=== PATIENT | male | born 1960 | race Caucasian/White ===

== ENCOUNTER 2023-02-25 09:12 | Day surgery (SDC) | payer OTHER ==
[2023-02-23 12:18] VITALS: BMI 43.5
[~2023-02-25 09:12] MED LIST: LACTATED RINGERS 1,000 ML IV SCH
[2023-02-25 09:44] VITALS: TEMP 97
[2023-02-25 09:57] LABS: Glucose,Whole Blood 108 mg/dL (70-110)
[2023-02-25] MEDS ORDERED: PROPOFOL 10 MG/ML 20 ML VIAL IV ONE (10:11)
[2023-02-25] MEDS ORDERED: LIDOCAINE 2% (PF) 20 MG/ML 5 ML VIAL ONE (10:11)
--- NOTE | 2023-02-25 10:19 | P.PCN ---
Date of Procedure: 02/25/23 Procedure(s) Performed: BRIEF HISTORY: Patient is a 62-year-old, pleasant, White female scheduled for an upper endoscopy as a part of evaluation long-standing history of GERD and Barton's esophagus. Last EGD was 3 years ago. He is maintained on omeprazole 20 mg daily and remains asymptomatic. PROCEDURE PERFORMED: Esophagogastroduodenoscopy with biopsy. PREOPERATIVE DIAGNOSIS: GERD/Barton's esophagus. IV sedation per anesthesia. PROCEDURE: After informed consent was obtained, the patient was brought into the endoscopy unit. IV sedation was administered by Anesthesia under continuous monitoring. Initially the Olympus GIF-140 video endoscope was inserted into the mouth. Esophagus intubated without any difficulty. It was gradually advanced into the stomach and duodenum and carefully examined. The bulb and the second part of the duodenum appeared normal. The scope at this time was withdrawn to the stomach, adequately insufflated with air, and upon careful examination, mucosa of the antrum, body, cardia and the fundus appeared normal. There was large amount of retained solid food in the stomach suggestive of diabetic gastroparesis. The scope was then withdrawn into the esophagus. The GE junction was located at 40 cm from the incisors. There was long segment of Barton's esophagus and a 35-40 cm from the incisors status post multiple biopsies to rule out dysplasia. The rest of the esophagus appeared normal. There were no erosions or ulcerations seen and the patient tolerated the procedure well. IMPRESSION: 1. Long segment Barton's esophagus extending from 35 cm to 40 cm from the incisors status post multiple biopsies to rule out dysplasia. 2. Retained food in the stomach suggestive of diabetic gastroparesis.. RECOMMENDATIONS: The findings of this examination were discussed with the patient as well as his family. Was advised to follow with the biopsy results. If the biopsy does not show any evidence of dysplasia, he can have a repeat upper endoscopy in 3 years.. In the meantime he will continue with omeprazole 20 mg daily and follow antireflux measures.
[2023-02-25 10:37] VITALS: RESP 18
[2023-02-25 11:02] VITALS: BP 106/68; PULSE 76
== END 2023-02-25 10:59 | disposition home or self-care (01) ==
LOC: ORWHC2ENDO 09:12
PROVIDERS: ATTEND Internal Medicine Gastroenterology
DX: K22.70 Barrett's esophagus without dysplasia (principal); K21.9 Gastro-esophageal reflux disease without esophagitis; I48.91 Unspecified atrial fibrillation; J45.909 Unspecified asthma, uncomplicated; E11.9 Type 2 diabetes mellitus without complications; N28.9 Disorder of kidney and ureter, unspecified; I63.9 Cerebral infarction, unspecified; E89.6 Postprocedural adrenocortical (-medullary) hypofunction; Z79.84 Long term (current) use of oral hypoglycemic drugs; Z79.85 Long-term (current) use of injectable non-insulin antidiabetic drugs; Z79.01 Long term (current) use of anticoagulants; Z79.899 Other long term (current) drug therapy; Z98.890 Other specified postprocedural states
CPT/HCPCS: 88305; 43239; J2704; J2001

== ENCOUNTER → 2023-06-01 | Outpatient (CLI) | payer OTHER ==
[2023-06-01 09:05] LABS: INR 1.1 (<1.2); Prothrombin Time 12.1 sec (10.0-12.5)
== END | disposition home or self-care (01) ==
LOC: LABWHC1 08:32
PROVIDERS: ATTEND Dentist Oral and Maxillofacial Surgery
DX: D68.32 Hemorrhagic disorder due to extrinsic circulating anticoagulants (principal)
CPT/HCPCS: 36415; 85610

== ENCOUNTER 2023-06-04 19:42 | Inpatient (IN) | payer OTHER ==
[2023-06-04] MEDS: DILTIAZEM 125 MG in SODIUM CHLORIDE 0.9% 100 ML IV SCH (23:12)
[2023-06-04 23:19] LABS: Basophils # (A) 0.1 k/uL (0-0.2); Basophils % (A) 1 %; Eosinophils % (A) 0 %; HCT 54.2 % (39.0-53.0); Lymphocytes # (A) 1.4 k/uL (1.0-4.8); Lymphocytes % (A) 7 %; MCHC 33.3 g/dL (31.0-37.0); MCV 96.2 fL (80.0-100.0); Mean Platelet Volume 9.4; Monocytes # (A) 1.3 k/uL (0-1.0); Monocytes % (A) 7 %; Neutrophils % (A) 84 %; Platelet Count 479 k/uL (150-450); RBC 5.63 m/uL (4.30-5.90); RDW 15.3 % (11.5-15.5)
[2023-06-04 23:29] LABS: ALT 81 U/L (4-49); AST 129 U/L (17-59); African American GFR (CKD) >90 (>60 ml/min/1.73 sqM); Albumin 3.1 g/dL (3.5-5.0); Alkaline Phosphatase 160 U/L (38-126); Anion Gap 16 mmol/L; Blood Urea Nitrogen 27 mg/dL (9-20); Carbon Dioxide 19 mmol/L (22-30); Chloride 98 mmol/L (98-107); Glucose 111 mg/dL (74-99); Non-African American GFR(CKD) 80 (>60 ml/min/1.73 sqM); Potassium 5.2 mmol/L (3.5-5.1); Sodium 133 mmol/L (137-145); Total Bilirubin 0.8 mg/dL (0.2-1.3)
[2023-06-04 23:41] LABS: INR 1.2 (<1.2); Partial Thromboplastin Time 25.7 sec (22.0-30.0); Prothrombin Time 12.9 sec (10.0-12.5)
--- NOTE | 2023-06-04 23:53 | ED ---
Arrhythmia/Palpitations HPI - General Chief Complaint: Arrhythmia/Palpitations Stated Complaint: AFIB RVR, Pneumonia Time Seen by Provider: 06/04/23 19:50 Source: RN/MD, EMS Mode of arrival: EMS - History of Present Illness Initial Comments: Patient presents as a transfer from [facility]. He went in for shortness of breath and chest pain. Has worsened over the past 2 days patient has had a mild cough. Cough is not productive. Increasing fatigue with minimal exercise. Denies any fevers or chills. He has a history of A-fib and is usually in A-fib. He takes Coumadin. He is not on oxygen. Patient's states that the patient had 6 teeth removed on Thursday. Workup was completed at the outside facility. Patient was found to be in A-fib with RVR and was started on a Cardizem drip. Laboratory studies demonstrated a white blood cell count of 19.3. INR was 1.3. Influenza and COVID was negative. He did have a CT of his chest performed which demonstrated pleural effusions, stable small pericardial effusion and atelectasis with a developing left lower lobe infiltrate. Patient was given IV antibiotics to include Rocephin and azithromycin and transferred to our facility for higher level of care. He follows with Dr. Dahl and Dr. Ledesma. - Related Data Home Medications Medication Instructions Recorded Confirmed Cyanocobalamin [Vitamin B-12] 500 mcg PO HS 02/23/23 06/04/23 Cyclobenzaprine [Flexeril] 10 mg PO HS 02/23/23 06/04/23 DULoxetine HCL [Cymbalta] 60 mg PO DAILY 02/23/23 06/04/23 Ergocalciferol [Vitamin D2 (1250 1,250 mcg PO Q14D 02/23/23 06/04/23 Mcg = 86150 Iu)] Montelukast [Singulair] 10 mg PO DAILY 02/23/23 06/04/23 Niacin 1,000 mg PO DAILY 02/23/23 06/04/23 Omalizumab [Xolair] 300 mg SQ Q30D 02/23/23 06/04/23 Omeprazole [PriLOSEC] 20 mg PO DAILY 02/23/23 06/04/23 Pravastatin Sodium [Pravachol] 40 mg PO HS 02/23/23 06/04/23 Pyridoxine HCl (Vitamin B6) 100 mg PO DAILY 02/23/23 06/04/23 [Vitamin B-6] Spironolactone [Aldactone] 25 mg PO DAILY 02/23/23 06/04/23 Warfarin [Coumadin] 5 mg PO SUMOTUWETHSA@2100 02/23/23 06/04/23 allopurinoL 100 mg PO HS 02/23/23 06/04/23 calcitrioL 0.25 mcg PO HS 02/23/23 06/04/23 traMADol HCL 50 mg PO TID PRN 02/23/23 06/04/23 traZODone HCL 100 mg PO HS 02/23/23 06/04/23 Acetaminophen-Codeine 300-30mg 1 tab PO Q4H PRN 06/04/23 06/04/23 [Tylenol w/codeine #3] Albuterol Inhaler [Ventolin Hfa 1 - 2 puff INHALATION RT-Q6H PRN 06/04/23 06/04/23 Inhaler] Amoxicillin 875 mg PO BID 06/04/23 06/04/23 Beclomethasone Dipropionate [Qvar 1 puff INHALATION RT-BID PRN 06/04/23 06/05/23 80mcg Redihaler] Chlorhexidine Gluconate [Peridex] 15 ml PO DIRECTED 06/04/23 06/04/23 Dapagliflozin Propanediol [Farxiga] 10 mg PO DAILY 06/04/23 06/04/23 EPINEPHrine (Auto Inject) [Epipen] 0.3 mg IM ONCE PRN 06/04/23 06/04/23 Ipratropium-Albuterol Nebulize 3 ml INHALATION RT-Q4H PRN 06/04/23 06/04/23 [Duoneb 0.5 mg-3 mg/3 ml Soln] Magnesium Oxide [Magox 400] 800 mg PO DAILY 06/04/23 06/04/23 Metoprolol Tartrate [Lopressor] 50 mg PO BID 06/04/23 06/04/23 Pregabalin [Lyrica] 50 mg PO HS 06/04/23 06/04/23 Tirzepatide [Mounjaro] 10 mg SQ RODRIGUEZ 06/04/23 06/04/23 Warfarin [Coumadin] 7.5 mg PO FR@2100 06/04/23 06/04/23 Allergies Allergy/AdvReac Type Severity Reaction Status Date / Time No Known Allergies Allergy Verified 06/04/23 21:28 Review of Systems ROS Statement: Those systems with pertinent positive or pertinent negative responses have been documented in the HPI. ROS Other: All systems not noted in ROS Statement are negative. Past Medical History Past Medical History: Atrial Fibrillation, Asthma, CVA/TIA, Diabetes Mellitus, Deep Vein Thrombosis (DVT), GERD/Reflux, Renal Disease, Sleep Apnea/CPAP/BIPAP Additional Past Medical History / Comment(s): MARTINEZ'S ESOPHAGUS, GOUT, MULT. TIA'S, STAGE 2 KIDNEY DISEASE, CONN DISEASE History of Any Multi-Drug Resistant Organisms: None Reported Past Surgical History: Cholecystectomy, Hernia Repair Additional Past Surgical History / Comment(s): ADRENAL GLAND REMOVAL (CONN DISEASE), STAN FUNDOPLICATION, MULT. HERNIA REPAIRS, carpal tunnel Past Anesthesia/Blood Transfusion Reactions: No Reported Reaction Past Psychological History: Anxiety, Depression Smoking Status: Never smoker Past Alcohol Use History: None Reported Past Drug Use History: None Reported General Exam General appearance: alert, in no apparent distress Head exam: Present: atraumatic, normocephalic, normal inspection Eye exam: Present: normal appearance, PERRL, EOMI. Absent: scleral icterus, conjunctival injection, periorbital swelling ENT exam: Present: normal exam, mucous membranes moist Neck exam: Present: normal inspection. Absent: tenderness, meningismus, lymphadenopathy Respiratory exam: Present: normal lung sounds bilaterally, decreased breath sounds. Absent: respiratory distress, wheezes, rales, rhonchi, stridor Cardiovascular Exam: Present: tachycardia, irregular rhythm. Absent: systolic murmur, diastolic murmur, rubs, gallop, clicks GI/Abdominal exam: Present: soft, normal bowel sounds. Absent: distended, tenderness, guarding, rebound, rigid Extremities exam: Present: normal inspection, full ROM, normal capillary refill. Absent: tenderness, pedal edema, joint swelling, calf tenderness Back exam: Present: normal inspection Neurological exam: Present: alert, oriented X3, CN II-XII intact Psychiatric exam: Present: normal affect, normal mood Skin exam: Present: warm, dry, intact, normal color. Absent: rash Course Vital Signs 06/04/23 06/04/23 06/04/23 19:44 21:00 22:00 Temperature 98.2 F 99.8 F H Pulse Rate 126 H 128 H 136 H Respiratory 18 20 18 Rate Blood Pressure 137/99 131/89 141/94 O2 Sat by Pulse 98 95 95 Oximetry 06/04/23 06/05/23 23:00 00:00 Temperature Pulse Rate 118 H 116 H Respiratory 18 18 Rate Blood Pressure 113/76 110/83 O2 Sat by Pulse 95 95 Oximetry Medical Decision Making - Medical Decision Making Was pt. sent in by a medical professional or institution (, PA, [employer] PROGRAMMER, urgent care, hospital, or group home...) When possible be specific @ -Patient sent from [facility] Did you speak to anyone other than the patient for history (EMS, parent, family, police, friend...)? What history was obtained from this source @ -Spoke with EMS Did you review nursing and triage notes (agree or disagree)? Why? @ -I reviewed and agree with nursing and triage notes Were old charts reviewed (outside hosp., previous admission, EMS record, old EKG, old radiological studies, urgent care reports/EKG's, group home records)? Report findings @ -I reviewed the patient's chart from [facility] Differential Diagnosis (chest pain, altered mental status, abdominal pain women, abdominal pain men, vaginal bleeding, weakness, fever, dyspnea, syncope, headache, dizziness, GI bleed, back pain, seizure, CVA, palpatations, mental health, musculoskeletal)? @ -Differential Dyspnea: Coronary syndrome, arrhythmia, tamponade, asthma, COPD, pulmonary embolism, pneumonia, pneumothorax, pulmonary effusion, anaphylaxis, diabetic ketoacidosis, flailed chest, pulmonary contusion, diaphragmatic rupture, anemia, neuromuscular, this is not meant to be an all-inclusive list. EKG interpreted by me (3pts min.). @ -Yes and demonstrates atrial flutter with a rate of 132. QRS 74. QTc of 433. No acute ST segment elevations or depressions X-rays interpreted by me (1pt min.). @ -None done CT interpreted by me (1pt min.). @ -None done U/S interpreted by me (1pt. min.). @ -None done What testing was considered but not performed or refused? (CT, X-rays, U/S, labs)? Why? @ -None What meds were considered but not given or refused? Why? @ -None Did you discuss the management of the patient with other professionals (professionals i.e. , PA, [employer] PROGRAMMER, lab, RT, psych nurse, hospital social worker, bonding machine setter, teacher, detention officer, case planner)? Give summary @ -Spoke with Dr. Rowan for admission Was smoking cessation discussed for >3mins.? @ -No Was critical care preformed (if so, how long)? @ -Yes, 40 minutes Were there social determinants of health that impacted care today? How? (Homelessness, low income, unemployed, alcoholism, drug addiction, transportation, low edu. Level, literacy, decrease access to med. care, penitentiary, rehab)? @ -No Was there de-escalation of care discussed even if they declined (Discuss DNR or withdrawal of care, Hospice)? DNR status @ -No What co-morbidities impacted this encounter? (DM, HTN, Smoking, COPD, CAD, Cancer, CVA, ARF, Chemo, Hep., AIDS, mental health diagnosis, sleep apnea, morbid obesity)? @ -Congestive heart failure Was patient admitted / discharged? Hospital course, mention meds given and r oute, prescriptions, significant lab abnormalities, going to OR and other pertinent info. @ -Admitted. Upon arrival I did review the patient's transfer packet. I repeated a set of labs. Cardizem was continued. Patient admitted to Dr. Rowan who accepted admission Undiagnosed new problem with uncertain prognosis? @ -Yes Drug Therapy requiring intensive monitoring for toxicity (Heparin, Nitro, Insulin, Cardizem)? @ -Yes, Cardizem Were any procedures done? @ -No Diagnosis/symptom? @ -Acute respiratory insufficiency, A-fib with RVR, community-acquired pneumonia, acute exacerbation of CHF, pericardial effusion Acute, or Chronic, or Acute on Chronic? @ -Acute Uncomplicated (without systemic symptoms) or Complicated (systemic symptoms)? @ -Complicated Side effects of treatment? @ -No Exacerbation, Progression, or Severe Exacerbation? @ -No Poses a threat to life or bodily function? How? (Chest pain, [place], HI, pneumonia, PE, COPD, DKA, ARF, appy, cholecystitis, CVA, Diverticulitis, Homicidal, Suicidal, threat to staff... and all critical care pts) @Yes as patient does have respiratory insufficiency - Lab Data Result diagrams: 06/07/23 04:20 06/07/23 04:20 Lab Results 06/04/23 06/04/23 06/04/23 Range/Units 23:09 23:09 23:09 WBC 19.0 H (3.8-10.6) k/uL RBC 5.63 (4.30-5.90) m/uL Hgb 18.0 H (13.0-17.5) gm/dL Hct 54.2 H (39.0-53.0) % MCV 96.2 (80.0-100.0) fL MCH 32.0 (25.0-35.0) pg MCHC 33.3 (31.0-37.0) g/dL RDW 15.3 (11.5-15.5) % Plt Count 479 H (150-450) k/uL MPV 9.4 Neutrophils % 84 % Lymphocytes % 7 % Monocytes % 7 % Eosinophils % 0 % Basophils % 1 % Neutrophils # 16.0 H (1.3-7.7) k/uL Lymphocytes # 1.4 (1.0-4.8) k/uL Monocytes # 1.3 H (0-1.0) k/uL Eosinophils # 0.0 (0-0.7) k/uL Basophils # 0.1 (0-0.2) k/uL PT 12.9 H (10.0-12.5) sec INR 1.2 H (<1.2) APTT 25.7 (22.0-30.0) sec Sodium 133 L (137-145) mmol/L Potassium 5.2 H (3.5-5.1) mmol/L Chloride 98 (98-107) mmol/L Carbon Dioxide 19 L (22-30) mmol/L Anion Gap 16 mmol/L BUN 27 H (9-20) mg/dL Creatinine 1.00 (0.66-1.25) mg/dL Est GFR (CKD-EPI)AfAm >90 (>60 ml/min/1.73 sqM) Est GFR (CKD-EPI)NonAf 80 (>60 ml/min/1.73 sqM) Glucose 111 H (74-99) mg/dL Calcium 9.0 (8.4-10.2) mg/dL Total Bilirubin 0.8 (0.2-1.3) mg/dL AST 129 H (17-59) U/L ALT 81 H (4-49) U/L Alkaline Phosphatase 160 H (38-126) U/L Troponin I (0.000-0.034) ng/mL Total Protein 6.0 L (6.3-8.2) g/dL Albumin 3.1 L (3.5-5.0) g/dL 06/04/23 Range/Units 23:09 WBC (3.8-10.6) k/uL RBC (4.30-5.90) m/uL Hgb (13.0-17.5) gm/dL Hct (39.0-53.0) % MCV (80.0-100.0) fL MCH (25.0-35.0) pg MCHC (31.0-37.0) g/dL RDW (11.5-15.5) % Plt Count (150-450) k/uL MPV Neutrophils % % Lymphocytes % % Monocytes % % Eosinophils % % Basophils % % Neutrophils # (1.3-7.7) k/uL Lymphocytes # (1.0-4.8) k/uL Monocytes # (0-1.0) k/uL Eosinophils # (0-0.7) k/uL Basophils # (0-0.2) k/uL PT (10.0-12.5) sec INR (<1.2) APTT (22.0-30.0) sec Sodium (137-145) mmol/L Potassium (3.5-5.1) mmol/L Chloride (98-107) mmol/L Carbon Dioxide (22-30) mmol/L Anion Gap mmol/L BUN (9-20) mg/dL Creatinine (0.66-1.25) mg/dL Est GFR (CKD-EPI)AfAm (>60 ml/min/1.73 sqM) Est GFR (CKD-EPI)NonAf (>60 ml/min/1.73 sqM) Glucose (74-99) mg/dL Calcium (8.4-10.2) mg/dL Total Bilirubin (0.2-1.3) mg/dL AST (17-59) U/L ALT (4-49) U/L Alkaline Phosphatase (38-126) U/L Troponin I <0.012 (0.000-0.034) ng/mL Total Protein (6.3-8.2) g/dL Albumin (3.5-5.0) g/dL Disposition Clinical Impression: Atrial fibrillation with RVR, Chest pain, CAP (community acquired pneumonia), Pericardial effusion, Pleural effusion Disposition: ADMITTED IP TO THIS [facility] Condition: Stable Is patient prescribed a controlled substance at d/c from ED?: No Time of Disposition: 00:35 Decision to Admit Reason: Admit from EC Decision Date: 06/05/23 Decision Time: 00:35
[2023-06-05] MEDS ORDERED: NON FORMULARY DRUG (Albuterol Inhaler 90 MCG Puff) INHALATION PRN (00:20)
[2023-06-05] MEDS ORDERED: IPRATROPIUM-ALBUTEROL 3 ML NEB INHALATION PRN (00:20)
[2023-06-05] MEDS ORDERED: NALOXONE 0.4 MG/ML 1 ML VIAL IV PRN (00:35)
[2023-06-05] MEDS: CYCLOBENZAPRINE 10 MG TAB PO SCH (00:40)
[2023-06-05] MEDS: allopurinoL 100 MG TAB PO SCH (00:40)
[2023-06-05] MEDS: traMADol 50 MG TAB PO PRN (00:40)
[2023-06-05] MEDS: CYANOCOBALAMIN 500 MCG TAB PO SCH (00:40)
[2023-06-05] MEDS: PRAVASTATIN SODIUM 40 MG TAB PO SCH (00:40)
[2023-06-05] MEDS: PREGABALIN 50 MG CAP PO SCH (00:40)
[2023-06-05 01:32] LABS: Glucose,Whole Blood 116 mg/dL (70-110)
[2023-06-05] MEDS: traZODone HCL 100 MG TAB PO SCH (01:40)
[2023-06-05] MEDS ORDERED: DEXTROSE 50% SYRINGE 50 ML IVP PRN ×2 (05:39)
--- NOTE | 2023-06-05 05:50 | P.HPIM ---
History of Present Illness H&P Date: 06/05/23 Chief Complaint: Shortness of breath chest pain 62-year-old male A-fib on Coumadin, obstructive sleep apnea, diabetes mellitus hypertension Patient is a transfer from [facility] for further cardiology evaluation and treatment. He presented there complaining of 4-day history of shortness of breath progressive in nature with minimal exertion denies any orthopnea denies any fevers or chills however reports nonproductive cough pressure-like chest pain and severe shortness of breath today for which she decided to go to hospital for evaluation all started after he had some dental work 4 days ago denies any recent travel or hospital stay denies any history of blood clots denies any GI bleeding denies any nausea vomiting abdominal pain denies any known sick contact patient denies any leg swelling Upon presenting to [facility] he was found to be in A-fib with RVR Cardizem bolus then started on Cardizem drip CT of the chest was done showed left lower lobe infiltrate patient was started on antibiotics and was transferred to our facility Patient denies tobacco smoking illicit drugs or alcohol Patient denies being on home oxygen Patient reports peripheral arterial disease with cold extremities and usually bluish discoloration of his toes review of systems Pertinent positives as noted in HPI. All other systems were reviewed and are negative on exam Constitutional: No acute distress, conversant, pleasant Eyes: Anicteric sclerae, moist conjunctiva, Pupils equal round reactive to light ENMT: NC/AT Oropharynx clear, no erythema, or exudates Neck: Supple, no masses, or JVD No carotid bruits No thyromegaly Lungs: Diminished breath sounds at lung bases bilaterally Clear to percussion Normal respiratory effort, no accessory muscle use Cardiovascular: Heart regular in rate and rhythm, No murmurs, gallops, or rubs No peripheral edema Abdominal: Soft Nontender, no guarding, rebound or rigidity Abdomen moving with respiration Normoactive bowel sounds No hepatomegaly, No splenomegaly Extremities: No digital cyanosis No clubbing Pedal pulses weak and symmetrical, capillary refill delayed and right big toe with cold extremities patient claims this is chronic and his baseline Radial pulses intact and symmetrical No calf tenderness Psychiatric: Alert and oriented to person, place and time Appropriate affect fair judgement Neuro Muscles Strength 5/5 in all 4 extremities Sensation to light touch grossly present throughout Cranial nerves II-XII grossly intact Past Medical History Past Medical History: Atrial Fibrillation, Asthma, CVA/TIA, Diabetes Mellitus, Deep Vein Thrombosis (DVT), GERD/Reflux, Renal Disease, Sleep Apnea/CPAP/BIPAP Additional Past Medical History / Comment(s): MARTINEZ'S ESOPHAGUS, GOUT, MULT. TIA'S, STAGE 2 KIDNEY DISEASE, CONN DISEASE History of Any Multi-Drug Resistant Organisms: None Reported Past Surgical History: Cholecystectomy, Hernia Repair Additional Past Surgical History / Comment(s): ADRENAL GLAND REMOVAL (CONN DISEASE), STAN FUNDOPLICATION, MULT. HERNIA REPAIRS, carpal tunnel Past Anesthesia/Blood Transfusion Reactions: No Reported Reaction Past Psychological History: Anxiety, Depression Smoking Status: Never smoker Past Alcohol Use History: None Reported Past Drug Use History: None Reported Medications and Allergies Home Medications Medication Instructions Recorded Confirmed Type Cyanocobalamin [Vitamin B-12] 500 mcg PO HS 02/23/23 06/04/23 History Cyclobenzaprine [Flexeril] 10 mg PO HS 02/23/23 06/04/23 History DULoxetine HCL [Cymbalta] 60 mg PO DAILY 02/23/23 06/04/23 History Ergocalciferol [Vitamin D2 (1250 1,250 mcg PO Q14D 02/23/23 06/04/23 History Mcg = 50631 Iu)] Montelukast [Singulair] 10 mg PO DAILY 02/23/23 06/04/23 History Niacin 1,000 mg PO DAILY 02/23/23 06/04/23 History Omalizumab [Xolair] 300 mg SQ Q30D 02/23/23 06/04/23 History Omeprazole [PriLOSEC] 20 mg PO DAILY 02/23/23 06/04/23 History Pravastatin Sodium [Pravachol] 40 mg PO HS 02/23/23 06/04/23 History Pyridoxine HCl (Vitamin B6) 100 mg PO DAILY 02/23/23 06/04/23 History [Vitamin B-6] Spironolactone [Aldactone] 25 mg PO DAILY 02/23/23 06/04/23 History Warfarin [Coumadin] 5 mg PO SUMOTUWETHSA@2100 02/23/23 06/04/23 History allopurinoL 100 mg PO HS 02/23/23 06/04/23 History calcitrioL 0.25 mcg PO HS 02/23/23 06/04/23 History traMADol HCL 50 mg PO TID PRN 02/23/23 06/04/23 History traZODone HCL 100 mg PO HS 02/23/23 06/04/23 History Acetaminophen-Codeine 300-30mg 1 tab PO Q4H PRN 06/04/23 06/04/23 History [Tylenol w/codeine #3] Albuterol Inhaler [Ventolin Hfa 1 - 2 puff INHALATION RT-Q6H PRN 06/04/23 06/04/23 History Inhaler] Amoxicillin 875 mg PO BID 06/04/23 06/04/23 History Beclomethasone Dipropionate [Qvar 1 puff INHALATION DIRECTED PRN 06/04/23 06/04/23 History 80mcg Redihaler] Chlorhexidine Gluconate [Peridex] 15 ml PO DIRECTED 06/04/23 06/04/23 History Dapagliflozin Propanediol [Farxiga] 10 mg PO DAILY 06/04/23 06/04/23 History EPINEPHrine (Auto Inject) [Epipen] 0.3 mg IM ONCE PRN 06/04/23 06/04/23 History Ipratropium-Albuterol Nebulize 3 ml INHALATION RT-Q4H PRN 06/04/23 06/04/23 History [Duoneb 0.5 mg-3 mg/3 ml Soln] Magnesium Oxide [Magox 400] 800 mg PO DAILY 06/04/23 06/04/23 History Metoprolol Tartrate [Lopressor] 50 mg PO BID 06/04/23 06/04/23 History Pregabalin [Lyrica] 50 mg PO HS 06/04/23 06/04/23 History Tirzepatide [Mounjaro] 10 mg SQ RODRIGUEZ 06/04/23 06/04/23 History Warfarin [Coumadin] 7.5 mg PO FR@2100 06/04/23 06/04/23 History Allergies Allergy/AdvReac Type Severity Reaction Status Date / Time No Known Allergies Allergy Verified 06/04/23 21:28 Physical Exam Vitals: Vital Signs Temp Pulse Resp BP Pulse Ox 06/05/23 00:00 116 H 18 110/83 95 06/04/23 23:00 118 H 18 113/76 95 06/04/23 22:00 136 H 18 141/94 95 06/04/23 21:00 99.8 F H 128 H 20 131/89 95 06/04/23 19:44 98.2 F 126 H 18 137/99 98 Intake and Output 06/04/23 06/04/23 06/05/23 14:59 22:59 06:59 Other: Weight 122.47 kg Results CBC & Chem 7: 06/04/23 23:09 06/04/23 23:09 Labs: Abnormal Lab Results - Last 24 Hours (Table) 06/04/23 06/04/23 06/04/23 Range/Units 23:09 23:09 23:09 WBC 19.0 H (3.8-10.6) k/uL Hgb 18.0 H (13.0-17.5) gm/dL Hct 54.2 H (39.0-53.0) % Plt Count 479 H (150-450) k/uL Neutrophils # 16.0 H (1.3-7.7) k/uL Monocytes # 1.3 H (0-1.0) k/uL PT 12.9 H (10.0-12.5) sec INR 1.2 H (<1.2) Sodium 133 L (137-145) mmol/L Potassium 5.2 H (3.5-5.1) mmol/L Carbon Dioxide 19 L (22-30) mmol/L BUN 27 H (9-20) mg/dL Glucose 111 H (74-99) mg/dL AST 129 H (17-59) U/L ALT 81 H (4-49) U/L Alkaline Phosphatase 160 H (38-126) U/L Total Protein 6.0 L (6.3-8.2) g/dL Albumin 3.1 L (3.5-5.0) g/dL Assessment and Plan Assessment: 62-year-old male with A-fib on Coumadin coming in for progressive shortness of breath over the past 4 days associated with nonproductive cough and chest pain he went to [facility] was diagnosed with pneumonia found to be in A- fib with RVR discussed case with ED doctor and accepted the admission for sepsis secondary to community-acquired pneumonia and A-fib with RVR with anticipated length of stay more than 2 midnights Sepsis secondary to community-acquired pneumonia Plan Follow-up cultures Check urine Legionella antigen Acute respiratory viral panel negative for COVID RSV and influenza Initiate patient on azithromycin 500 mg p.o. daily Rocephin 2 g IV piggyback daily Symptomatic control of cough with Tessalon Perles 20 mg 3 times daily as needed Tylenol 650 mg p.o. every 4 hours as needed for fever CT scan done at different facility showed left lower lobe infiltrate and bilateral small pleural effusion Continue with DuoNebs as needed Continue with Singulair But white count 19 tachycardia upon presentation initially Troponins negative A-fib with RVR Continue with Coumadin dosing by pharmacy Patient converted with Cardizem bolus continue with Cardizem drip Cardiac monitoring Monitor vital signs Troponin negative Diabetes mellitus Insulin sliding scale Continue with Farxiga Obstructive sleep apnea Encouraged to use CPAP at bedtime Transaminitis AST 129 ALT 81 alk phos 160 Hold statin Monitor liver enzymes Renal function unremarkable Sodium 133 potassium 5.2 BUN 27 creatinine 1 Full code DVT prophylaxis on Coumadin for A-fib
[2023-06-05 06:09] LABS: Glucose,Whole Blood 123 mg/dL (70-110)
[2023-06-05] MEDS: INSULIN ASPART (NovoLOG) 100 UNIT/ML VIAL SQ SCH (06:13)
[2023-06-05] MEDS: PANTOPRAZOLE 40 MG TABLET PO SCH (06:31)
[2023-06-05] MEDS: MAGNESIUM OXIDE 400 MG TAB PO SCH (08:17)
[2023-06-05] MEDS: DULoxetine HCL 60 MG CAPSULE.DR PO SCH (08:17)
[2023-06-05] MEDS: MONTELUKAST 10 MG TAB PO SCH (08:17)
[2023-06-05] MEDS: DAPAGLIFLOZIN PROPANEDIOL 10 MG TABLET PO SCH (08:17)
[2023-06-05] MEDS: SPIRONOLACTONE 25 MG TAB PO SCH (08:17)
[2023-06-05] MEDS: AZITHROMYCIN 500 MG TAB PO SCH (08:17)
[2023-06-05] MEDS: HEPARIN SOD,PORK IN 0.45% NACL 25,000 UNIT in 0.45% NACL 1 250ML.BAG IV SCH (08:29)
[2023-06-05] MEDS: METOPROLOL TARTRATE 50 MG TAB PO SCH (08:29)
[2023-06-05] MEDS: NIACIN TR 500 MG CAPLET PO SCH (08:29)
[2023-06-05] MEDS: HEPARIN SODIUM 1,000 UN/ML (10ML VL) IV ONE (08:30)
[2023-06-05] MEDS: DILTIAZEM 125 MG in SODIUM CHLORIDE 0.9% 100 ML IV SCH (09:00)
[2023-06-05] MEDS ORDERED: BECLOMETHASONE DIPROPIONATE 10.6 GM INHALATION PRN (09:00)
[2023-06-05] MEDS: PYRIDOXINE 50 MG TAB PO SCH (09:00)
--- NOTE | 2023-06-05 10:41 | P.CRDCN ---
History of Present Illness History of present illness: HISTORY OF PRESENT ILLNESS: This is a 62-year-old male with a past medical history significant for GERD, atrial fibrillation, and hyperlipidemia. Patient follows in the office with Dr. Bahena. We have been asked to see the patient in consultation for chest pain and A-fib with RVR. Patient examined at the bedside. Patient states that he had 6 teeth removed last week under general anesthesia. He states that his Coumadin was held prior to this procedure. He has since been resumed on his Coumadin. INR 1.2 on admission. Patient presented to the hospital with shortness of breath. He states he has been feeling short of breath for the past 5 days. Patient was also found to be in A-fib with RVR. Patient currently remains in atrial fibrillation with a heart rate around 110. He is on a Cardizem drip at 10 mg an hour. DIAGNOSTICS: - EKG reveals A-fib with RVR. - Laboratory data: WBC 19.0. Hemoglobin 18.0. Platelet count 479. Sodium 133. Potassium 5.2. BUN 27. Creatinine 1.0. Troponin negative x 1. - Current home cardiac medications include Coumadin 7.5 mg on Thursday and 5 mg Thursday, Pravachol 40 mg at night, spironolactone 25 mg daily, niacin 1000 mg daily, metoprolol titrate 50 mg twice a day. REVIEW OF SYSTEMS: At the time of my exam: CONSTITUTIONAL: Denies fever or chills. HEENT: Denies blurred vision, vision changes, or eye pain. Denies hemoptysis CARDIOVASCULAR: Denies chest pain. Denies orthopnea. Denies PND. Denies palpitations RESPIRATORY: Reports shortness of breath. GASTROINTESTINAL: Denies abdominal pain. Denies nausea or vomiting. HEMATOLOGIC: Denies bleeding disorders. GENITOURINARY: Denies any blood in urine. SKIN: Denies pruitis. Denies rash. PHYSICAL EXAM: VITAL SIGNS: Reviewed. GENERAL: Well-developed in no acute distress. HEENT: Head is normocephalic. Pupils are equal, round. Sclerae anicteric. Mucous membranes of the mouth are moist. Neck supple. No JVD or thyromegaly LUNGS: Respirations even and unlabored. Lungs with rhonchi noted HEART: Tachycardic. Irregular rate and rhythm. S1 and S2 heard. ABDOMEN: Soft. Nondistended. Nontender. EXTREMITIES: Normal range of motion. No clubbing or cyanosis. Peripheral pulses intact. No lower extremity edema NEUROLOGIC: Awake and alert. Oriented x 3. ASSESSMENT: Shortness of breath Pneumonia Leukocytosis Persistent atrial fibrillation with RVR Subtherapeutic INR, secondary to recent dental procedure and with holding of Coumadin Recent dental extraction x 6 teeth Hyperlipidemia GERD PLAN: 2D echo ordered. Await results Continue Coumadin. Begin IV heparin until INR is therapeutic Wean off Cardizem drip as tolerated Increase metoprolol to 100 mg twice a day Continue telemetry monitoring Further recommendations pending patient course Nurse practitioner note has been reviewed by physician. Signing provider agrees with the documented findings, assessment, and plan of care documented by MIG WELDER as a scribe. Past Medical History Past Medical History: Atrial Fibrillation, Asthma, CVA/TIA, Diabetes Mellitus, Deep Vein Thrombosis (DVT), GERD/Reflux, Renal Disease, Sleep Apnea/CPAP/BIPAP Additional Past Medical History / Comment(s): MARTINEZ'S ESOPHAGUS, GOUT, MULT. TIA'S, STAGE 2 KIDNEY DISEASE, CONN DISEASE History of Any Multi-Drug Resistant Organisms: None Reported Past Surgical History: Cholecystectomy, Hernia Repair Additional Past Surgical History / Comment(s): ADRENAL GLAND REMOVAL (CONN DISEASE), STAN FUNDOPLICATION, MULT. HERNIA REPAIRS, carpal tunnel Past Anesthesia/Blood Transfusion Reactions: No Reported Reaction Past Psychological History: Anxiety, Depression Smoking Status: Never smoker Past Alcohol Use History: None Reported Past Drug Use History: None Reported Medications and Allergies Home Medications Medication Instructions Recorded Confirmed Type Cyanocobalamin [Vitamin B-12] 500 mcg PO HS 02/23/23 06/04/23 History Cyclobenzaprine [Flexeril] 10 mg PO HS 02/23/23 06/04/23 History DULoxetine HCL [Cymbalta] 60 mg PO DAILY 02/23/23 06/04/23 History Ergocalciferol [Vitamin D2 (1250 1,250 mcg PO Q14D 02/23/23 06/04/23 History Mcg = 20358 Iu)] Montelukast [Singulair] 10 mg PO DAILY 02/23/23 06/04/23 History Niacin 1,000 mg PO DAILY 02/23/23 06/04/23 History Omalizumab [Xolair] 300 mg SQ Q30D 02/23/23 06/04/23 History Omeprazole [PriLOSEC] 20 mg PO DAILY 02/23/23 06/04/23 History Pravastatin Sodium [Pravachol] 40 mg PO HS 02/23/23 06/04/23 History Pyridoxine HCl (Vitamin B6) 100 mg PO DAILY 02/23/23 06/04/23 History [Vitamin B-6] Spironolactone [Aldactone] 25 mg PO DAILY 02/23/23 06/04/23 History Warfarin [Coumadin] 5 mg PO SUMOTUWETHSA@2100 02/23/23 06/04/23 History allopurinoL 100 mg PO HS 02/23/23 06/04/23 History calcitrioL 0.25 mcg PO HS 02/23/23 06/04/23 History traMADol HCL 50 mg PO TID PRN 02/23/23 06/04/23 History traZODone HCL 100 mg PO HS 02/23/23 06/04/23 History Acetaminophen-Codeine 300-30mg 1 tab PO Q4H PRN 06/04/23 06/04/23 History [Tylenol w/codeine #3] Albuterol Inhaler [Ventolin Hfa 1 - 2 puff INHALATION RT-Q6H PRN 06/04/23 06/04/23 History Inhaler] Amoxicillin 875 mg PO BID 06/04/23 06/04/23 History Beclomethasone Dipropionate [Qvar 1 puff INHALATION DIRECTED PRN 06/04/23 History 80mcg Redihaler] Chlorhexidine Gluconate [Peridex] 15 ml PO DIRECTED 06/04/23 06/04/23 History Dapagliflozin Propanediol [Farxiga] 10 mg PO DAILY 06/04/23 06/04/23 History EPINEPHrine (Auto Inject) [Epipen] 0.3 mg IM ONCE PRN 06/04/23 06/04/23 History Ipratropium-Albuterol Nebulize 3 ml INHALATION RT-Q4H PRN 06/04/23 06/04/23 History [Duoneb 0.5 mg-3 mg/3 ml Soln] Magnesium Oxide [Magox 400] 800 mg PO DAILY 06/04/23 06/04/23 History Metoprolol Tartrate [Lopressor] 50 mg PO BID 06/04/23 06/04/23 History Pregabalin [Lyrica] 50 mg PO HS 06/04/23 06/04/23 History Tirzepatide [Mounjaro] 10 mg SQ RODRIGUEZ 06/04/23 06/04/23 History Warfarin [Coumadin] 7.5 mg PO FR@2100 06/04/23 06/04/23 History Allergies Allergy/AdvReac Type Severity Reaction Status Date / Time No Known Allergies Allergy Verified 06/04/23 21:28 Physical Exam Vitals: Vital Signs Temp Pulse Pulse Resp BP BP Pulse Ox 06/05/23 04:00 98.1 F 104 H 19 103/74 93 L 06/05/23 01:24 97.9 F 120 H 19 129/75 100 06/05/23 00:00 116 H 18 110/83 95 06/04/23 23:00 118 H 18 113/76 95 06/04/23 22:00 136 H 18 141/94 95 06/04/23 21:00 99.8 F H 128 H 20 131/89 95 06/04/23 19:44 98.2 F 126 H 18 137/99 98 Intake and Output 06/04/23 06/05/23 06/05/23 22:59 06:59 14:59 Other: Voiding Method Urinal # Voids 1 Weight 122.47 kg 122.47 kg Results 06/04/23 23:09 06/04/23 23:09 Cardiac Enzymes 06/04/23 06/04/23 Range/Units 23:09 23:09 AST 129 H (17-59) U/L Troponin I <0.012 (0.000-0.034) ng/mL Coagulation 06/04/23 Range/Units 23:09 PT 12.9 H (10.0-12.5) sec APTT 25.7 (22.0-30.0) sec CBC 06/04/23 Range/Units 23:09 WBC 19.0 H (3.8-10.6) k/uL RBC 5.63 (4.30-5.90) m/uL Hgb 18.0 H (13.0-17.5) gm/dL Hct 54.2 H (39.0-53.0) % Plt Count 479 H (150-450) k/uL Comprehensive Metabolic Panel 06/04/23 Range/Units 23:09 Sodium 133 L (137-145) mmol/L Potassium 5.2 H (3.5-5.1) mmol/L Chloride 98 (98-107) mmol/L Carbon Dioxide 19 L (22-30) mmol/L BUN 27 H (9-20) mg/dL Creatinine 1.00 (0.66-1.25) mg/dL Glucose 111 H (74-99) mg/dL Calcium 9.0 (8.4-10.2) mg/dL AST 129 H (17-59) U/L ALT 81 H (4-49) U/L Alkaline Phosphatase 160 H (38-126) U/L Total Protein 6.0 L (6.3-8.2) g/dL Albumin 3.1 L (3.5-5.0) g/dL Current Medications Generic Name Dose Route Start Last Admin Trade Name Freq PRN Reason Stop Dose Admin Acetaminophen/Codeine Phosphate 1 each 06/05/23 00:20 Acetaminophen-Codeine 300-30mg Tab PO Q4H PRN Pain Albuterol/Ipratropium 3 ml 06/05/23 00:20 Ipratropium-Albuterol 3 Ml Neb INHALATION RT-Q4H PRN Shortness Of Breath Allopurinol 100 mg 06/05/23 00:30 06/05/23 00:40 Allopurinol 100 Mg Tab PO 100 mg HS ADRIANA Administration Azithromycin 500 mg 06/05/23 09:00 Azithromycin 500 Mg Tab PO 06/07/23 09:01 DAILY [facility] Protocol Calcitriol 0.25 mcg 06/05/23 00:30 06/05/23 00:39 Calcitriol 0.25 Mcg Cap PO 0.25 mcg HS ADRIANA Administration Cyanocobalamin 500 mcg 06/05/23 00:30 06/05/23 00:40 Cyanocobalamin 500 Mcg Tab PO 500 mcg HS ADRIANA Administration Cyclobenzaprine HCl 10 mg 06/05/23 00:30 06/05/23 00:40 Cyclobenzaprine 10 Mg Tab PO 10 mg HS ADRIANA Administration Dapagliflozin 10 mg 06/05/23 09:00 Dapagliflozin Propanediol 10 Mg Tablet PO DAILY [facility] Dextrose/Water 25 ml 06/05/23 05:39 Dextrose 50% Syringe 50 Ml IVP PER PROTOCOL PRN Hypoglycemia Protocol Dextrose/Water 50 ml 06/05/23 05:39 Dextrose 50% Syringe 50 Ml IVP PER PROTOCOL PRN Hypoglycemia Protocol Duloxetine HCl 60 mg 06/05/23 09:00 Duloxetine Hcl 60 Mg Capsule.Dr PO DAILY [facility] Diltiazem HCl 125 mg/ Sodium 125 mls @ 10 mls/hr 06/04/23 22:45 06/04/23 23:12 Chloride IV 10 mg/hr .[id number] ADRIANA 10 mls/hr Administration 10 MG/HR Ceftriaxone Sodium 2 gm/ 50 mls @ 100 mls/hr 06/05/23 06:00 06/05/23 06:30 Sodium Chloride IVPB 100 mls/hr Q24H ADRIANA Administration Protocol Insulin Aspart 0 unit 06/05/23 07:30 06/05/23 06:13 Insulin Aspart (Novolog) 100 Unit/Ml Vial SQ Not Given ACHS [facility] Protocol Magnesium Oxide 800 mg 06/05/23 09:00 Magnesium Oxide 400 Mg Tab PO DAILY [facility] Miscellaneous Information 1 each 06/05/23 00:24 Warfarin Per Pharmacy MISCELLANE DIRECTED PRN Per Protocol Protocol Montelukast Sodium 10 mg 06/05/23 09:00 Montelukast 10 Mg Tab PO DAILY [facility] Naloxone HCl 0.2 mg 06/05/23 00:35 Naloxone 0.4 Mg/Ml 1 Ml Vial IV Q2M PRN Opioid Reversal Non-Formulary Medication 1,000 mg 06/05/23 09:00 Niacin [Niacin] PO DAILY [facility] Pantoprazole Sodium 20 mg 06/05/23 07:30 06/05/23 06:31 Pantoprazole 40 Mg Tablet PO 20 mg [id number] ADRIANA Administration Pregabalin 50 mg 06/05/23 00:30 06/05/23 00:40 Pregabalin 50 Mg Cap PO 50 mg HS ADRIANA Administration Pyridoxine HCl 100 mg 06/05/23 09:00 Pyridoxine 50 Mg Tab PO DAILY [facility] Spironolactone 25 mg 06/05/23 09:00 Spironolactone 25 Mg Tab PO DAILY [facility] Tramadol HCl 50 mg 06/05/23 00:20 06/05/23 00:40 Tramadol 50 Mg Tab PO 50 mg TID PRN Administration Pain Trazodone HCl 100 mg 06/05/23 00:30 06/05/23 01:40 Trazodone Hcl 100 Mg Tab PO 100 mg HS ADRIANA Administration Intake and Output 06/04/23 06/05/23 06/05/23 22:59 06:59 14:59 Other: Voiding Method Urinal # Voids 1 Weight 122.47 kg 122.47 kg 06/04/23 23:09 06/04/23 23:09
[2023-06-05 11:20] LABS: Glucose,Whole Blood 113 mg/dL (70-110)
[2023-06-05] MEDS: Acetaminophen-Codeine 300-30mg TAB PO PRN (11:22)
[2023-06-05 12:24] LABS: Basophils # (A) 0.1 k/uL (0-0.2); Basophils % (A) 1 %; Eosinophils # (A) 0.2 k/uL (0-0.7); Eosinophils % (A) 1 %; HCT 50.2 % (39.0-53.0); HGB 18.1 gm/dL (13.0-17.5); Lymphocytes # (A) 1.3 k/uL (1.0-4.8); Lymphocytes % (A) 10 %; MCH 34.6 pg (25.0-35.0); MCV 96.1 fL (80.0-100.0); Mean Platelet Volume 9.1; Monocytes # (A) 1.2 k/uL (0-1.0); Monocytes % (A) 10 %; Neutrophils # (A) 9.5 k/uL (1.3-7.7); Neutrophils % (A) 76 %; Platelet Count 391 k/uL (150-450); RBC 5.22 m/uL (4.30-5.90); RDW 15.8 % (11.5-15.5); WBC 12.5 k/uL (3.8-10.6)
[2023-06-05 12:28] LABS: INR 1.3 (<1.2); Partial Thromboplastin Time 25.8 sec (22.0-30.0); Prothrombin Time 13.7 sec (10.0-12.5)
[2023-06-05 16:26] LABS: Glucose,Whole Blood 104 mg/dL (70-110)
[2023-06-05] MEDS: WARFARIN 7.5 MG TAB PO ONE (16:55)
--- NOTE | 2023-06-05 17:28 | P.PN ---
Subjective Progress Note Date: 06/05/23 Hospital course: Patient is a pleasant 62-year-old male with a past medical history of atrial fibrillation on anticoagulation with Coumadin, hypertension, hyperlipidemia, GERD with Barton's esophagus, asthma, [id number]-[id number] diabetes mellitus, and type II chronic kidney disease. He was transferred to our facility from [facility] after presenting there with a 4-day history of progressively worsening shortness of breath and nonproductive cough. He was reportedly found to be in atrial fibrillation with RVR and was given a Cardizem drip followed by bolus. CT chest was completed and per documentation in chart revealed left lower lobe infiltrate. Patient was then started on antibiotics and transferred to our facility for higher level of care and evaluation. Upon arrival to our facility, vital signs completed and reviewed. Blood pressure 137/99, heart rate 126, respiratory rate 18, temp 98.2 F, and SpO2 of 98% on room air. EKG was completed showing atrial flutter with RVR at 132 bpm. Labs completed and reviewed. CBC showing polycythemia with an elevated hemoglobin of 18.0, WBC count of 19.0, and platelet count of 479. Coagulation profile showing subtherapeutic INR of 1.2. BMP showing hyponatremia with sodium of 133, hype rkalemia with potassium of 5.2, hypocarbia with bicarb of 19, and prerenal azotemia with BUN of 27 and creatinine of 1.00. Blood glucose was 111. Liver profile showing transaminitis with elevated AST of 129, ALT of 81, and alkaline phosphatase of 160. Troponin was negative at less than 0.012. Patient admitted under our services with consultation to cardiology. Physical exam: Vital signs reviewed and stable. General: Nontoxic, no distress and appears stated age. Derm: Skin warm and dry, normal coloration for ethnicity. Head: Atraumatic, normocephalic and symmetric. Eyes: EOMs intact, no lid lag, and anicteric sclera Mouth: no lip lesions, mucus membranes moist Cardiovascular: regular rate and rhythm with normal S1S2, no murmur, positive posterior tibial pulses bilaterally, and cap refill < 2 seconds. Lungs: Respirations even, regular, and unlabored on room air. Lungs CTA bilaterally, no rhonchi, no rales, no wheezing, and no accessory muscle usage. Abdominal: soft, nontender to palpation, no guarding, no appreciable organomegaly Ext: ROM intact. No gross muscle atrophy, no edema, no contractures Neuro: Speech clear, face symmetrical and CN II-XII grossly intact with no noted focal neuro deficits Psych: Alert and oriented to person, place, time, and situation. Appropriate and pleasant affect. Assessment and Plan of Care: Atrial fibrillation with RVR Subtherapeutic INR Hyperkalemia Transaminitis, possibly secondary to right-sided heart failure Hypertension Hyperlipidemia -Continue Cardizem infusion for goal ventricular rate 80-100 -Subtherapeutic INR likely secondary to holding of Coumadin for dental procedure, extraction of 6 teeth last week. -Patient placed on low intensity heparin infusion to bridge Coumadin until INR is therapeutic. -Patient to remain on continuous telemetry monitoring. -Echocardiogram completed and pending results. -Cardiology consulted, reviewed documentation in chart. -Hold lisinopril and Aldactone secondary to hyperkalemia. -Repeat BMP and obtain a baseline BNP. -Repeat morning CMP to trend and closely monitor liver function as no baseline labs available for comparison GERD with history of Barton's esophagus -Continue Protonix 40 mg IVP daily. [id number] diabetes mellitus -Glycemic protocol with NovoLog sliding scale. Obstructive sleep apnea CPAP dependent Continue use of home CPAP nightly and while napping. CODE STATUS: Full code DVT prophylaxis: Heparin infusion, bridging Coumadin until therapeutic Anticipated discharge date: Clinical course to determine Anticipated discharge place: Clinical course to determine Patient was seen independently by Nurse Pracitioner. This document was prepared using [employer] dictation software. Please allow for errors in project control analyst, while rare they do occur. I reviewed the documentation as provided by the LINCOLN above, who is the original author of this note. I agree with the documented assessment and plan, with the following changes: none Objective - Vital Signs Vital signs: Vital Signs Temp 97.4 F L 06/05/23 08:04 Pulse 98 06/05/23 08:04 Resp 20 06/05/23 08:04 BP 128/81 06/05/23 08:04 Pulse Ox 94 L 06/05/23 08:04 FiO2 Intake & Output 06/04/23 06/05/23 06/05/23 18:59 06:59 18:59 Intake Total 93.333 Balance 93.333 Weight 122.47 kg Intake: Intake, IV Titration 93.333 Amount Diltiazem 125 mg In 93.333 Sodium Chloride 0.9% 100 ml @ 10 MG/HR 10 mls/hr IV .[id number] [facility] Rx#: [id number] Other: Voiding Method Urinal Urinal # Voids 1 - Labs CBC & Chem 7: 06/05/23 10:31 06/05/23 10:31 Labs: Abnormal Lab Results - Last 24 Hours (Table) 06/04/23 06/04/23 06/04/23 Range/Units 23:09 23:09 23:09 WBC 19.0 H (3.8-10.6) k/uL Hgb 18.0 H (13.0-17.5) gm/dL Hct 54.2 H (39.0-53.0) % Plt Count 479 H (150-450) k/uL Neutrophils # 16.0 H (1.3-7.7) k/uL Monocytes # 1.3 H (0-1.0) k/uL PT 12.9 H (10.0-12.5) sec INR 1.2 H (<1.2) Sodium 133 L (137-145) mmol/L Potassium 5.2 H (3.5-5.1) mmol/L Carbon Dioxide 19 L (22-30) mmol/L BUN 27 H (9-20) mg/dL Glucose 111 H (74-99) mg/dL POC Glucose (mg/dL) (70-110) mg/dL AST 129 H (17-59) U/L ALT 81 H (4-49) U/L Alkaline Phosphatase 160 H (38-126) U/L Total Protein 6.0 L (6.3-8.2) g/dL Albumin 3.1 L (3.5-5.0) g/dL 06/05/23 06/05/23 Range/Units 01:30 06:07 WBC (3.8-10.6) k/uL Hgb (13.0-17.5) gm/dL Hct (39.0-53.0) % Plt Count (150-450) k/uL Neutrophils # (1.3-7.7) k/uL Monocytes # (0-1.0) k/uL PT (10.0-12.5) sec INR (<1.2) Sodium (137-145) mmol/L Potassium (3.5-5.1) mmol/L Carbon Dioxide (22-30) mmol/L BUN (9-20) mg/dL Glucose (74-99) mg/dL POC Glucose (mg/dL) 116 H 123 H (70-110) mg/dL AST (17-59) U/L ALT (4-49) U/L Alkaline Phosphatase (38-126) U/L Total Protein (6.3-8.2) g/dL Albumin (3.5-5.0) g/dL
[2023-06-05] MEDS: PANTOPRAZOLE 40 MG/10 ML VIAL IVP SCH (17:42)
[2023-06-05 17:59] LABS: African American GFR (CKD) >90 (>60 ml/min/1.73 sqM); Anion Gap 14 mmol/L; Blood Urea Nitrogen 29 mg/dL (9-20); Calcium 8.9 mg/dL (8.4-10.2); Carbon Dioxide 20 mmol/L (22-30); Chloride 101 mmol/L (98-107); Glucose 103 mg/dL (74-99); Non-African American GFR(CKD) >90 (>60 ml/min/1.73 sqM); Sodium 135 mmol/L (137-145)
[2023-06-05 18:05] LABS: Potassium 5.5 mmol/L (3.5-5.1)
[2023-06-05 18:08] LABS: NT-Pro-B-Type Natriuretic Pept 1250 pg/mL
[2023-06-05] MEDS: SODIUM ZIRCONIUM CYCLOSILICATE 10 GM PACKET PO ONE (18:50)
[2023-06-05 20:08] LABS: Glucose,Whole Blood 138 mg/dL (70-110)
[2023-06-06 06:03] LABS: Glucose,Whole Blood 113 mg/dL (70-110)
[2023-06-06 08:19] LABS: Basophils # (A) 0.1 k/uL (0-0.2); Basophils % (A) 1 %; Eosinophils # (A) 0.1 k/uL (0-0.7); Eosinophils % (A) 1 %; HCT 52.3 % (39.0-53.0); HGB 16.7 gm/dL (13.0-17.5); Lymphocytes # (A) 1.3 k/uL (1.0-4.8); Lymphocytes % (A) 12 %; MCH 30.8 pg (25.0-35.0); MCV 96.4 fL (80.0-100.0); Mean Platelet Volume 8.9; Monocytes # (A) 0.5 k/uL (0-1.0); Monocytes % (A) 5 %; Neutrophils # (A) 8.7 k/uL (1.3-7.7); Neutrophils % (A) 80 %; Platelet Count 451 k/uL (150-450); RBC 5.43 m/uL (4.30-5.90); RDW 15.7 % (11.5-15.5); WBC 10.9 k/uL (3.8-10.6)
[2023-06-06 08:26] LABS: INR 1.3 (<1.2); Prothrombin Time 13.5 sec (10.0-12.5)
[2023-06-06 08:41] LABS: African American GFR (CKD) >90 (>60 ml/min/1.73 sqM); Anion Gap 13 mmol/L; Blood Urea Nitrogen 29 mg/dL (9-20); Calcium 8.9 mg/dL (8.4-10.2); Carbon Dioxide 20 mmol/L (22-30); Chloride 102 mmol/L (98-107); Glucose 116 mg/dL (74-99); Non-African American GFR(CKD) >90 (>60 ml/min/1.73 sqM); Potassium 4.8 mmol/L (3.5-5.1); Sodium 135 mmol/L (137-145)
[2023-06-06 11:33] LABS: Glucose,Whole Blood 120 mg/dL (70-110)
--- NOTE | 2023-06-06 12:13 | P.PN ---
Subjective Progress Note Date: 06/06/23 Hospital course: Patient is a pleasant 62-year-old male with a past medical history of atrial fibrillation on anticoagulation with Coumadin, hypertension, hyperlipidemia, GERD with Barton's esophagus, asthma, [id number] diabetes mellitus, and type II chronic kidney disease. He was transferred to our facility from [facility] after presenting there with a 4-day history of progress ively worsening shortness of breath and nonproductive cough. He was reportedly found to be in atrial fibrillation with RVR and was given a Cardizem drip followed by bolus. CT chest was completed and per documentation in chart revealed left lower lobe infiltrate. Patient was then started on antibiotics and transferred to our facility for higher level of care and evaluation. Upon arrival to our facility, vital signs completed and reviewed. Blood pressure 137/99, heart rate 126, respiratory rate 18, temp 98.2 F, and SpO2 of 98% on room air. EKG was completed showing atrial flutter with RVR at 132 bpm. Labs completed and reviewed. CBC showing polycythemia with an elevated hemoglobin of 18.0, WBC count of 19.0, and platelet count of 479. Coagulation profile showing subtherapeutic INR of 1.2. BMP showing hyponatremia with sodium of 133, hyperkalemia with potassium of 5.2, hypocarbia with bicarb of 19, and prerenal azotemia with BUN of 27 and creatinine of 1.00. Blood glucose was 111. Liver profile showing transaminitis with elevated AST of 129, ALT of 81, and alkaline phosphatase of 160. Troponin was negative at less than 0.012. Patient admitted under our services with consultation to cardiology. Currently on Cardizem drip and heparin drip. Now rate controlled. Patient also had community-acquired pneumonia, on IV antibiotics. Subjective: Patient seen and examined at bedside. No acute events overnight. Complaining of shortness of breath, slightly improved. Denies any significant cough. Denies any palpitations or chest pain. Physical exam: Vital signs reviewed and stable. General: Nontoxic, no distress and appears stated age. Derm: Skin warm and dry, normal coloration for ethnicity. Head: Atraumatic, normocephalic and symmetric. Eyes: EOMs intact, no lid lag, and anicteric sclera Mouth: no lip lesions, mucus membranes moist Cardiovascular: regular rate and rhythm with normal S1S2, no murmur, positive posterior tibial pulses bilaterally, and cap refill < 2 seconds. Lungs: Respirations even, regular, and unlabored on room air. Lungs CTA nelida aterally, no rhonchi, no rales, no wheezing, and no accessory muscle usage. Abdominal: soft, nontender to palpation, no guarding, no appreciable organomegaly Ext: ROM intact. No gross muscle atrophy, no edema, no contractures Neuro: Speech clear, face symmetrical and CN II-XII grossly intact with no noted focal neuro deficits Psych: Alert and oriented to person, place, time, and situation. Appropriate and pleasant affect. Assessment and Plan of Care: Patient is severely ill, needs close monitoring. Prognosis guarded. Sepsis secondary to community-acquired pneumonia Continue oral azithromycin 500 daily, IV Rocephin [address] scan showed left lower lobe infiltrate and bilateral small pleural effusion Not requiring any oxygen Atrial fibrillation with RVR, now rate controlled Subtherapeutic INR Hyperkalemia, resolved Transaminitis, possibly secondary to right-sided heart failure Hypertension Hyperlipidemia -Patient continues to remain on Cardizem drip, consider discontinuing, also on metoprolol 100 twice daily -Subtherapeutic INR likely secondary to holding of Coumadin for dental procedure, extraction of 6 teeth last week. -Patient placed on low intensity heparin infusion to bridge Coumadin until INR is therapeutic. -Patient to remain on continuous telemetry monitoring. -Echocardiogram results pending -Cardiology following -Hold lisinopril and Aldactone secondary to hyperkalemia and low normal blood pressure GERD with history of Barton's esophagus -Continue Protonix 40 mg IVP daily. [id number] diabetes mellitus -Glycemic protocol with NovoLog sliding scale. Monitor for hypoglycemia On Farxiga 10 daily Obstructive sleep apnea CPAP dependent Continue use of home CPAP nightly and while napping. CODE STATUS: Full code DVT prophylaxis: Heparin infusion, bridging Coumadin until therapeutic Anticipated discharge date: Clinical course to determine Anticipated discharge place: Clinical course to determine Objective - Vital Signs Vital signs: Vital Signs Temp 97.6 F 06/06/23 11:19 Pulse 66 06/06/23 11:19 Resp 18 06/06/23 11:19 BP 101/63 06/06/23 11:19 Pulse Ox 98 06/06/23 11:19 FiO2 Intake & Output 0206/06/23 06/06/23 18:59 06:59 18:59 Intake Total 1303.333 168.833 381.310 Output Total 600 300 Balance 703.333 168.833 81.310 Intake: IV 10 20 10 Invasive Line 1 10 20 10 Intake, IV Titration 93.333 148.833 191.310 Amount Diltiazem 125 mg In 93.333 Sodium Chloride 0.9% 100 ml @ 10 MG/HR 10 mls/hr IV .[id number] ADRIANA Rx#: [id number] Diltiazem 125 mg In 119.333 Sodium Chloride 0.9% 100 ml @ 5 MG/HR 5 mls/hr IV .Q24H ADRIANA Rx#:[id number] Heparin Sod,Pork in 0.45% 148.833 71.977 NaCl 25,000 unit In 0.45 % NaCl 1 250ml.bag @ 8. 165 UNITS/KG/HR 10 mls/hr IV .Q24H ADRIANA Rx#: [id number] Oral 1200 180 Output: Urine 600 300 Other: Voiding Method Urinal Urinal Urinal # Voids 1 1 - Labs CBC & Chem 7: 06/06/23 07:13 06/06/23 07:13 Labs: Abnormal Lab Results - Last 24 Hours (Table) 06/05/23 06/05/23 06/05/23 Range/Units 10:31 10:31 10:31 WBC 12.5 H (3.8-10.6) k/uL Hgb 18.1 H (13.0-17.5) gm/dL RDW 15.8 H (11.5-15.5) % Plt Count (150-450) k/uL Neutrophils # 9.5 H (1.3-7.7) k/uL Monocytes # 1.2 H (0-1.0) k/uL PT 13.7 H (10.0-12.5) sec INR 1.3 H (<1.2) APTT (22.0-30.0) sec Sodium 135 L (137-145) mmol/L Potassium 5.5 H (3.5-5.1) mmol/L Carbon Dioxide 20 L (22-30) mmol/L BUN 29 H (9-20) mg/dL Glucose 103 H (74-99) mg/dL POC Glucose (mg/dL) (70-110) mg/dL 06/05/23 06/05/23 06/06/23 Range/Units 20:06 22:50 06:02 WBC (3.8-10.6) k/uL Hgb (13.0-17.5) gm/dL RDW (11.5-15.5) % Plt Count (150-450) k/uL Neutrophils # (1.3-7.7) k/uL Monocytes # (0-1.0) k/uL PT (10.0-12.5) sec INR (<1.2) APTT 85.2 H (22.0-30.0) sec Sodium (137-145) mmol/L Potassium (3.5-5.1) mmol/L Carbon Dioxide (22-30) mmol/L BUN (9-20) mg/dL Glucose (74-99) mg/dL POC Glucose (mg/dL) 138 H 113 H (70-110) mg/dL 06/06/23 06/06/23 06/06/23 Range/Units 07:13 07:13 07:13 WBC 10.9 H (3.8-10.6) k/uL Hgb (13.0-17.5) gm/dL RDW 15.7 H (11.5-15.5) % Plt Count 451 H (150-450) k/uL Neutrophils # 8.7 H (1.3-7.7) k/uL Monocytes # (0-1.0) k/uL PT 13.5 H (10.0-12.5) sec INR 1.3 H (<1.2) APTT (22.0-30.0) sec Sodium 135 L (137-145) mmol/L Potassium (3.5-5.1) mmol/L Carbon Dioxide 20 L (22-30) mmol/L BUN 29 H (9-20) mg/dL Glucose 116 H (74-99) mg/dL POC Glucose (mg/dL) (70-110) mg/dL 06/06/23 Range/Units 11:30 WBC (3.8-10.6) k/uL Hgb (13.0-17.5) gm/dL RDW (11.5-15.5) % Plt Count (150-450) k/uL Neutrophils # (1.3-7.7) k/uL Monocytes # (0-1.0) k/uL PT (10.0-12.5) sec INR (<1.2) APTT (22.0-30.0) sec Sodium (137-145) mmol/L Potassium (3.5-5.1) mmol/L Carbon Dioxide (22-30) mmol/L BUN (9-20) mg/dL Glucose (74-99) mg/dL POC Glucose (mg/dL) 120 H (70-110) mg/dL
--- NOTE | 2023-06-06 13:05 | P.PN ---
Subjective Progress Note Date: 06/06/23 This is Kevin Kaiser NP, I'm dictating on behalf of Dr. Epstein's H&P and A&P. Patient was interviewed and examined. Patient is a pleasant 62-year-old male who presented to the hospital with chest pain and atrial fibrillation with RVR. Patient reports he still experiencing some occasional chest pain at times. He otherwise denies palpitations. Overall he states that he is feeling okay today. GENERAL: Well-appearing, well-nourished and in no acute distress. NECK: Supple without JVD or thyromegaly. LUNGS: Breath sounds clear to auscultation bilaterally. Respiration equal and unlabored. No wheezes, rales or rhonchi. HEART: Regular rate and rhythm without murmurs, rubs or gallops. S1 and S2 h eard. EXTREMITIES: Normal range of motion, no edema. No clubbing or cyanosis. Peripheral pulses intact and strong. VITALS: Temp 97.4, pulse 103, respirations 22, blood pressure 108/70, O2 saturation 97% on room air TELEMETRY: Atrial fibrillation with controlled ventricular response LABS: White count 10.9, hemoglobin 16.7, platelets 451, sodium 135, potassium 4.8, BUN 29, creatinine 0.79, calcium 8.9 IMPRESSION: 1. Persistent atrial fibrillation with RVR 2. Shortness of breath 3. Pneumonia 4. Leukocytosis 5. Subtherapeutic INR, secondary to recent dental procedure and with holding of Coumadin 6. Recent dental extraction x 6 teeth 7. Hyperlipidemia 8. GERD PLAN: Awaiting results of 2D echo. Continue IV diltiazem. Continue to give metoprolol. Will monitor patient another day to determine if any adjustments need to be made to medications. Patient's accelerated heart rate is likely secondary to his infectious process. Further recommendations based on patient's clinical course. Objective - Vital Signs Vital signs: Vital Signs Temp 97.6 F 06/06/23 11:19 Pulse 66 06/06/23 11:19 Resp 18 06/06/23 11:19 BP 101/63 06/06/23 11:19 Pulse Ox 98 06/06/23 11:19 FiO2 Intake & Output 06/05/23 06/06/23 06/06/23 18:59 06:59 18:59 Intake Total 1303.333 168.833 561.310 Output Total 600 300 Balance 703.333 168.833 261.310 Intake: IV 10 20 10 Invasive Line 1 10 20 10 Intake, IV Titration 93.333 148.833 191.310 Amount Diltiazem 125 mg In 93.333 Sodium Chloride 0.9% 100 ml @ 10 MG/HR 10 mls/hr IV .[id number] [facility] Rx#: [id number] Diltiazem 125 mg In 119.333 Sodium Chloride 0.9% 100 ml @ 5 MG/HR 5 mls/hr IV .Q24H [facility] Rx#:[id number] Heparin Sod,Pork in 0.45% 148.833 71.977 NaCl 25,000 unit In 0.45 % NaCl 1 250ml.bag @ 8. 165 UNITS/KG/HR 10 mls/hr IV .Q24H [facility] Rx#: [id number] Oral 1200 360 Output: Urine 600 300 Other: Voiding Method Urinal Urinal Urinal # Voids 1 1 - Labs CBC & Chem 7: 06/06/23 07:13 06/06/23 07:13 Labs: Abnormal Lab Results - Last 24 Hours (Table) 06/05/23 06/05/23 06/05/23 Range/Units 10:31 20:06 22:50 WBC (3.8-10.6) k/uL RDW (11.5-15.5) % Plt Count (150-450) k/uL Neutrophils # (1.3-7.7) k/uL PT (10.0-12.5) sec INR (<1.2) APTT 85.2 H (22.0-30.0) sec Sodium 135 L (137-145) mmol/L Potassium 5.5 H (3.5-5.1) mmol/L Carbon Dioxide 20 L (22-30) mmol/L BUN 29 H (9-20) mg/dL Glucose 103 H (74-99) mg/dL POC Glucose (mg/dL) 138 H (70-110) mg/dL 06/06/23 06/06/23 06/06/23 Range/Units 06:02 07:13 07:13 WBC 10.9 H (3.8-10.6) k/uL RDW 15.7 H (11.5-15.5) % Plt Count 451 H (150-450) k/uL Neutrophils # 8.7 H (1.3-7.7) k/uL PT (10.0-12.5) sec INR (<1.2) APTT (22.0-30.0) sec Sodium 135 L (137-145) mmol/L Potassium (3.5-5.1) mmol/L Carbon Dioxide 20 L (22-30) mmol/L BUN 29 H (9-20) mg/dL Glucose 116 H (74-99) mg/dL POC Glucose (mg/dL) 113 H (70-110) mg/dL 06/06/23 06/06/23 Range/Units 07:13 11:30 WBC (3.8-10.6) k/uL RDW (11.5-15.5) % Plt Count (150-450) k/uL Neutrophils # (1.3-7.7) k/uL PT 13.5 H (10.0-12.5) sec INR 1.3 H (<1.2) APTT (22.0-30.0) sec Sodium (137-145) mmol/L Potassium (3.5-5.1) mmol/L Carbon Dioxide (22-30) mmol/L BUN (9-20) mg/dL Glucose (74-99) mg/dL POC Glucose (mg/dL) 120 H (70-110) mg/dL
--- NOTE | 2023-06-06 13:37 | CA ---
Transthoracic Echo Report Name: John Arrieta Age: 62 Gender: M : 1960 Exam Date: 06/05/2023 08:32 Exam Location: [place] [facility] Ht (in): 66 Wt (lb): 270 Ordering Physician: Alison Francois DO Attending/Referring Phys: Bunghole Borer Orion Williamson RDCS Procedure CPT: Indications: pericardial effusion Cardiac Hx: Technical Quality: Very technically difficult study Contrast 1: Definity Total Dose (mL): 2 Contrast 2: Total Dose (mL): MEASUREMENTS (Male / Female) Normal Values 2D ECHO LV Diastolic Diameter PLAX 3.6 cm 4.2 - 5.9 / 3.9 - 5.3 cm LV Systolic Diameter PLAX 2.9 cm IVS Diastolic Thickness 1.1 cm 0.6 - 1.0 / 0.6 - 0.9 cm LVPW Diastolic Thickness 0.9 cm 0.6 - 1.0 / 0.6 - 0.9 cm LV Relative Wall Thickness 0.6 LVOT Diameter 2.0 cm Aortic Root Diameter 3.2 cm LA Systolic Diameter LX 4.3 cm 3.0 - 4.0 / 2.7 - 3.8 cm LA Volume 44.6 cm??? 18 - 58 / 22 - 52 cm??? LA Volume Index 18.2 cm???/m??? 16 - 28 cm???/m??? DOPPLER AV Peak Velocity 104.2 cm/s AV Peak Gradient 4.3 mmHg AV Mean Velocity 76.3 cm/s AV Mean Gradient 2.5 mmHg AV Velocity Time Integral 14.4 cm LVOT Peak Velocity 83.3 cm/s LVOT Peak Gradient 2.8 mmHg LVOT Velocity Time Integral 12.5 cm LVOT Stroke Volume 39.9 cm??? LVOT Stroke Volume Index 17.6 ml/m??? LVOT Cardiac Index 1756.8 cm???/min???m??? AV Area Cont Eq vti 2.8 cm??? AV Area Cont Eq pk 2.5 cm??? MV Area PHT 7.5 cm??? Mitral E Point Velocity 52.8 cm/s Mitral A Point Velocity 68.8 cm/s Mitral E to A Ratio 0.8 MV Deceleration Time 101.7 ms PV Peak Velocity 68.1 cm/s PV Peak Gradient 1.9 mmHg FINDINGS Left Ventricle Mildly increased septal wall thickness. Left ventricular ejection fraction is estimated at 50-55 %. Normal left ventricular wall motion. Right Ventricle Normal right ventricular size and function. Unable to estimate the right ventricular systolic pressure. Right Atrium Normal right atrial size. Left Atrium Mildly increased left atrial diameter. Mitral Valve Trace mitral regurgitation. Aortic Valve Aortic valve not well visualized. Tricuspid Valve Trace tricuspid regurgitation. Pulmonic Valve Pulmonic valve not well visualized. Pericardium Small pericardial effusion. Aorta Normal size aortic root. CONCLUSIONS LVH with preserved systolic function Patient tachycardic Previewed by: Dr. Celso Epstein MD (Electronically Signed) Final Date: 06 June 2023 13:36
[2023-06-06 16:29] LABS: Glucose,Whole Blood 75 mg/dL (70-110)
[2023-06-06] MEDS: WARFARIN 7.5 MG TAB PO ONE (17:13)
[2023-06-06 20:08] LABS: Glucose,Whole Blood 119 mg/dL (70-110)
[2023-06-06] MEDS: HEPARIN SODIUM 1,000 UN/ML (10ML VL) IV PRN (22:33)
[2023-06-07 04:40] LABS: Basophils # (A) 0.1 k/uL (0-0.2); Basophils % (A) 1 %; Eosinophils # (A) 0.1 k/uL (0-0.7); Eosinophils % (A) 1 %; HCT 50.2 % (39.0-53.0); HGB 16.1 gm/dL (13.0-17.5); Lymphocytes # (A) 1.9 k/uL (1.0-4.8); Lymphocytes % (A) 18 %; MCH 31.3 pg (25.0-35.0); MCV 97.8 fL (80.0-100.0); Mean Platelet Volume 8.1; Monocytes # (A) 0.8 k/uL (0-1.0); Monocytes % (A) 8 %; Neutrophils # (A) 7.5 k/uL (1.3-7.7); Neutrophils % (A) 71 %; Platelet Count 413 k/uL (150-450); RBC 5.13 m/uL (4.30-5.90); RDW 15.5 % (11.5-15.5); WBC 10.6 k/uL (3.8-10.6)
[2023-06-07 04:50] LABS: INR 1.5 (<1.2); Prothrombin Time 15.7 sec (10.0-12.5)
[2023-06-07 04:59] LABS: ALT 156 U/L (4-49); AST 126 U/L (17-59); African American GFR (CKD) >90 (>60 ml/min/1.73 sqM); Albumin 2.7 g/dL (3.5-5.0); Alkaline Phosphatase 124 U/L (38-126); Anion Gap 4 mmol/L; Blood Urea Nitrogen 25 mg/dL (9-20); Calcium 8.8 mg/dL (8.4-10.2); Carbon Dioxide 30 mmol/L (22-30); Chloride 102 mmol/L (98-107); Glucose 122 mg/dL (74-99); Magnesium 1.8 mg/dL (1.6-2.3); Non-African American GFR(CKD) 87 (>60 ml/min/1.73 sqM); Potassium 4.8 mmol/L (3.5-5.1); Sodium 136 mmol/L (137-145); Total Bilirubin 0.5 mg/dL (0.2-1.3); Total Protein 5.6 g/dL (6.3-8.2)
[2023-06-07 06:13] LABS: Glucose,Whole Blood 103 mg/dL (70-110)
--- NOTE | 2023-06-07 10:38 | P.PN ---
Subjective Progress Note Date: 06/07/23 This is Kevin Kaiser NP, I'm dictating on behalf of Dr. Epstein's H&P and A&P. Patient was interviewed and examined. Patient is a pleasant 62-year-old male who presented to hospital with A-fib with RVR. Patient reports he is feeling much better today. Patient's heart rate has significantly improved with the addition of metoprolol 100 mg twice daily as well as IV diltiazem. He has no complaints of chest pain or heart palpitations today. GENERAL: Well-appearing, well-nourished and in no acute distress. NECK: Supple without JVD or thyromegaly. LUNGS: Breath sounds clear to auscultation bilaterally. Respiration equal and unlabored. No wheezes, rales or rhonchi. HEART: Regular rate and rhythm without murmurs, rubs or gallops. S1 and S2 heard. EXTREMITIES: Normal range of motion, no edema. No clubbing or cyanosis. Peripheral pulses intact and strong. VITALS: Temp 97.6, pulse 86, respirations 20, blood pressure 118/75, O2 saturation 94% on room air TELEMETRY: Atrial fibrillation with controlled ventricular response LABS: White count 10.6, hemoglobin 16.1, platelets 413, sodium 136, potassium 4.8, BUN 25, creatinine 0.94, magnesium 1.8 IMPRESSION: 1. Persistent atrial fibrillation with RVR 2. Shortness of breath 3. Pneumonia 4. Leukocytosis 5. Subtherapeutic INR, secondary to recent dental procedure and with holding of Coumadin 6. Recent dental extraction x 6 teeth 7. Hyperlipidemia 8. GERD PLAN: Discontinue IV diltiazem. Monitor heart rate throughout the day. If heart rate increases again, will adjust metoprolol. Further recommendations based on patient's clinical course. Objective - Vital Signs Vital signs: Vital Signs Temp 97.6 F 06/07/23 08:27 Pulse 86 06/07/23 08:27 Resp 20 06/07/23 08:27 BP 118/75 06/07/23 08:27 Pulse Ox 94 L 06/07/23 08:27 FiO2 Intake & Output 06/06/23 06/07/23 06/07/23 18:59 06:59 18:59 Intake Total 823.058 160.525 357 Output Total 1050 900 925 Balance -226.942 -739.475 -568 Intake: IV 10 10 Invasive Line 1 10 10 Intake, IV Titration 273.058 160.525 167 Amount Diltiazem 125 mg In 119.333 117 Sodium Chloride 0.9% 100 ml @ 5 MG/HR 5 mls/hr IV .Q24H [facility] Rx#:[id number] Heparin Sod,Pork in 0.45% 153.725 160.525 NaCl 25,000 unit In 0.45 % NaCl 1 250ml.bag @ 8. 165 UNITS/KG/HR 10 mls/hr IV .Q24H [facility] Rx#: [id number] cefTRIAXone 2 gm In 50 Sodium Chloride 0.9% 50 ml @ 100 mls/hr IVPB Q24H [facility] Rx#:[id number] Oral 540 180 Output: Urine 1050 900 925 Other: Voiding Method Urinal Urinal Urinal # Voids 2 1 1 - Labs CBC & Chem 7: 06/07/23 04:20 06/07/23 04:20 Labs: Abnormal Lab Results - Last 24 Hours (Table) 06/06/23 06/06/23 06/06/23 Range/Units 07:13 11:30 15:34 PT (10.0-12.5) sec INR (<1.2) APTT 30.7 H (22.0-30.0) sec Sodium (137-145) mmol/L BUN (9-20) mg/dL Glucose (74-99) mg/dL POC Glucose (mg/dL) 120 H (70-110) mg/dL Hemoglobin A1c 8.2 H (<=6.0) % AST (17-59) U/L ALT (4-49) U/L Total Protein (6.3-8.2) g/dL Albumin (3.5-5.0) g/dL 06/06/23 06/06/23 06/07/23 Range/Units 20:06 21:46 04:20 PT (10.0-12.5) sec INR (<1.2) APTT 37.6 H (22.0-30.0) sec Sodium 136 L (137-145) mmol/L BUN 25 H (9-20) mg/dL Glucose 122 H (74-99) mg/dL POC Glucose (mg/dL) 119 H (70-110) mg/dL Hemoglobin A1c (<=6.0) % AST 126 H (17-59) U/L ALT 156 H (4-49) U/L Total Protein 5.6 L (6.3-8.2) g/dL Albumin 2.7 L (3.5-5.0) g/dL 06/07/23 06/07/23 Range/Units 04:20 04:20 PT 15.7 H (10.0-12.5) sec INR 1.5 H (<1.2) APTT 60.7 H (22.0-30.0) sec Sodium (137-145) mmol/L BUN (9-20) mg/dL Glucose (74-99) mg/dL POC Glucose (mg/dL) (70-110) mg/dL Hemoglobin A1c (<=6.0) % AST (17-59) U/L ALT (4-49) U/L Total Protein (6.3-8.2) g/dL Albumin (3.5-5.0) g/dL
[2023-06-07 11:32] LABS: Glucose,Whole Blood 122 mg/dL (70-110)
--- NOTE | 2023-06-07 13:07 | P.PN ---
Subjective Progress Note Date: 06/07/23 Hospital course: Patient is a pleasant 62-year-old male with a past medical history of atrial fibrillation on anticoagulation with Coumadin, hypertension, hyperlipidemia, GERD with Barton's esophagus, asthma, iyr-hdhqgru-tiosdadxh diabetes mellitus, and type II chronic kidney disease. He was transferred to our facility from [facility] after presenting there with a 4-day history of progress ively worsening shortness of breath and nonproductive cough. He was reportedly found to be in atrial fibrillation with RVR and was given a Cardizem drip followed by bolus. CT chest was completed and per documentation in chart revealed left lower lobe infiltrate. Patient was then started on antibiotics and transferred to our facility for higher level of care and evaluation. Upon arrival to our facility, vital signs completed and reviewed. Blood pressure 137/99, heart rate 126, respiratory rate 18, temp 98.2 F, and SpO2 of 98% on room air. EKG was completed showing atrial flutter with RVR at 132 bpm. Labs completed and reviewed. CBC showing polycythemia with an elevated hemoglobin of 18.0, WBC count of 19.0, and platelet count of 479. Coagulation profile showing subtherapeutic INR of 1.2. BMP showing hyponatremia with sodium of 133, hyperkalemia with potassium of 5.2, hypocarbia with bicarb of 19, and prerenal azotemia with BUN of 27 and creatinine of 1.00. Blood glucose was 111. Liver profile showing transaminitis with elevated AST of 129, ALT of 81, and alkaline phosphatase of 160. Troponin was negative at less than 0.012. Patient admitted under our services with consultation to cardiology. Cardizem drip discontinued, remains on heparin drip. Now rate controlled. Patient also has community- acquired pneumonia, on IV antibiotics. Subjective: Patient seen and examined at bedside. No acute events overnight. Complaining of shortness of breath, slightly improved. Denies any significant cough. Denies any palpitations or chest pain. Physical exam: Vital signs reviewed and stable. General: Nontoxic, no distress and appears stated age. Derm: Skin warm and dry, normal coloration for ethnicity. Head: Atraumatic, normocephalic and symmetric. Eyes: EOMs intact, no lid lag, and anicteric sclera Mouth: no lip lesions, mucus membranes moist Cardiovascular: regular rate and rhythm with normal S1S2, no murmur, positive posterior tibial pulses bilaterally, and cap refill < 2 seconds. Lungs: Respirations even, regular, and unlabored on room air. Lungs CTA bilaterally, no rhonchi, no rales, no wheezing, and no accessory muscle usage. Abdominal: soft, nontender to palpation, no guarding, no appreciable organomegaly Ext: ROM intact. No gross muscle atrophy, no edema, no contractures Neuro: Speech clear, face symmetrical and CN II-XII grossly intact with no noted focal neuro deficits Psych: Alert and oriented to person, place, time, and situation. Appropriate and pleasant affect. Data reviewed: Hemoglobin 16.1, INR 1.5, creatinine 0.94, blood sugars range between 10 4-1 22, AST 126, ALT 156 Echocardiogram shows LVH with preserved systolic function. Assessment and Plan of Care: Patient is severely ill, needs close monitoring. Prognosis guarded. Sepsis secondary to community-acquired pneumonia Continue IV Rocephin 2 g daily -Status post azithromycin Outside CT scan showed left lower lobe infiltrate and bilateral small pleural effusion Not requiring any oxygen Atrial fibrillation with RVR, now rate controlled Subtherapeutic INR Hyperkalemia, resolved Transaminitis, possibly secondary to right-sided heart failure, persistent, stable Hypertension Hyperlipidemia -Cardiology note reviewed, IV Cardizem discontinued, also on metoprolol 100 twice daily -Subtherapeutic INR likely secondary to holding of Coumadin for dental p rocedure, extraction of 6 teeth last week. -Patient placed on low intensity heparin infusion to bridge Coumadin until INR is therapeutic., Monitor for any signs of bleeding -Patient to remain on continuous telemetry monitoring. -Hold lisinopril and Aldactone secondary to hyperkalemia and low normal blood pressure GERD with history of Barton's esophagus -Continue Protonix 40 mg IVP daily. Zha-kroqwui-cuobarbfo diabetes mellitus -Glycemic protocol with NovoLog sliding scale. Monitor for hypoglycemia On Farxiga 10 daily Obstructive sleep apnea CPAP dependent Continue use of home CPAP nightly and while napping. CODE STATUS: Full code DVT prophylaxis: Heparin infusion, bridging Coumadin until therapeutic Anticipated discharge date: Likely tomorrow Anticipated discharge place: Home Objective - Vital Signs Vital signs: Vital Signs Temp 98.1 F 06/07/23 11:16 Pulse 75 06/07/23 11:16 Resp 16 06/07/23 11:16 BP 115/79 06/07/23 11:16 Pulse Ox 96 06/07/23 11:16 FiO2 Intake & Output 06/06/23 06/07/23 06/07/23 18:59 06:59 18:59 Intake Total 823.058 160.525 549.25 Output Total 1050 900 925 Balance -226.942 -739.475 -375.75 Intake: IV 10 10 Invasive Line 1 10 10 Intake, IV Titration 273.058 160.525 179.25 Amount Diltiazem 125 mg In 119.333 129.25 Sodium Chloride 0.9% 100 ml @ 5 MG/HR 5 mls/hr IV .Q24H [facility] Rx#:[id number] Heparin Sod,Pork in 0.45% 153.725 160.525 NaCl 25,000 unit In 0.45 % NaCl 1 250ml.bag @ 8. 165 UNITS/KG/HR 10 mls/hr IV .Q24H [facility] Rx#: [id number] cefTRIAXone 2 gm In 50 Sodium Chloride 0.9% 50 ml @ 100 mls/hr IVPB Q24H [facility] Rx#:[id number] Oral 540 360 Output: Urine 1050 900 925 Other: Voiding Method Urinal Urinal Urinal # Voids 2 1 1 - Labs CBC & Chem 7: 06/07/23 04:20 06/07/23 04:20 Labs: Abnormal Lab Results - Last 24 Hours (Table) 06/06/23 06/06/23 06/06/23 Range/Units 07:13 15:34 20:06 PT (10.0-12.5) sec INR (<1.2) APTT 30.7 H (22.0-30.0) sec Sodium (137-145) mmol/L BUN (9-20) mg/dL Glucose (74-99) mg/dL POC Glucose (mg/dL) 119 H (70-110) mg/dL Hemoglobin A1c 8.2 H (<=6.0) % AST (17-59) U/L ALT (4-49) U/L Total Protein (6.3-8.2) g/dL Albumin (3.5-5.0) g/dL 06/06/23 06/07/23 06/07/23 Range/Units 21:46 04:20 04:20 PT 15.7 H (10.0-12.5) sec INR 1.5 H (<1.2) APTT 37.6 H (22.0-30.0) sec Sodium 136 L (137-145) mmol/L BUN 25 H (9-20) mg/dL Glucose 122 H (74-99) mg/dL POC Glucose (mg/dL) (70-110) mg/dL Hemoglobin A1c (<=6.0) % AST 126 H (17-59) U/L ALT 156 H (4-49) U/L Total Protein 5.6 L (6.3-8.2) g/dL Albumin 2.7 L (3.5-5.0) g/dL 06/07/23 06/07/23 Range/Units 04:20 11:31 PT (10.0-12.5) sec INR (<1.2) APTT 60.7 H (22.0-30.0) sec Sodium (137-145) mmol/L BUN (9-20) mg/dL Glucose (74-99) mg/dL POC Glucose (mg/dL) 122 H (70-110) mg/dL Hemoglobin A1c (<=6.0) % AST (17-59) U/L ALT (4-49) U/L Total Protein (6.3-8.2) g/dL Albumin (3.5-5.0) g/dL
[2023-06-07 16:18] LABS: Glucose,Whole Blood 99 mg/dL (70-110)
[2023-06-07] MEDS: WARFARIN 7.5 MG TAB PO ONE (17:00)
[2023-06-07 20:27] LABS: Glucose,Whole Blood 111 mg/dL (70-110)
[2023-06-08 06:16] LABS: Glucose,Whole Blood 104 mg/dL (70-110)
[2023-06-08 09:28] LABS: INR 1.8 (<1.2); Prothrombin Time 18.6 sec (10.0-12.5)
--- NOTE | 2023-06-08 11:32 | P.PN ---
Subjective Progress Note Date: 06/08/23 Hospital course: Patient is a pleasant 62-year-old male with a past medical history of atrial fibrillation on anticoagulation with Coumadin, hypertension, hyperlipidemia, GERD with Barton's esophagus, asthma, vyq-qbbruti-ksxhkamge diabetes mellitus, and type II chronic kidney disease. He was transferred to our facility from [facility] after presenting there with a 4-day history of progressively worsening shortness of breath and nonproductive cough. He was reportedly found to be in atrial fibrillation with RVR and was given a Cardizem drip followed by bolus. CT chest was completed and per documentation in chart revealed left lower lobe infiltrate. Patient was then started on antibiotics and transferred to our facility for higher level of care and evaluation. Upon arrival to our facility, vital signs completed and reviewed. Blood pressure 137/99, heart rate 126, respiratory rate 18, temp 98.2 F, and SpO2 of 98% on room air. EKG was completed showing atrial flutter with RVR at 132 bpm. Labs completed and reviewed. CBC showing polycythemia with an elevated hemoglobin of 18.0, WBC count of 19.0, and platelet count of 479. Coagulation profile showing subtherapeutic INR of 1.2. BMP showing hyponatremia with sodium of 133, hyperkalemia with potassium of 5.2, hypocarbia with bicarb of 19, and prerenal azotemia with BUN of 27 and creatinine of 1.00. Blood glucose was 111. Liver profile showing transaminitis with elevated AST of 129, ALT of 81, and alkaline phosphatase of 160. Troponin was negative at less than 0.012. Patient admitted under our services with consultation to cardiology. Cardizem drip discontinued, remains on heparin drip. Now rate controlled. Patient also has community- acquired pneumonia, on IV antibiotics. Echocardiogram shows LVH with preserved systolic function. Subjective: Patient seen and examined at bedside. No acute events overnight. Patient reports that shortness of breath is improving but states that he feels generally weak as he has not been out of bed much this hospitalization. Discussed with patient we will consult PT/OT for evaluation and goal is to get out of bed with all meals today. Patient denies any other complaints including headache, lightheadedness, dizziness, chest pain, palpitations, cough or congestion, or experiencing any focal numbness/tingling/weakness in his extremities. Physical exam: Vital signs reviewed and stable. General: Nontoxic, no distress and appears stated age. Derm: Skin warm and dry, normal coloration for ethnicity. Head: Atraumatic, normocephalic and symmetric. Eyes: EOMs intact, no lid lag, and anicteric sclera Mouth: no lip lesions, mucus membranes moist Cardiovascular: regular rate and rhythm with normal S1S2, no murmur, positive posterior tibial pulses bilaterally, and cap refill < 2 seconds. Lungs: Respirations even, regular, and unlabored on room air. Lungs CTA bilaterally, no rhonchi, no rales, no wheezing, and no accessory muscle usage. Abdominal: soft, nontender to palpation, no guarding, no appreciable organomegaly Ext: ROM intact. No gross muscle atrophy, no edema, no contractures Neuro: Speech clear, face symmetrical and CN II-XII grossly intact with no noted focal neuro deficits Psych: Alert and oriented to person, place, time, and situation. Appropriate and pleasant affect. Assessment and Plan of Care: Patient is severely ill, needs close monitoring. Prognosis guarded. Sepsis secondary to community-acquired pneumonia -Completed 3-day course of azithromycin and patient to continue IV antibiotics with Rocephin 2 g daily -Outside CT scan showed left lower lobe infiltrate and bilateral small pleural effusion -Not requiring any oxygen -Order placed for consult to physical and Occupational Therapy to evaluate for weakness and assess for safe discharge plan as patient does live in a two-story home. Atrial fibrillation with RVR, now rate controlled Subtherapeutic INR Hyperkalemia, resolved Transaminitis, possibly secondary to right-sided heart failure, persistent, stable Hypertension Hyperlipidemia -Cardiology note reviewed, IV Cardizem discontinued, increased metoprolol to 100 twice daily -Subtherapeutic INR likely secondary to holding of Coumadin for dental procedure, extraction of 6 teeth last week. -Patient placed on low intensity heparin infusion to bridge Coumadin until INR is therapeutic., Monitor for any signs of bleeding. INR currently 1.8. -Patient to remain on continuous telemetry monitoring. -Continue to lisinopril and Aldactone secondary to hyperkalemia and low normal blood pressure GERD with history of Barton's esophagus -Continue Protonix 40 mg IVP daily. Hhj-wvptkay-ptjcapqdu diabetes mellitus -Glycemic protocol with NovoLog sliding scale. Monitor for hypoglycemia -On Farxiga 10 daily Obstructive sleep apnea CPAP dependent -Continue use of home CPAP nightly and while napping. Data reviewed: -INR 1.8. Blood glucose levels have ranged from 99-122 over the past 24 hours. CODE STATUS: Full code DVT prophylaxis: Heparin infusion, bridging Coumadin until therapeutic Anticipated discharge date: Likely tomorrow Anticipated discharge place: Home Patient was seen independently by Nurse Pracitioner. This document was prepared using [employer] dictation software. Please allow for errors in padded products inspector trimmer, while rare they do occur. I reviewed the documentation as provided by the LINCOLN above, who is the original author of this note. I agree with the documented assessment and plan, with the following changes: none Objective - Vital Signs Vital signs: Vital Signs Temp 97.9 F 06/07/23 20:00 Pulse 81 06/08/23 04:00 Resp 16 06/08/23 04:00 BP 100/70 06/08/23 04:00 Pulse Ox 96 06/08/23 04:00 FiO2 Intake & Output 06/07/23 06/08/23 06/08/23 18:59 06:59 18:59 Intake Total 729.25 250 Output Total 1525 Balance -795.75 250 Intake: IV 10 Invasive Line 1 10 Intake, IV Titration 179.25 250 Amount Diltiazem 125 mg In 129.25 Sodium Chloride 0.9% 100 ml @ 5 MG/HR 5 mls/hr IV .Q24H [facility] Rx#:[id number] Heparin Sod,Pork in 0.45% 250 NaCl 25,000 unit In 0.45 % NaCl 1 250ml.bag @ 8. 165 UNITS/KG/HR 10 mls/hr IV .Q24H [facility] Rx#: [id number] cefTRIAXone 2 gm In 50 Sodium Chloride 0.9% 50 ml @ 100 mls/hr IVPB Q24H [facility] Rx#:[id number] Oral 540 Output: Urine 1525 Other: Voiding Method Urinal Urinal # Voids 1 - Labs CBC & Chem 7: 06/07/23 04:20 06/07/23 04:20 Labs: Abnormal Lab Results - Last 24 Hours (Table) 06/07/23 06/07/23 Range/Units 11:31 20:25 POC Glucose (mg/dL) 122 H 111 H (70-110) mg/dL
[2023-06-08 11:38] LABS: Glucose,Whole Blood 121 mg/dL (70-110)
--- NOTE | 2023-06-08 12:47 | P.PN ---
Subjective Progress Note Date: 06/08/23 Patient is a pleasant 62-year-old male who presented to hospital with A-fib with RVR. Patient reports he is feeling much better today. Patient's heart rate has significantly improved with the addition of metoprolol 100 mg twice daily as well as IV diltiazem. He has no complaints of chest pain or heart palpitations today. Telemetry is atrial fibrillation with controlled rate. INR is pending. Patient is on heparin until INR is therapeutic. GENERAL: Well-appearing, well-nourished and in no acute distress. NECK: Supple without JVD or thyromegaly. LUNGS: Breath sounds clear to auscultation bilaterally. Respiration equal and unlabored. No wheezes, rales or rhonchi. HEART: Regular rate and rhythm without murmurs, rubs or gallops. S1 and S2 heard. EXTREMITIES: Normal range of motion, no edema. No clubbing or cyanosis. Peripheral pulses intact and strong. IMPRESSION: 1. Persistent atrial fibrillation with RVR, currently rate controlled 2. Shortness of breath 3. Pneumonia 4. Leukocytosis 5. Subtherapeutic INR, secondary to recent dental procedure and with holding of Coumadin 6. Recent dental extraction x 6 teeth 7. Hyperlipidemia 8. GERD PLAN: Discontinue IV diltiazem. If INR is therapeutic, patient is cleared for discharge or patient may be bridge d at home with Lovenox. Further recommendations based on patient's clinical course. Nurse practitioner note has been reviewed, I agree with documented findings and plan of care. Patient was seen and examined. Objective - Vital Signs Vital signs: Vital Signs Temp 97.9 F 06/07/23 20:00 Pulse 81 06/08/23 04:00 Resp 16 06/08/23 04:00 BP 100/70 06/08/23 04:00 Pulse Ox 96 06/08/23 04:00 FiO2 Intake & Output 06/07/23 06/08/23 06/08/23 18:59 06:59 18:59 Intake Total 729.25 250 Output Total 1525 Balance -795.75 250 Intake: IV 10 Invasive Line 1 10 Intake, IV Titration 179.25 250 Amount Diltiazem 125 mg In 129.25 Sodium Chloride 0.9% 100 ml @ 5 MG/HR 5 mls/hr IV .Q24H [facility] Rx#:[id number] Heparin Sod,Pork in 0.45% 250 NaCl 25,000 unit In 0.45 % NaCl 1 250ml.bag @ 8. 165 UNITS/KG/HR 10 mls/hr IV .Q24H [facility] Rx#: [id number] cefTRIAXone 2 gm In 50 Sodium Chloride 0.9% 50 ml @ 100 mls/hr IVPB Q24H [facility] Rx#:[id number] Oral 540 Output: Urine 1525 Other: Voiding Method Urinal Urinal # Voids 1 - Labs CBC & Chem 7: 06/07/23 04:20 06/07/23 04:20 Labs: Abnormal Lab Results - Last 24 Hours (Table) 06/07/23 06/07/23 Range/Units 11:31 20:25 POC Glucose (mg/dL) 122 H 111 H (70-110) mg/dL
[2023-06-08 16:41] LABS: Glucose,Whole Blood 104 mg/dL (70-110)
[2023-06-08] MEDS: WARFARIN 7.5 MG TAB PO ONE (17:03)
[2023-06-08 20:24] LABS: Glucose,Whole Blood 97 mg/dL (70-110)
[2023-06-09 06:15] LABS: Glucose,Whole Blood 110 mg/dL (70-110)
[2023-06-09 09:14] LABS: HCT 49.5 % (39.0-53.0); HGB 15.9 gm/dL (13.0-17.5); MCH 31.3 pg (25.0-35.0); MCHC 32.2 g/dL (31.0-37.0); MCV 97.3 fL (80.0-100.0); Mean Platelet Volume 8.9; Platelet Count 430 k/uL (150-450); RBC 5.09 m/uL (4.30-5.90); RDW 15.7 % (11.5-15.5); WBC 8.5 k/uL (3.8-10.6)
[2023-06-09 09:21] LABS: INR 2.2 (<1.2); Partial Thromboplastin Time 61.4 sec (22.0-30.0); Prothrombin Time 21.8 sec (10.0-12.5)
[2023-06-09 09:25] LABS: ALT 122 U/L (4-49); AST 66 U/L (17-59); African American GFR (CKD) >90 (>60 ml/min/1.73 sqM); Albumin 2.7 g/dL (3.5-5.0); Alkaline Phosphatase 105 U/L (38-126); Anion Gap 10 mmol/L; Blood Urea Nitrogen 16 mg/dL (9-20); Calcium 8.8 mg/dL (8.4-10.2); Carbon Dioxide 19 mmol/L (22-30); Chloride 109 mmol/L (98-107); Glucose 184 mg/dL (74-99); Magnesium 1.7 mg/dL (1.6-2.3); Non-African American GFR(CKD) 87 (>60 ml/min/1.73 sqM); Potassium 4.4 mmol/L (3.5-5.1); Sodium 138 mmol/L (137-145); Total Bilirubin 0.4 mg/dL (0.2-1.3); Total Protein 5.6 g/dL (6.3-8.2)
[2023-06-09 10:17] VITALS: TEMP 97.9
[2023-06-09 11:38] LABS: Glucose,Whole Blood 103 mg/dL (70-110)
--- NOTE | 2023-06-09 11:42 | P.DS ---
Providers Date of admission: 06/05/23 00:35 Expected date of discharge: 06/09/23 Attending physician: Darryl Wiseman MD Consults: 06/05/23 00:35 Consult Physician Urgent Consulting Provider: [facility] Consult Reason/Comments: acute chest pain, afib with rvr, pericardial effusion Do you want consulting provider notified?: Yes Primary care physician: Ronan Frazier MD Hospital Course: Discharge Diagnosis: Sepsis secondary to community-acquired pneumonia. Patient completed full course of IV antibiotics with 3-day course of azithromycin 500 mg daily and 5-day course of Rocephin 2 g daily. Atrial fibrillation with RVR. Rapid ventricular rate has been controlled. Patient with chronic atrial fibrillation. Metoprolol was increased to 100 mg twice daily. Patient to continue with Coumadin for anticoagulation. INR therapeutic on discharge at 2.2. Subtherapeutic INR. Subtherapeutic INR believed to be secondary to patient holding Coumadin for dental procedure. Coumadin was bridged with heparin infusion. INR therapeutic at 2.2 on day of discharge. Patient to have repeat INR completed in 3 days with results to be sent to PCP and pv design and installation technician for monitoring and further management. Hyperkalemia, resolved. Aldactone discontinued. Transaminitis, likely chronic, unknown baseline. Stable. Hypertension. Patient initially taking Aldactone 25 mg daily and metoprolol 50 mg twice daily. Metoprolol was increased to 100 mg twice daily by cardiology and Aldactone was discontinued secondary to hyperkalemia upon arrival. Hyperlipidemia. Continue pravastatin 40 mg nightly. GERD with history of Barton's esophagus. Continue omeprazole 20 mg daily. [id number] diabetes mellitus. Resume Mounjaro and Farxiga. Hemoglobin A1c 8.2%. Obstructive sleep apnea CPAP dependent. Continue use of home CPAP nightly and while napping. Hospital Course: Patient is a pleasant 62-year-old male with a past medical history of atrial fibrillation on anticoagulation with Coumadin, hypertension, hyperlipidemia, GERD with Barton's esophagus, asthma, [id number] diabetes mellitus, and type II chronic kidney disease. He was transferred to our facility from [facility] after presenting there with a 4-day history of progressively worsening shortness of breath and nonproductive cough. He was reportedly found to be in atrial fibrillation with RVR and was given a Cardizem drip followed by bolus. CT chest was completed and per documentation in chart revealed left lower lobe infiltrate. Patient was then started on antibiotics and transferred to our facility for higher level of care and evaluation. Upon arrival to our facility, vital signs completed and reviewed. Blood pressure 137/99, heart rate 126, respiratory rate 18, temp 98.2 F, and SpO2 of 98% on room air. EKG was completed showing atrial flutter with RVR at 132 bpm. Labs completed and reviewed. CBC showing polycythemia with an elevated hemoglobin of 18.0, WBC count of 19.0, and platelet count of 479. Coagulation profile showing subtherapeutic INR of 1.2. BMP showing hyponatremia with sodium of 133, hyperkalemia with potassium of 5.2, hypocarbia with bicarb of 19, and prerenal azotemia with BUN of 27 and creatinine of 1.00. Blood glucose was 111. Liver profile showing transaminitis with elevated AST of 129, ALT of 81, and alkaline phosphatase of 160. Troponin was negative at less than 0.012. Patient admitted under our services with consultation to cardiology. Cardizem drip discontinued, remains on heparin drip. Now rate controlled. Patient also has community- acquired pneumonia, on IV antibiotics. Echocardiogram shows LVH with preserved systolic function. Patient was initially on Aldactone 25 mg daily and metoprolol 50 mg twice daily. Metoprolol was increased to 100 mg twice daily by cardiology and Aldactone was discontinued secondary to hyperkalemia upon arrival. Patient remains in persistent atrial fibrillation but with controlled ventricular rate. He completed full course of IV antibiotics for his community- acquired pneumonia with 3-day course of azithromycin 500 mg daily and 5-day course of Rocephin 2 g daily. Medically, patient is stable for discharge at this time. He was evaluated by physical therapy stating patient at baseline functioning and recommended discharge home. Patient provided with discharge instructions and all questions answered at this time. Patient is medically stable and being discharged home and to follow-up outpatient with PCP in 1 to 2 days and with pv design and installation technician in 1 week. INR was therapeutic on day of discharge at 2.2. Physical exam: Vital signs reviewed and stable. General: Nontoxic, no distress and appears stated age. Derm: Skin warm and dry, normal coloration for ethnicity. Head: Atraumatic, normocephalic and symmetric. Eyes: EOMs intact, no lid lag, and anicteric sclera Mouth: no lip lesions, mucus membranes moist Cardiovascular: Irregularly irregular with normal S1S2, no murmur, positive posterior tibial pulses bilaterally, and cap refill < 2 seconds. Lungs: Respirations even, regular, and unlabored on room air. Lungs CTA bilate rally, no rhonchi, no rales, no wheezing, and no accessory muscle usage. Abdominal: soft, nontender to palpation, no guarding, no appreciable organomegaly Ext: ROM intact. No gross muscle atrophy, no edema, no contractures Neuro: Speech clear, face symmetrical and CN II-XII grossly intact with no noted focal neuro deficits Psych: Alert and oriented to person, place, time, and situation. Appropriate and pleasant affect. A total of 35 minutes of time were spent preparing this complex discharge summary. Pt was discharged on 06/09/2023 at 11:25 AM. Patient was seen independently by Nurse Practitioner. This document was prepared using [employer] dictation software. Please allow for errors in physical integration practitioner while rare they do occur. Drew Weston NP rendered care for this patient independently, reviewed the findings and plan as documented in the note above. I did not physically speak with or examine the patient on this date. Patient Condition at Discharge: Stable Plan - Discharge Summary Discharge Rx Participant: Yes New Discharge Prescriptions: New Metoprolol Tartrate [Lopressor] 100 mg PO BID 30 Days #120 tab Continue traMADol HCL 50 mg PO TID PRN PRN Reason: Pain Omalizumab [Xolair] 300 mg SQ Q30D Cyclobenzaprine [Flexeril] 10 mg PO HS Niacin 1,000 mg PO DAILY DULoxetine HCL [Cymbalta] 60 mg PO DAILY Cyanocobalamin [Vitamin B-12] 500 mcg PO HS Ipratropium-Albuterol Nebulize [Duoneb 0.5 mg-3 mg/3 ml Soln] 3 ml INHALATION RT-Q4H PRN PRN Reason: Shortness Of Breath Chlorhexidine Gluconate [Peridex] 15 ml PO DIRECTED Acetaminophen-Codeine 300-30mg [Tylenol w/codeine #3] 1 tab PO Q4H PRN PRN Reason: Pain Magnesium Oxide [Magox 400] 800 mg PO DAILY Warfarin [Coumadin] 7.5 mg PO FR@2100 Dapagliflozin Propanediol [Farxiga] 10 mg PO DAILY Albuterol Inhaler [Ventolin Hfa Inhaler] 1 - 2 puff INHALATION RT-Q6H PRN PRN Reason: Shortness Of Breath Beclomethasone Dipropionate [Qvar 80mcg Redihaler] 1 puff INHALATION RT-BID PRN PRN Reason: Shortness Of Breath Omeprazole [PriLOSEC] 20 mg PO DAILY Montelukast [Singulair] 10 mg PO DAILY Ergocalciferol [Vitamin D2 (1250 Mcg = 04789 Iu)] 1,250 mcg PO Q14D calcitrioL 0.25 mcg PO HS Pravastatin Sodium [Pravachol] 40 mg PO HS Warfarin [Coumadin] 5 mg PO SUMOTUWETHSA@2100 allopurinoL 100 mg PO HS traZODone HCL 100 mg PO HS Pyridoxine HCl (Vitamin B6) [Vitamin B-6] 100 mg PO DAILY EPINEPHrine (Auto Inject) [Epipen] 0.3 mg IM ONCE PRN PRN Reason: Anaphylaxis Tirzepatide [Mounjaro] 10 mg SQ RODRIGUEZ Pregabalin [Lyrica] 50 mg PO HS Discontinued Amoxicillin 875 mg PO BID Spironolactone [Aldactone] 25 mg PO DAILY Metoprolol Tartrate [Lopressor] 50 mg PO BID Discharge Medication List Cyanocobalamin [Vitamin B-12] 500 mcg PO HS 02/23/23 [History] Cyclobenzaprine [Flexeril] 10 mg PO HS 02/23/23 [History] DULoxetine HCL [Cymbalta] 60 mg PO DAILY 02/23/23 [History] Ergocalciferol [Vitamin D2 (1250 Mcg = 00416 Iu)] 1,250 mcg PO Q14D 02/23/23 [History] Montelukast [Singulair] 10 mg PO DAILY 02/23/23 [History] Niacin 1,000 mg PO DAILY 02/23/23 [History] Omalizumab [Xolair] 300 mg SQ Q30D 02/23/23 [History] Omeprazole [PriLOSEC] 20 mg PO DAILY 02/23/23 [History] Pravastatin Sodium [Pravachol] 40 mg PO HS 02/23/23 [History] Pyridoxine HCl (Vitamin B6) [Vitamin B-6] 100 mg PO DAILY 02/23/23 [History] Warfarin [Coumadin] 5 mg PO SUMOTUWETHSA@209902/23/23 [History] allopurinoL 100 mg PO HS 02/23/23 [History] calcitrioL 0.25 mcg PO HS 02/23/23 [History] traMADol HCL 50 mg PO TID PRN 02/23/23 [History] traZODone HCL 100 mg PO HS 02/23/23 [History] Acetaminophen-Codeine 300-30mg [Tylenol w/codeine #3] 1 tab PO Q4H PRN 06/04/23 [History] Albuterol Inhaler [Ventolin Hfa Inhaler] 1 - 2 puff INHALATION RT-Q6H PRN 06/04/23 [History] Beclomethasone Dipropionate [Qvar 80mcg Redihaler] 1 puff INHALATION RT-BID PRN 06/04/23 [History] Chlorhexidine Gluconate [Peridex] 15 ml PO DIRECTED 06/04/23 [History] Dapagliflozin Propanediol [Farxiga] 10 mg PO DAILY 06/04/23 [History] EPINEPHrine (Auto Inject) [Epipen] 0.3 mg IM ONCE PRN 06/04/23 [History] Ipratropium-Albuterol Nebulize [Duoneb 0.5 mg-3 mg/3 ml Soln] 3 ml INHALATION RT-Q4H PRN 06/04/23 [History] Magnesium Oxide [Magox 400] 800 mg PO DAILY 06/04/23 [History] Pregabalin [Lyrica] 50 mg PO HS 06/04/23 [History] Tirzepatide [Mounjaro] 10 mg SQ RODRIGUEZ 06/04/23 [History] Warfarin [Coumadin] 7.5 mg PO FR@209906/04/23 [History] Metoprolol Tartrate [Lopressor] 100 mg PO BID 30 Days #120 tab 06/09/23 [Rx] Follow up Appointment(s)/Referral(s): Celso Epstein MD [STAFF PHYSICIAN] - 1 Week (Call office /thursday to make a follow up appointment ) Ronan Frazier MD [Primary Care Provider] - 1-2 days (No answer at office, call to make follow up ) Ambulatory/Diagnostic Orders: Prothrombin Time INR [LAB.AMB] Time Frame: 3 Days, Location: None Selected Patient Instructions/Handouts: A-fib (Atrial Fibrillation) (DC), Community Acquired Pneumonia (DC) Activity/Diet/Wound Care/Special Instructions: Activity: As tolerated. Take breaks as needed. Diet: Heart healthy and carb consistent diet. Avoid salts, or foods with hidden salts such as canned or boxed foods and frozen dinners. Extra salt makes your heart work harder and traps the fluid in your body for longer. Special Instructions: Take all of your medications as directed and remember to keep all of your doctor's appointments and follow-up as needed. Thank you for allowing us to participate in your care, it was truly a pleasure having you for our patient!!! . Discharge Disposition: HOME SELF-CARE
--- NOTE | 2023-06-09 12:21 | P.PN ---
Subjective Progress Note Date: 06/09/23 Patient is a pleasant 62-year-old male who presented to hospital with A-fib with RVR. Patient reports he is feeling much better today. Patient's heart rate has significantly improved with the addition of metoprolol 100 mg twice daily as well as IV diltiazem. He has no complaints of chest pain or heart palpitations today. Telemetry is atrial fibrillation with controlled rate. INR is pending. Patient is on heparin until INR is therapeutic. 06/09 Patient is seen today in follow-up. Heart rate is controlled. INR today 2.2. Patient has been on heparin drip bridging to Coumadin. GENERAL: Well-appearing, well-nourished and in no acute distress. NECK: Supple without JVD or thyromegaly. LUNGS: Breath sounds clear to auscultation bilaterally. Respiration equal and unlabored. No wheezes, rales or rhonchi. HEART: Regular rate and rhythm without murmurs, rubs or gallops. S1 and S2 heard. EXTREMITIES: Normal range of motion, no edema. No clubbing or cyanosis. Peripheral pulses intact and strong. IMPRESSION: 1. Persistent atrial fibrillation with RVR, currently rate controlled 2. Shortness of breath 3. Pneumonia 4. Leukocytosis 5. Subtherapeutic INR, secondary to recent dental procedure and with holding of Coumadin 6. Recent dental extraction x 6 teeth 7. Hyperlipidemia 8. GERD PLAN: Discontinue heparin drip Patient is cleared for discharge from cardiology and may follow-up in the office in 1 to 2 weeks. Nurse practitioner note has been reviewed, I agree with documented findings and plan of care. Patient was seen and examined. Objective - Vital Signs Vital signs: Vital Signs Temp 97.5 F L 06/08/23 20:00 Pulse 81 06/09/23 04:00 Resp 16 06/09/23 04:00 BP 104/71 06/09/23 04:00 Pulse Ox 92 L 06/09/23 04:00 FiO2 21 06/09/23 00:44 Intake & Output 06/08/23 06/09/23 06/09/23 18:59 06:59 18:59 Intake Total 1020.000 120 180 Balance 1020.000 120 180 Intake: Intake, IV Titration 300.000 Amount Heparin Sod,Pork in 0.45% 250.000 NaCl 25,000 unit In 0.45 % NaCl 1 250ml.bag @ 8. 165 UNITS/KG/HR 10 mls/hr IV .Q24H [facility] Rx#: [id number] cefTRIAXone 2 gm In 50 Sodium Chloride 0.9% 50 ml @ 100 mls/hr IVPB Q24H [facility] Rx#:[id number] Oral 720 120 180 Other: Voiding Method Urinal # Voids 1 - Labs CBC & Chem 7: 06/09/23 08:35 06/09/23 08:42 Labs: Abnormal Lab Results - Last 24 Hours (Table) 06/08/23 06/08/23 06/08/23 Range/Units 07:39 07:39 11:36 PT 18.6 H (10.0-12.5) sec INR 1.8 H (<1.2) APTT 33.9 H (22.0-30.0) sec POC Glucose (mg/dL) 121 H (70-110) mg/dL 06/08/23 Range/Units 16:05 PT (10.0-12.5) sec INR (<1.2) APTT 70.5 H (22.0-30.0) sec POC Glucose (mg/dL) (70-110) mg/dL
[2023-06-09 12:59] VITALS: BP 99/65; PULSE 85; RESP 17
[2023-06-09] MEDS ORDERED: WARFARIN 5 MG TAB PO ONE (18:00)
== END 2023-06-09 17:04 | disposition home or self-care (01) | DRG 871 ==
LOC: EC 19:42 → 3SCARD 06-05 00:35 → 3NCARDOBS 06-07 22:11 → 3SCARD 06-07 22:14
PROVIDERS: ADMIT Internal Medicine; ATTEND Internal Medicine
DX: A41.9 Sepsis, unspecified organism (principal); J18.9 Pneumonia, unspecified organism; I31.39 Other pericardial effusion (noninflammatory); I13.0 Hypertensive heart and chronic kidney disease with heart failure and stage 1 through stage 4 chronic kidney disease, or unspecified chronic kidney disease; I48.19 Other persistent atrial fibrillation; E87.1 Hypo-osmolality and hyponatremia; I48.92 Unspecified atrial flutter; J98.11 Atelectasis; I50.810 Right heart failure, unspecified; E11.22 Type 2 diabetes mellitus with diabetic chronic kidney disease; E11.51 Type 2 diabetes mellitus with diabetic peripheral angiopathy without gangrene; F32.A Depression, unspecified; N18.2 Chronic kidney disease, stage 2 (mild); D75.1 Secondary polycythemia; E78.5 Hyperlipidemia, unspecified; E87.5 Hyperkalemia; F41.9 Anxiety disorder, unspecified; G47.33 Obstructive sleep apnea (adult) (pediatric); K21.9 Gastro-esophageal reflux disease without esophagitis; K22.70 Barrett's esophagus without dysplasia; R79.1 Abnormal coagulation profile; Z79.84 Long term (current) use of oral hypoglycemic drugs; Z79.01 Long term (current) use of anticoagulants; Z79.899 Other long term (current) drug therapy; Z79.51 Long term (current) use of inhaled steroids; Z79.85 Long-term (current) use of injectable non-insulin antidiabetic drugs; Z86.73 Personal history of transient ischemic attack (TIA), and cerebral infarction without residual deficits; M10.9 Gout, unspecified; R74.01 Elevation of levels of liver transaminase levels
CPT/HCPCS: 36415; 80048; 80053; 83036; 83735; 83880; 84484; 85025; 85027; 85610; 85730; 93005; 93306; 96365; 96366; 99291

== ENCOUNTER 2023-07-09 17:14 | Inpatient (IN) | payer OTHER ==
--- NOTE | 2023-07-09 17:39 | ED ---
Weakness HPI - General Stated complaint: Pneumonia, AFIB Time Seen by Provider: 07/09/23 17:16 - History of Present Illness Initial comments: This patient is a 62-year-old man who is transferred here from [facility]. The patient had gone there earlier today because he was having worsening of generalized weakness and fatigue. The patient states this has been going on over the past couple of days, worse this morning. He also had noted some nonproductive cough. When the patient was seen there he was diagnosed with a left lower lobe pneumonia, found to have lactic acid level 3.6, leukocytosis with white count 15.2 thousand, elevated glucose at 183.,. He received Rocephin 2 g, azithromycin 500 mg, and was transferred here to have admission. MD Complaint: generalized weakness Onset/Timin -: days(s) Location: generalized Consistency: constant Improves with: none Worsens with: exertion Associated Symptoms: other (Cough) - Related Data Home Medications Medication Instructions Recorded Confirmed Cyanocobalamin [Vitamin B-12] 500 mcg PO HS 02/23/23 07/09/23 Cyclobenzaprine [Flexeril] 10 mg PO HS 02/23/23 07/09/23 DULoxetine HCL [Cymbalta] 60 mg PO DAILY 02/23/23 07/09/23 Ergocalciferol [Vitamin D2 (1250 1,250 mcg PO Q14D 02/23/23 07/09/23 Mcg = 54462 Iu)] Montelukast [Singulair] 10 mg PO DAILY 02/23/23 07/09/23 Niacin 1,000 mg PO DAILY 02/23/23 07/09/23 Omalizumab [Xolair] 300 mg SQ Q30D 02/23/23 07/09/23 Omeprazole [PriLOSEC] 20 mg PO DAILY 02/23/23 07/09/23 Pravastatin Sodium [Pravachol] 40 mg PO HS 02/23/23 07/09/23 Pyridoxine HCl (Vitamin B6) 100 mg PO DAILY 02/23/23 07/09/23 [Vitamin B-6] Warfarin [Coumadin] 5 mg PO SUMOWETHFR@2100 02/23/23 07/09/23 allopurinoL 100 mg PO HS 02/23/23 07/09/23 calcitrioL 0.25 mcg PO HS 02/23/23 07/09/23 traMADol HCL 50 mg PO TID PRN 02/23/23 07/09/23 traZODone HCL 100 mg PO HS 02/23/23 07/09/23 Albuterol Inhaler [Ventolin Hfa 1 - 2 puff INHALATION RT-Q6H PRN 06/04/23 07/09/23 Inhaler] Beclomethasone Dipropionate [Qvar 1 puff INHALATION RT-BID PRN 06/04/23 07/09/23 80mcg Redihaler] Dapagliflozin Propanediol [Farxiga] 10 mg PO DAILY 06/04/23 07/09/23 EPINEPHrine (Auto Inject) [Epipen] 0.3 mg IM ONCE PRN 06/04/23 07/09/23 Ipratropium-Albuterol Nebulize 3 ml INHALATION RT-Q4H PRN 06/04/23 07/09/23 [Duoneb 0.5 mg-3 mg/3 ml Soln] Magnesium Oxide [Magox 400] 800 mg PO DAILY 06/04/23 07/09/23 Pregabalin [Lyrica] 50 mg PO HS 06/04/23 07/09/23 Tirzepatide [Mounjaro] 10 mg SQ WE 06/04/23 07/09/23 Warfarin [Coumadin] 7.5 mg PO TUSA@2100 06/04/23 07/09/23 Metoprolol Tartrate [Lopressor] 100 mg PO BID 07/09/23 07/09/23 Previous Rx's Medication Instructions Recorded Verapamil [Isoptin] 40 mg PO BID #30 tab 07/14/23 cefUROXime axetiL [Ceftin] 500 mg PO BID 7 Days #14 tab 07/14/23 Allergies Allergy/AdvReac Type Severity Reaction Status Date / Time No Known Allergies Allergy Verified 07/09/23 17:52 Review of Systems ROS Statement: Those systems with pertinent positive or pertinent negative responses have been documented in the HPI. ROS Other: All systems not noted in ROS Statement are negative. Constitutional: Reports: chills, weakness Respiratory: Reports: cough. Denies: dyspnea, wheezes, hemoptysis Cardiovascular: Denies: chest pain, palpitations, orthopnea, edema, syncope Endocrine: Reports: fatigue Gastrointestinal: Denies: abdominal pain, vomiting, diarrhea, constipation Genitourinary: Denies: dysuria, hematuria Musculoskeletal: Denies: back pain Skin: Denies: rash Neurological: Denies: headache, weakness, numbness Past Medical History Past Medical History: Atrial Fibrillation, Asthma, CVA/TIA, Diabetes Mellitus, Deep Vein Thrombosis (DVT), GERD/Reflux, Renal Disease, Sleep Apnea/CPAP/BIPAP Additional Past Medical History / Comment(s): MARTINEZ'S ESOPHAGUS, GOUT, MULT. TIA'S, STAGE 2 KIDNEY DISEASE, CONN DISEASE History of Any Multi-Drug Resistant Organisms: None Reported Past Surgical History: Cholecystectomy, Hernia Repair Additional Past Surgical History / Comment(s): ADRENAL GLAND REMOVAL (CONN DISEASE), STAN FUNDOPLICATION, MULT. HERNIA REPAIRS, carpal tunnel Past Anesthesia/Blood Transfusion Reactions: No Reported Reaction Past Psychological History: Anxiety, Depression Smoking Status: Never smoker Past Alcohol Use History: None Reported Past Drug Use History: None Reported General Exam General appearance: alert, in no apparent distress Head exam: Present: atraumatic, normocephalic Eye exam: Present: normal appearance. Absent: scleral icterus, conjunctival injection Neck exam: Present: normal inspection, full ROM Respiratory exam: Present: normal lung sounds bilaterally. Absent: respiratory distress, wheezes, rales, rhonchi, stridor, accessory muscle use Cardiovascular Exam: Present: tachycardia (Rate approximate 108 at my exam), irregular rhythm, normal heart sounds. Absent: systolic murmur, diastolic murmur, rubs, gallop GI/Abdominal exam: Present: soft. Absent: distended, tenderness, guarding, rebound, rigid, mass Extremities exam: Present: normal inspection, normal capillary refill. Absent: pedal edema, calf tenderness Back exam: Present: normal inspection. Absent: CVA tenderness (R), CVA tenderness (L) Neurological exam: Present: alert Skin exam: Present: warm, dry, intact, normal color. Absent: rash Course Vital Signs 07/09/23 07/09/23 07/10/23 17:15 17:30 04:06 Temperature 98.6 F Pulse Rate 64 106 H Pulse Rate [ [employer] ] Respiratory 20 16 18 Rate Blood Pressure 132/84 101/66 Blood Pressure [Left Arm] O2 Sat by Pulse 94 L 99 Oximetry Fraction of Inspired Oxygen (FIO2) 07/10/23 07/10/23 07/10/23 08:43 09:00 11:38 Temperature Pulse Rate 120 H 111 H 114 H Pulse Rate [ [employer] ] Respiratory 20 20 Rate Blood Pressure 108/87 121/92 104/91 Blood Pressure [Left Arm] O2 Sat by Pulse 94 L 97 95 Oximetry Fraction of Inspired Oxygen (FIO2) 07/10/23 07/10/23 07/10/23 13:00 14:00 15:51 Temperature Pulse Rate 105 H 111 H 94 Pulse Rate [ [employer] ] Respiratory 20 19 18 Rate Blood Pressure 114/91 114/98 115/96 Blood Pressure [Left Arm] O2 Sat by Pulse 96 98 96 Oximetry Fraction of 3 3 Inspired Oxygen (FIO2) 07/10/23 16:47 Temperature 98.1 F Pulse Rate Pulse Rate [ 87 [employer] ] Respiratory 18 Rate Blood Pressure Blood Pressure 122/82 [Left Arm] O2 Sat by Pulse 96 Oximetry Fraction of Inspired Oxygen (FIO2) EKG Findings - EKG Results: EKG: interpreted by ERMD, normal axis, normal QRS EKG shows: atrial fibrillation (Rate 105 bpm) - Blocks, [place], Hypertrophy, ST Abn: Repolarization changes or abnormalities: nonspecific abnormality, ST segment, and/or T wave Medical Decision Making - Medical Decision Making Patient is a 62-year-old man transferred here from the outside hospital to have admission for community-acquired pneumonia. He has been started on antibiotics and transferred here. Was pt. sent in by a medical professional or institution ([facility], [employer], urgent care, hospital, or [facility]...) When possible be specific @ -The patient is transferred here from the outside hospital Did you speak to anyone other than the patient for history (EMS, parent, family, police, friend...)? What history was obtained from this source @ -[EMS did give history Did you review nursing and triage notes (agree or disagree)? Why? @ -[I reviewed and agree with nursing and triage notes] Were old charts reviewed (outside hosp., previous admission, EMS record, old EKG, old radiological studies, urgent care reports/EKG's, [facility] records)? Report findings @ -[Transfer records were reviewed] Differential Diagnosis (chest pain, altered mental status, abdominal pain women, abdominal pain men, vaginal bleeding, weakness, fever, dyspnea, syncope, headache, dizziness, GI bleed, back pain, seizure, CVA, palpatations, mental health, musculoskeletal)? @ -[Differential Dyspnea: Coronary syndrome, arrhythmia, tamponade, asthma, COPD, pulmonary embolism, pneumonia, pneumothorax, pulmonary effusion, anaphylaxis, diabetic ketoacidosis, flailed chest, pulmonary contusion, diaphragmatic rupture, anemia, neuromuscular, this is not meant to be an all-inclusive list. EKG interpreted by me (3pts min.). @ -[As above] X-rays interpreted by me (1pt min.). @ -[None done] CT interpreted by me (1pt min.). @ -[None done] U/S interpreted by me (1pt. min.). @ -[None done] What testing was considered but not performed or refused? (CT, X-rays, U/S, labs)? Why? @ -[None] What meds were considered but not given or refused? Why? @ -[None] Did you discuss the management of the patient with other professionals (professionals i.e. , PA, [employer], lab, RT, psych nurse, transition social worker, technical maintenance technician, teacher, wildlife officer, case loader operator)? Give summary @ -[Patient is admitted, case discussed with the admitting physician and treatment recommendations incorporated Was smoking cessation discussed for >3mins.? @ -[No] Was critical care preformed (if so, how long)? @ -[No] Were there social determinants of health that impacted care today? How? (Homelessness, low income, unemployed, alcoholism, drug addiction, transportation, low edu. Level, literacy, decrease access to med. care, snf, rehab)? @ -[No] Was there de-escalation of care discussed even if they declined (Discuss DNR or withdrawal of care, Hospice)? DNR status @ -[No] What co-morbidities impacted this encounter? (DM, HTN, Smoking, COPD, CAD, Cancer, CVA, ARF, Chemo, Hep., AIDS, mental health diagnosis, sleep apnea, morbid obesity)? @ -[Diabetes, atrial fibrillation, morbid obesity Was patient admitted / discharged? Hospital course, mention meds given and route, prescriptions, significant lab abnormalities, going to OR and other pertinent info. @ -[hospital course] Undiagnosed new problem with uncertain prognosis? @ -[No] Drug Therapy requiring intensive monitoring for toxicity (Heparin, Nitro, Insulin, Cardizem)? @ -[No] Were any procedures done? @ -[No] Diagnosis/symptom? @ -[Acute pneumonia Atrial fibrillation with rapid ventricular rate Acute, or Chronic, or Acute on Chronic? @ -[Acute Uncomplicated (without systemic symptoms) or Complicated (systemic symptoms)? @ -[Uncomplicated Side effects of treatment? @ -[No] Exacerbation, Progression, or Severe Exacerbation? @ -[No] Poses a threat to life or bodily function? How? (Chest pain, USA, MS, pneumonia, PE, COPD, DKA, ARF, appy, cholecystitis, CVA, Diverticulitis, Homicidal, Suicidal, threat to staff... and all critical care pts) @ -[No] - Lab Data Result diagrams: 07/13/23 06:51 07/13/23 06:51 Disposition Clinical Impression: CAP (community acquired pneumonia), Atrial fibrillation with RVR Disposition: ADMITTED IP TO THIS [facility] Condition: Good Is patient prescribed a controlled substance at d/c from ED?: No
[2023-07-09] MEDS ORDERED: PNEUMONIA PROTOCOL UTILIZED 1 EACH MISC PO PRN (19:42)
[2023-07-09] MEDS ORDERED: FLUTICASONE 110 MCG INHALER INHALATION PRN (19:44)
[2023-07-09] MEDS ORDERED: IPRATROPIUM-ALBUTEROL 3 ML NEB INHALATION PRN (19:44)
[2023-07-09] MEDS: SODIUM CHLORIDE 0.9% 1,000 ML IV SCH (19:50)
[2023-07-09] MEDS: METOPROLOL TARTRATE 50 MG TAB PO STA (19:51)
[2023-07-09] MEDS: METOPROLOL TARTRATE 50 MG TAB PO SCH (20:31)
[2023-07-09] MEDS: PRAVASTATIN SODIUM 40 MG TAB PO SCH (20:41)
[2023-07-09] MEDS: PREGABALIN 50 MG CAP PO SCH (20:41)
[2023-07-09] MEDS: traZODone HCL 100 MG TAB PO SCH (20:42)
[2023-07-09] MEDS ORDERED: WARFARIN 5 MG TAB PO SCH (21:00)
--- NOTE | 2023-07-10 08:14 | XR ---
EXAMINATION TYPE: XR chest 1V portable DATE OF EXAM: 07/10/2023 COMPARISON: NONE HISTORY: Pneumonia TECHNIQUE: Single frontal view of the chest is obtained. FINDINGS: Heart is enlarged and there is a large area of consolidation left lower lobe with small ef fusion. No overt failure. No pneumothorax. Degenerative change of the spine. Subsegmental changes rig ht lung base. IMPRESSION: 1. Cardiomegaly. 2. Large area of consolidation left lower lobe with small effusion correlate for pneumonia.
[2023-07-10] MEDS: PANTOPRAZOLE 40 MG TABLET PO SCH (08:42)
[2023-07-10 09:37] LABS: INR 3.3 (<1.2); Prothrombin Time 32.2 sec (10.0-12.5)
[2023-07-10] MEDS ORDERED: PNEUMONIA PROTOCOL UTILIZED 1 EACH MISC PO PRN (09:50)
[2023-07-10] MEDS ORDERED: VANCOMYCIN IV PER PHARMACY 1 EACH MISC MISCELLANE PRN (09:50)
[2023-07-10] MEDS: AZITHROMYCIN 500 MG TAB PO SCH (09:55)
[2023-07-10] MEDS: DULoxetine HCL 60 MG CAPSULE.DR PO SCH (09:55)
[2023-07-10] MEDS: MONTELUKAST 10 MG TAB PO SCH (09:56)
[2023-07-10] MEDS: MAGNESIUM OXIDE 400 MG TAB PO SCH (09:56)
[2023-07-10] MEDS: PIPERACILLIN-TAZOBACTAM 3.375 GM in SODIUM CHLORIDE 0.9% 100 ML IVPB STA (10:29)
[2023-07-10] MEDS: VANCOMYCIN 1,750 MG in SODIUM CHLORIDE 0.9% 500 ML 500 ML IVPB ONE (10:35)
[2023-07-10] MEDS: PYRIDOXINE 50 MG TAB PO SCH (11:35)
--- NOTE | 2023-07-10 12:23 | US ---
EXAMINATION TYPE: US chest DATE OF EXAM: 07/10/2023 COMPARISON: NONE CLINICAL INDICATION: Male, 62 years old with history of Left pleural effusion; left effusion on same day x-ray TECHNIQUE: Targeted ultrasound of the posterior lower left hemithorax EXAM MEASUREMENTS: Left Pleural Effusion pocket size: 4.3 cm Left skin surface to fluid distance: 5.5 cm Left side marked for possible thoracentesis outside the dept. Pulmonologists are able to review the images in the patient?s EMR. exam limited by patient mobility. Patient unable to sit up, and was scanned semi-erect IMPRESSIONS: Small left pleural effusion.
[2023-07-10 13:07] LABS: Basophils # (A) 0.1 k/uL (0-0.2); Basophils % (A) 1 %; Eosinophils # (A) 0.1 k/uL (0-0.7); Eosinophils % (A) 1 %; HCT 53.9 % (39.0-53.0); HGB 16.5 gm/dL (13.0-17.5); Hypochromasia Slight; Lymphocytes # (A) 1.2 k/uL (1.0-4.8); Lymphocytes % (A) 9 %; MCH 30.3 pg (25.0-35.0); MCHC 30.6 g/dL (31.0-37.0); MCV 99.2 fL (80.0-100.0); Macrocytosis Slight; Mean Platelet Volume 8.3; Monocytes # (A) 0.9 k/uL (0-1.0); Monocytes % (A) 7 %; Neutrophils # (A) 9.9 k/uL (1.3-7.7); Neutrophils % (A) 81 %; Platelet Count 550 k/uL (150-450); RBC 5.44 m/uL (4.30-5.90); RDW 14.9 % (11.5-15.5); WBC 12.3 k/uL (3.8-10.6)
[2023-07-10 13:15] LABS: ALT 90 U/L (4-49); AST 160 U/L (17-59); African American GFR (CKD) >90 (>60 ml/min/1.73 sqM); Albumin 2.9 g/dL (3.5-5.0); Alkaline Phosphatase 136 U/L (38-126); Anion Gap 11 mmol/L; Blood Urea Nitrogen 29 mg/dL (9-20); Calcium 8.4 mg/dL (8.4-10.2); Carbon Dioxide 21 mmol/L (22-30); Chloride 104 mmol/L (98-107); Glucose 124 mg/dL (74-99); Non-African American GFR(CKD) >90 (>60 ml/min/1.73 sqM); Sodium 136 mmol/L (137-145); Total Bilirubin 1.1 mg/dL (0.2-1.3); Total Protein 6.5 g/dL (6.3-8.2)
--- NOTE | 2023-07-10 13:31 | P.CRDCN ---
History of Present Illness Consult date: 07/10/23 Consult reason: atrial fibrillation History of present illness: History of present illness: This is a 62-year-old male patient of Dr. Bahena with past medical history of permanent atrial fibrillation on Coumadin, hyperlipidemia, peripheral vascular disease, gastroesophageal reflux disease. We have been asked to evaluate the patient for A-fib with RVR. Patient initially presented to [facility] due to generalized weakness and fatigue ongoing for several days with nonproductive cough. Patient was diagnosed with a left lower lobe pneumonia found to have lactic acidosis at 3.6 and leukocytosis of 15. Patient also has history of 6 teeth being extracted on Thursday. At [facility], EKG was atrial fibrillation at 68 bpm. CTA of the chest revealed pleural effusions worsened over the past 6 weeks. Stable small pericardial effusion. Atelectasis versus developing left lower lobe infiltrate. Patient subsequently had RVR with heart rate in the 140s was started on Cardizem drip. COVID-19, RSV and influenza testing negative. EKG atrial fibrillation at 105 bpm, telemetry atrial fibrillation 912 Chest x-ray: Cardiomegaly. Large area of consolidation left lower lobe with small effusion correlate for pneumonia. ELISSA Goldstein cardiac catheterization performed in 2005 revealed normal coronary arteries. Chest ultrasound shows small left pleural effusion. Home cardiac medications: Farxiga 10 mg daily, magnesium oxide 800 mg daily, Lopressor 100 mg twice daily, Pravachol 40 mg at bedtime, Coumadin 7.5 mg on Thursday and Thursday 5 mg on other days. Echocardiogram performed 06/06/2023 reveals LVH with preserved systolic function. Lexiscan stress test performed 09/13/2019 revealed negative Lexiscan stress test normal perfusion study. EF 65%. Review Of Systems: At the time of my exam: CONSTITUTIONAL: Denies fever or chills. Reports fatigue HEENT: Denies blurred vision, vision changes, or eye pain. Denies hemoptysis CARDIOVASCULAR: Denies chest pain. Denies orthopnea. Denies PND. Denies palpitations RESPIRATORY: Denies shortness of breath. GASTROINTESTINAL: Denies abdominal pain. Denies nausea or vomiting. HEMATOLOGIC: Denies bleeding disorders. GENITOURINARY: Denies any blood in urine. SKIN: Denies pruitis. Denies rash. Physical examination: Gen: This is a 62-year-old male in no acute distress VS: reviewed HEENT: Head is atraumatic, normocephalic. Pupils equal, round. Sclerae is anicteric. NECK: Supple. No JVD. LUNGS: Bilateral breath sounds. No intercostal retractions. HEART: Irregular rate and rhythm. No murmur. ABDOMEN: Soft No tenderness. EXTREMITIES: No pedal edema. No calf tenderness. NEUROLOGICAL: Patient is awake, alert and oriented x3. Assessment: Permanent atrial fibrillation with moderate rate control Possible pneumonia Hyperlipidemia Peripheral vascular disease Plan: Resume patient's home cardiac medications Add verapamil 40 mg twice daily Continue Coumadin, pharmacy to dose No need to repeat echocardiogram Further recommendations to follow based upon clinical course Thank you kindly for this consultation. Nurse practitioner note has been reviewed, I agree with documented findings and plan of care. Patient was seen and examined. Past Medical History Past Medical History: Atrial Fibrillation, Asthma, CVA/TIA, Diabetes Mellitus, Deep Vein Thrombosis (DVT), GERD/Reflux, Renal Disease, Sleep Apnea/CPAP/BIPAP Additional Past Medical History / Comment(s): MARTINEZ'S ESOPHAGUS, GOUT, MULT. TIA'S, STAGE 2 KIDNEY DISEASE, CONN DISEASE History of Any Multi-Drug Resistant Organisms: None Reported Past Surgical History: Cholecystectomy, Hernia Repair Additional Past Surgical History / Comment(s): ADRENAL GLAND REMOVAL (CONN DISEASE), STAN FUNDOPLICATION, MULT. HERNIA REPAIRS, carpal tunnel Past Anesthesia/Blood Transfusion Reactions: No Reported Reaction Past Psychological History: Anxiety, Depression Smoking Status: Never smoker Past Alcohol Use History: None Reported Past Drug Use History: None Reported Medications and Allergies Home Medications Medication Instructions Recorded Confirmed Type Cyanocobalamin [Vitamin B-12] 500 mcg PO HS 02/23/23 07/09/23 History Cyclobenzaprine [Flexeril] 10 mg PO HS 02/23/23 07/09/23 History DULoxetine HCL [Cymbalta] 60 mg PO DAILY 02/23/23 07/09/23 History Ergocalciferol [Vitamin D2 (1250 1,250 mcg PO Q14D 02/23/23 07/09/23 History Mcg = 13021 Iu)] Montelukast [Singulair] 10 mg PO DAILY 02/23/23 07/09/23 History Niacin 1,000 mg PO DAILY 02/23/23 07/09/23 History Omalizumab [Xolair] 300 mg SQ Q30D 02/23/23 07/09/23 History Omeprazole [PriLOSEC] 20 mg PO DAILY 02/23/23 07/09/23 History Pravastatin Sodium [Pravachol] 40 mg PO HS 02/23/23 07/09/23 History Pyridoxine HCl (Vitamin B6) 100 mg PO DAILY 02/23/23 07/09/23 History [Vitamin B-6] Warfarin [Coumadin] 5 mg PO SUMOWETHFR@209902/23/23 07/09/23 History allopurinoL 100 mg PO HS 02/23/23 07/09/23 History calcitrioL 0.25 mcg PO HS 02/23/23 07/09/23 History traMADol HCL 50 mg PO TID PRN 02/23/23 07/09/23 History traZODone HCL 100 mg PO HS 02/23/23 07/09/23 History Albuterol Inhaler [Ventolin Hfa 1 - 2 puff INHALATION RT-Q6H PRN 06/04/23 07/09/23 History Inhaler] Beclomethasone Dipropionate [Qvar 1 puff INHALATION RT-BID PRN 06/04/23 07/09/23 History 80mcg Redihaler] Dapagliflozin Propanediol [Farxiga] 10 mg PO DAILY 06/04/23 07/09/23 History EPINEPHrine (Auto Inject) [Epipen] 0.3 mg IM ONCE PRN 06/04/23 07/09/23 History Ipratropium-Albuterol Nebulize 3 ml INHALATION RT-Q4H PRN 06/04/23 07/09/23 History [Duoneb 0.5 mg-3 mg/3 ml Soln] Magnesium Oxide [Magox 400] 800 mg PO DAILY 06/04/23 07/09/23 History Pregabalin [Lyrica] 50 mg PO HS 06/04/23 07/09/23 History Tirzepatide [Mounjaro] 10 mg SQ WE 06/04/23 07/09/23 History Warfarin [Coumadin] 7.5 mg PO TUSA@2100 06/04/23 07/09/23 History Metoprolol Tartrate [Lopressor] 100 mg PO BID 07/09/23 07/09/23 History Allergies Allergy/AdvReac Type Severity Reaction Status Date / Time No Known Allergies Allergy Verified 07/09/23 17:52 Physical Exam Vitals: Vital Signs Temp Pulse Resp BP Pulse Ox 07/10/23 11:38 114 H 104/91 95 07/10/23 09:00 111 H 20 121/92 97 07/10/23 08:43 120 H 20 108/87 94 L 07/10/23 04:06 106 H 18 101/66 99 07/09/23 17:30 16 07/09/23 17:15 98.6 F 64 20 132/84 94 L Intake and Output 07/09/23 07/10/23 07/10/23 22:59 06:59 14:59 Other: Weight 120.202 kg Results 07/10/23 12:54 Coagulation 07/10/23 Range/Units 08:55 PT 32.2 H (10.0-12.5) sec Current Medications Generic Name Dose Route Start Last Admin Trade Name Freq PRN Reason Stop Dose Admin Albuterol/Ipratropium 3 ml 07/09/23 19:44 Ipratropium-Albuterol 3 Ml Neb INHALATION RT-Q4H PRN Shortness Of Breath Azithromycin 500 mg 07/10/23 09:00 07/10/23 09:55 Azithromycin 500 Mg Tab PO 07/12/23 09:01 500 mg DAILY ADRIANA Administration Protocol Duloxetine HCl 60 mg 07/10/23 09:00 07/10/23 09:55 Duloxetine Hcl 60 Mg Capsule.Dr PO 60 mg DAILY ADRIANA Administration Ergocalciferol 1,250 mcg 07/15/23 09:00 Ergocalciferol 1,250 Mcg (50,000 Iu) Capsule PO Q14D ADRIANA Fluticasone Propionate 1 puff 07/09/23 19:44 Fluticasone 110 Mcg Inhaler INHALATION RT-BID PRN Shortness Of Breath Sodium Chloride 1,000 mls @ 20 mls/hr 07/09/23 19:45 07/09/23 19:50 Saline 0.9% IV 20 mls/hr .Q24H ADRIANA Administration Piperacillin Sod/Tazobactam 100 mls @ 25 mls/hr 07/10/23 18:00 Sod 3.375 gm/ Sodium Chloride IVPB Q8H ADRIANA Protocol Piperacillin Sod/Tazobactam 100 mls @ 25 mls/hr 07/10/23 09:50 07/10/23 10:29 Sod 3.375 gm/ Sodium Chloride IVPB 07/10/23 13:49 25 mls/hr ONCE STA Administration Protocol Vancomycin HCl 1,750 mg/ 500 mls @ 167 mls/hr 07/10/23 10:30 07/10/23 10:35 Sodium Chloride IVPB 07/10/23 13:29 167 mls/hr ONCE ONE Administration Vancomycin HCl 1,750 mg/ 500 mls @ 167 mls/hr 07/10/23 23:00 Sodium Chloride IVPB Q12H ADRIANA Magnesium Oxide 800 mg 07/10/23 09:00 07/10/23 09:56 Magnesium Oxide 400 Mg Tab PO 800 mg DAILY ADRIANA Administration Metoprolol Tartrate 100 mg 07/09/23 21:00 07/10/23 09:56 Metoprolol Tartrate 50 Mg Tab PO 100 mg BID ADRIANA Administration Miscellaneous Information 0 each 07/09/23 20:04 Warfarin Per Pharmacy MISCELLANE DIRECTED PRN AFIB Miscellaneous Information 1 each 07/10/23 09:50 Pneumonia Protocol Utilized 1 Each Misc PO ONCE PRN Per Protocol Montelukast Sodium 10 mg 07/10/23 09:00 07/10/23 09:56 Montelukast 10 Mg Tab PO 10 mg DAILY ADRIANA Administration Pantoprazole Sodium 40 mg 07/10/23 07:30 07/10/23 08:42 Pantoprazole 40 Mg Tablet PO 40 mg DAILY@0730 ADRIANA Administration Pravastatin Sodium 40 mg 07/09/23 21:00 07/09/23 20:41 Pravastatin Sodium 40 Mg Tab PO 40 mg HS ADRIANA Administration Pregabalin 50 mg 07/09/23 21:00 07/09/23 20:41 Pregabalin 50 Mg Cap PO 50 mg HS ADRIANA Administration Pyridoxine HCl 100 mg 07/10/23 09:00 07/10/23 11:35 Pyridoxine 50 Mg Tab PO 100 mg DAILY ADRIANA Administration Trazodone HCl 100 mg 07/09/23 21:00 07/09/23 20:42 Trazodone Hcl 100 Mg Tab PO 100 mg HS ADRIANA Administration Warfarin Sodium 0 mg 07/10/23 18:00 Warfarin 0.5 Mg Tab PO 07/10/23 18:01 ONCE@1800 ONE Intake and Output 07/09/23 07/10/23 07/10/23 22:59 06:59 14:59 Other: Weight 120.202 kg
[2023-07-10 13:58] LABS: Potassium 4.6 mmol/L (3.5-5.1)
--- NOTE | 2023-07-10 14:35 | P.HPIM ---
History of Present Illness H&P Date: 07/10/23 History of present illness; patient is a 62-year-old gentleman past medical history significant for atrial fibrillation on Coumadin, diabetes mellitus, hypertension who is a transfer from [facility] for worsening shortness of breath and generalized fatigue. Patient was in the hospital a m onth ago at which time he was found to have A-fib with RVR and pneumonia as well. Patient states for the last week he has been feeling not his usual self and was feeling more weak and tired. This weakness and feeling of tiredness progressed and he was feeling short of breath as well so he presented initially to [facility]. Patient also been complaining of cough. There was no complaint of fever or chills. Patient was worked up at [facility] found to have an elevated lactate of 3.6 and left lower lobe pneumonia. Patient was started on broad-spectrum antibiotics and transferred to our hospital REVIEW OF SYSTEMS: CONSTITUTIONAL: As mentioned above HEENT: No recent visual problems or hearing problems. Denied any sore throat. CARDIOVASCULAR: As mentioned above PULMONARY: As mentioned above GASTROINTESTINAL: No diarrhea, no nausea, no vomiting, no abdominal pain. NEUROLOGICAL: No headaches, no weakness, no numbness. HEMATOLOGICAL: Denies any bleeding or petechiae. GENITOURINARY: Denies any burning micturition, frequency, or urgency. MUSCULOSKELETAL/RHEUMATOLOGICAL: Denies any joint pain, swelling, or any muscle pain. ENDOCRINE: Denies any polyuria or polydipsia. The rest of the 14-point review of systems is negative. PHYSICAL EXAMINATION: GENERAL: The patient is alert and oriented x3, not in any acute distress. Well developed, well nourished. HEENT: Pupils are round and equally reacting to light. EOMI. No scleral icterus. No conjunctival pallor. Normocephalic, atraumatic. No pharyngeal erythema. No thyromegaly. CARDIOVASCULAR: S1 and S2 present. No murmurs, rubs, or gallops. PULMONARY: Chest is clear to auscultation, no wheezing or crackles. ABDOMEN: Soft, nontender, nondistended, normoactive bowel sounds. No palpable organomegaly. MUSCULOSKELETAL: No joint swelling or deformity. EXTREMITIES: No cyanosis, clubbing, or pedal edema. NEUROLOGICAL: Gross neurological examination did not reveal any focal deficits. SKIN: No rashes. Assessment and plan Bacterial pneumonia Acute hypoxic respiratory failure Persistent atrial fibrillation Hypertension Diabetes mellitus Hyperlipidemia GERD Monitor vital signs Monitor CBC Monitor CMP Continue telemetry monitoring Follow-up blood cultures Patient received Rocephin and azithromycin in the ER, will switch to IV Zosyn, vancomycin and azithromycin Continue breathing treatments Continue pharmacy Coumadin Resume home meds Consult ID Consult Pulmonary Labs and medication were reviewed.. Continue same treatment. Continue with symptomatic treatment. Resume home medication. Monitor labs and vitals. DVT and GI prophylaxis. Further recommendations as per clinical course of the patient Dictation was produced using [employer] dictation software. please excuse any grammatical, word or spelling errors. Past Medical History Past Medical History: Atrial Fibrillation, Asthma, CVA/TIA, Diabetes Mellitus, Deep Vein Thrombosis (DVT), GERD/Reflux, Renal Disease, Sleep Apnea/CPAP/BIPAP Additional Past Medical History / Comment(s): MARTINEZ'S ESOPHAGUS, GOUT, MULT. TIA'S, STAGE 2 KIDNEY DISEASE, CONN DISEASE History of Any Multi-Drug Resistant Organisms: None Reported Past Surgical History: Cholecystectomy, Hernia Repair Additional Past Surgical History / Comment(s): ADRENAL GLAND REMOVAL (CONN DISEASE), STAN FUNDOPLICATION, MULT. HERNIA REPAIRS, carpal tunnel Past Anesthesia/Blood Transfusion Reactions: No Reported Reaction Past Psychological History: Anxiety, Depression Smoking Status: Never smoker Past Alcohol Use History: None Reported Past Drug Use History: None Reported Medications and Allergies Home Medications Medication Instructions Recorded Confirmed Type Cyanocobalamin [Vitamin B-12] 500 mcg PO HS 02/23/23 07/09/23 History Cyclobenzaprine [Flexeril] 10 mg PO HS 02/23/23 07/09/23 History DULoxetine HCL [Cymbalta] 60 mg PO DAILY 02/23/23 07/09/23 History Ergocalciferol [Vitamin D2 (1250 1,250 mcg PO Q14D 02/23/23 07/09/23 History Mcg = 40259 Iu)] Montelukast [Singulair] 10 mg PO DAILY 02/23/23 07/09/23 History Niacin 1,000 mg PO DAILY 02/23/23 07/09/23 History Omalizumab [Xolair] 300 mg SQ Q30D 02/23/23 07/09/23 History Omeprazole [PriLOSEC] 20 mg PO DAILY 02/23/23 07/09/23 History Pravastatin Sodium [Pravachol] 40 mg PO HS 02/23/23 07/09/23 History Pyridoxine HCl (Vitamin B6) 100 mg PO DAILY 02/23/23 07/09/23 History [Vitamin B-6] Warfarin [Coumadin] 5 mg PO SUMOWETHFR@2100 02/23/23 07/09/23 History allopurinoL 100 mg PO HS 02/23/23 07/09/23 History calcitrioL 0.25 mcg PO HS 02/23/23 07/09/23 History traMADol HCL 50 mg PO TID PRN 02/23/23 07/09/23 History traZODone HCL 100 mg PO HS 02/23/23 07/09/23 History Albuterol Inhaler [Ventolin Hfa 1 - 2 puff INHALATION RT-Q6H PRN 06/04/23 History Inhaler] Beclomethasone Dipropionate [Qvar 1 puff INHALATION RT-BID PRN 06/04/23 07/09/23 History 80mcg Redihaler] Dapagliflozin Propanediol [Farxiga] 10 mg PO DAILY 06/04/23 07/09/23 History EPINEPHrine (Auto Inject) [Epipen] 0.3 mg IM ONCE PRN 06/04/23 07/09/23 History Ipratropium-Albuterol Nebulize 3 ml INHALATION RT-Q4H PRN 06/04/23 07/09/23 History [Duoneb 0.5 mg-3 mg/3 ml Soln] Magnesium Oxide [Magox 400] 800 mg PO DAILY 06/04/23 07/09/23 History Pregabalin [Lyrica] 50 mg PO HS 06/04/23 07/09/23 History Tirzepatide [Mounjaro] 10 mg SQ WE 06/04/23 07/09/23 History Warfarin [Coumadin] 7.5 mg PO TUSA@2100 06/04/23 07/09/23 History Metoprolol Tartrate [Lopressor] 100 mg PO BID 07/09/23 07/09/23 History Allergies Allergy/AdvReac Type Severity Reaction Status Date / Time No Known Allergies Allergy Verified 07/09/23 17:52 Physical Exam Vitals: Vital Signs Temp Pulse Resp BP Pulse Ox 07/10/23 09:00 111 H 20 121/92 97 07/10/23 08:43 120 H 20 108/87 94 L 07/10/23 04:06 106 H 18 101/66 99 07/09/23 17:30 16 07/09/23 17:15 98.6 F 64 20 132/84 94 L Intake and Output 07/09/23 07/10/23 07/10/23 22:59 06:59 14:59 Other: Weight 120.202 kg Results CBC & Chem 7: 07/10/23 12:54 07/10/23 12:54 Labs: Abnormal Lab Results - Last 24 Hours (Table) 07/10/23 Range/Units 08:55 PT 32.2 H (10.0-12.5) sec INR 3.3 H (<1.2)
[2023-07-10] MEDS: VERAPAMIL 40 MG TAB PO SCH (15:51)
--- NOTE | 2023-07-10 16:05 | P.CNPUL ---
History of Present Illness Consult date: 07/10/23 Requesting physician: Eve Bowden Reason for consult: dyspnea Chief complaint: Shortness of breath, palpitations History of present illness: This is a 62-year-old male patient who has a history of atrial fibrillation anticoagulated with warfarin continued on Xolair, chronic bronchial asthma, di abetes mellitus, hyperlipidemia, DVT. He had presented to [facility] with complaints of increasing shortness of breath, dry cough, palpitations and was found to be in atrial fibrillation with rapid ventricular response. He was transferred here for further treatment. Chest x-ray reveals cardiomegaly. There is a large area of consolidation in the left lower lobe with small effusion. White count 12.3. Hemoglobin 16.5. Platelets 550. INR 3.3. Sodium 136. Potassium 4.6. Bicarb 21. BUN 29. Creatinine 0.83. AST 160. ALT 90. He is seen today in consultation in the emergency department. He is currently sitting up on a stretcher. Awake and alert in no acute distress. He is maintaining O2 saturations in the 90s on 3 L/min per nasal cannula. He has been initiated on bronchodilators. Antibiotics in the form of Zosyn and azithromycin. Review of Systems REVIEW OF SYSTEMS: CONSTITUTIONAL: Denies any recent significant weight loss or weight gain. EYES: Denies change in vision. EARS, NOSE, MOUTH, THROAT: Denies headaches, denies sore throat. CARDIOVASCULAR: Denies chest pain, positive for palpitations no syncopal episodes. RESPIRATORY: Positive for shortness of breath, cough, congestion no hemoptysis. GASTROINTESTINAL: Denies change in appetite, denies abdominal pain GENITOURINARY: Denies hematuria, denies infections. MUSKULOSKELETAL: Denies pain, denies swelling. INTEGUMENTARY: Denies rash, denies eczema. NEUROLOGICAL: Denies recent memory loss, no recent seizure activity. PSYCHIATRIC: Denies anxiety, denies depression. HEMATOLOGIC/LYMPHATIC: Denies anemia, denies enlarged lymph nodes. Past Medical History Past Medical History: Atrial Fibrillation, Asthma, CVA/TIA, Diabetes Mellitus, Deep Vein Thrombosis (DVT), GERD/Reflux, Renal Disease, Sleep Apnea/CPAP/BIPAP Additional Past Medical History / Comment(s): MARTINEZ'S ESOPHAGUS, GOUT, MULT. TIA'S, STAGE 2 KIDNEY DISEASE, CONN DISEASE History of Any Multi-Drug Resistant Organisms: None Reported Past Surgical History: Cholecystectomy, Hernia Repair Additional Past Surgical History / Comment(s): ADRENAL GLAND REMOVAL (CONN DISEASE), STAN FUNDOPLICATION, MULT. HERNIA REPAIRS, carpal tunnel Past Anesthesia/Blood Transfusion Reactions: No Reported Reaction Past Psychological History: Anxiety, Depression Smoking Status: Never smoker Past Alcohol Use History: None Reported Past Drug Use History: None Reported Medications and Allergies Home Medications Medication Instructions Recorded Confirmed Type Cyanocobalamin [Vitamin B-12] 500 mcg PO HS 02/23/23 07/09/23 History Cyclobenzaprine [Flexeril] 10 mg PO HS 02/23/23 07/09/23 History DULoxetine HCL [Cymbalta] 60 mg PO DAILY 02/23/23 07/09/23 History Ergocalciferol [Vitamin D2 (1250 1,250 mcg PO Q14D 02/23/23 07/09/23 History Mcg = [id number] Iu)] Montelukast [Singulair] 10 mg PO DAILY 02/23/23 07/09/23 History Niacin 1,000 mg PO DAILY 02/23/23 07/09/23 History Omalizumab [Xolair] 300 mg SQ Q30D 02/23/23 07/09/23 History Omeprazole [PriLOSEC] 20 mg PO DAILY 02/23/23 07/09/23 History Pravastatin Sodium [Pravachol] 40 mg PO HS 02/23/23 07/09/23 History Pyridoxine HCl (Vitamin B6) 100 mg PO DAILY 02/23/23 07/09/23 History [Vitamin B-6] Warfarin [Coumadin] 5 mg PO SUMOWETHFR@2100 02/23/23 07/09/23 History allopurinoL 100 mg PO HS 02/23/23 07/09/23 History calcitrioL 0.25 mcg PO HS 02/23/23 07/09/23 History traMADol HCL 50 mg PO TID PRN 02/23/23 07/09/23 History traZODone HCL 100 mg PO HS 02/23/23 07/09/23 History Albuterol Inhaler [Ventolin Hfa 1 - 2 puff INHALATION RT-Q6H PRN 06/04/23 07/09/23 History Inhaler] Beclomethasone Dipropionate [Qvar 1 puff INHALATION RT-BID PRN 06/04/23 07/09/23 History 80mcg Redihaler] Dapagliflozin Propanediol [Farxiga] 10 mg PO DAILY 06/04/23 07/09/23 History EPINEPHrine (Auto Inject) [Epipen] 0.3 mg IM ONCE PRN 06/04/23 07/09/23 History Ipratropium-Albuterol Nebulize 3 ml INHALATION RT-Q4H PRN 06/04/23 07/09/23 History [Duoneb 0.5 mg-3 mg/3 ml Soln] Magnesium Oxide [Magox 400] 800 mg PO DAILY 06/04/23 07/09/23 History Pregabalin [Lyrica] 50 mg PO HS 06/04/23 07/09/23 History Tirzepatide [Mounjaro] 10 mg SQ WE 06/04/23 07/09/23 History Warfarin [Coumadin] 7.5 mg PO TUSA@2100 06/04/23 07/09/23 History Metoprolol Tartrate [Lopressor] 100 mg PO BID 07/09/23 07/09/23 History Allergies Allergy/AdvReac Type Severity Reaction Status Date / Time No Known Allergies Allergy Verified 07/09/23 17:52 Physical Exam Vitals: Vital Signs Temp Pulse Resp BP Pulse Ox FiO2 07/10/23 15:51 94 18 115/96 96 07/10/23 14:00 111 H 19 114/98 98 3 07/10/23 13:00 105 H 20 114/91 96 3 07/10/23 11:38 114 H 104/91 95 07/10/23 09:00 111 H 20 121/92 97 07/10/23 08:43 120 H 20 108/87 94 L 07/10/23 04:06 106 H 18 101/66 99 07/09/23 17:30 16 07/09/23 17:15 98.6 F 64 20 132/84 94 L GENERAL EXAM: Alert, 62-year-old male, on 3 L nasal cannula, fairly comfortable in no apparent distress. HEAD: Normocephalic. EYES: Normal reaction of pupils, equal size. NOSE: Clear with pink turbinates. THROAT: No erythema or exudates. NECK: No masses, no JVD. CHEST: No chest wall deformity. LUNGS: Equal air entry with crackles diminished left lung base. CVS: S1 and S2 normal with no audible murmur, irregular rhythm. ABDOMEN: No hepatosplenomegaly, normal bowel sounds, no guarding or rigidity. SPINE: No scoliosis or deformity SKIN: No rashes CENTRAL NERVOUS SYSTEM: No focal deficits, tone is normal in all 4 extremities. EXTREMITIES: There is no peripheral edema. No clubbing, no cyanosis. Peripheral pulses are intact. Results - Laboratory Findings CBC and BMP: 07/10/23 12:54 07/10/23 12:54 PT/INR, D-dimer PT 32.2 sec (10.0-12.5) H 07/10/23 08:55 INR 3.3 (<1.2) H 07/10/23 08:55 Abnormal lab findings: Abnormal Labs 07/10/23 07/10/23 07/10/23 08:55 12:54 12:54 WBC 12.3 H Hct 53.9 H MCHC 30.6 L Plt Count 550 H Neutrophils # 9.9 H PT 32.2 H INR 3.3 H Sodium 136 L Carbon Dioxide 21 L BUN 29 H Glucose 124 H AST 160 H ALT 90 H Alkaline Phosphatase 136 H Albumin 2.9 L - Diagnostic Findings Chest x-ray: image reviewed Assessment and Plan Assessment: Acute hypoxic respiratory failure secondary to an acute left lower lobe infil trate/effusion Chronic atrial fibrillation anticoagulated with warfarin History of mild intermittent chronic bronchial asthma maintained on Xolair, Singulair, bronchodilators Hyperlipidemia Hypertension Anxiety/depression Diabetes mellitus Lifelong non-smoker Plan: The patient was seen and evaluated Chest x-ray, labs and medications reviewed Obtain an ultrasound of the left chest Titrate the FiO2 as tolerated Continue antibiotics for now Check a procalcitonin Continue bronchodilators We will continue to follow and make further recommendations based on his clinical status I have personally seen and examined the patient, performed the documentation and the assessment and plan as written. Number of minutes spent on the visit: 20.
[2023-07-10 16:42] LABS: Glucose,Whole Blood 105 mg/dL (70-110)
[2023-07-10] MEDS: WARFARIN 0.5 MG TAB PO ONE (17:16)
[2023-07-10] MEDS: PIPERACILLIN-TAZOBACTAM 3.375 GM in SODIUM CHLORIDE 0.9% 100 ML IVPB SCH (17:17)
[2023-07-10 20:03] LABS: Glucose,Whole Blood 137 mg/dL (70-110)
[2023-07-10] MEDS ORDERED: VANCOMYCIN 1,750 MG in SODIUM CHLORIDE 0.9% 500 ML 500 ML IVPB SCH (22:00)
--- NOTE | 2023-07-10 23:17 | P.CONS ---
History of Present Illness - Reason for Consult Consult date: 07/10/23 Recurrent pneumonias Requesting physician: Deacon Bustillos - Chief Complaint Shortness of breath and cough x few days - History of Present Illness Patient is a 62-year-old male with a past medical history significant for atrial fibrillation diabetes mellitus DVT CVA TIA patient has been brought into the hospital as a transfer from [facility] where the patient was initially brought in for generalized weakness and fatigue and this patient symptom has been getting worse for the last few days patient also complaining of cough which has been mild to moderate intensity but not bring up any sputum patient has been diagnosed with left lower lobe pneumonia he did have elevated lactic acid elevated white count patient received Rocephin and Zithromax subsequently transferred to [facility] for further evaluation apparently patient mention this is his third episode of pneumonia since the beginning of this year patient denies having any headache or URI symptoms he did have a cough mild to moderate intensity not bring up any sputum patient denies having any choking on the food no nausea no vomiting no abdominal pain or any diarrhea on presentation to the hospital patient was afebrile patient was tachycardic but not hypotensive he was hypoxic currently on 3 L nasal cannula oxygen he did have a white count of 12.3 with a left shift creatinine has been normal liver enzymes mildly elevated patient was started on vancomycin and Zosyn infectious disease consulted for further management of antibiotic therapy Review of Systems Positive point and negatives has been mentioned in the HPI, complete review of systems was performed and all other systems are negative Past Medical History Past Medical History: Atrial Fibrillation, Asthma, CVA/TIA, Diabetes Mellitus, Deep Vein Thrombosis (DVT), GERD/Reflux, Renal Disease, Sleep Apnea/CPAP/BIPAP Additional Past Medical History / Comment(s): MARTINEZ'S ESOPHAGUS, GOUT, MULT. TIA'S, STAGE 2 KIDNEY DISEASE, CONN DISEASE History of Any Multi-Drug Resistant Organisms: None Reported Past Surgical History: Cholecystectomy, Hernia Repair Additional Past Surgical History / Comment(s): ADRENAL GLAND REMOVAL (CONN DISEASE), STAN FUNDOPLICATION, MULT. HERNIA REPAIRS, carpal tunnel Past Anesthesia/Blood Transfusion Reactions: No Reported Reaction Past Psychological History: Anxiety, Depression Smoking Status: Never smoker Past Alcohol Use History: None Reported Past Drug Use History: None Reported Medications and Allergies Home Medications Medication Instructions Recorded Confirmed Type Cyanocobalamin [Vitamin B-12] 500 mcg PO HS 11/13/23 03/28/24 History Cyclobenzaprine [Flexeril] 10 mg PO HS 02/23/23 07/09/23 History DULoxetine HCL [Cymbalta] 60 mg PO DAILY 02/23/23 07/09/23 History Ergocalciferol [Vitamin D2 (1250 1,250 mcg PO Q14D 02/23/23 07/09/23 History Mcg = [id number] Iu)] Montelukast [Singulair] 10 mg PO DAILY 02/23/23 07/09/23 History Niacin 1,000 mg PO DAILY 02/23/23 07/09/23 History Omalizumab [Xolair] 300 mg SQ Q30D 02/23/23 07/09/23 History Omeprazole [PriLOSEC] 20 mg PO DAILY 02/23/23 07/09/23 History Pravastatin Sodium [Pravachol] 40 mg PO HS 02/23/23 07/09/23 History Pyridoxine HCl (Vitamin B6) 100 mg PO DAILY 02/23/23 07/09/23 History [Vitamin B-6] Warfarin [Coumadin] 5 mg PO SUMOWETHFR@2100 02/23/23 07/09/23 History allopurinoL 100 mg PO HS 02/23/23 07/09/23 History calcitrioL 0.25 mcg PO HS 02/23/23 07/09/23 History traMADol HCL 50 mg PO TID PRN 02/23/23 07/09/23 History traZODone HCL 100 mg PO HS 02/23/23 07/09/23 History Albuterol Inhaler [Ventolin Hfa 1 - 2 puff INHALATION RT-Q6H PRN 06/04/23 07/09/23 History Inhaler] Beclomethasone Dipropionate [Qvar 1 puff INHALATION RT-BID PRN 06/04/23 07/09/23 History 80mcg Redihaler] Dapagliflozin Propanediol [Farxiga] 10 mg PO DAILY 06/04/23 07/09/23 History EPINEPHrine (Auto Inject) [Epipen] 0.3 mg IM ONCE PRN 06/04/23 07/09/23 History Ipratropium-Albuterol Nebulize 3 ml INHALATION RT-Q4H PRN 06/04/23 07/09/23 History [Duoneb 0.5 mg-3 mg/3 ml Soln] Magnesium Oxide [Magox 400] 800 mg PO DAILY 06/04/23 07/09/23 History Pregabalin [Lyrica] 50 mg PO HS 06/04/23 07/09/23 History Tirzepatide [Mounjaro] 10 mg SQ WE 06/04/23 07/09/23 History Warfarin [Coumadin] 7.5 mg PO TUSA@2100 06/04/23 07/09/23 History Metoprolol Tartrate [Lopressor] 100 mg PO BID 07/09/23 07/09/23 History Verapamil [Isoptin] 40 mg PO BID #30 tab 07/14/23 Rx cefUROXime axetiL [Ceftin] 500 mg PO BID 7 Days #14 tab 07/14/23 Rx Allergies Allergy/AdvReac Type Severity Reaction Status Date / Time No Known Allergies Allergy Verified 07/09/23 17:52 Physical Exam Vitals: Vital Signs Temp Pulse Resp BP Pulse Ox 07/10/23 11:38 114 H 104/91 95 07/10/23 09:00 111 H 20 121/92 97 07/10/23 08:43 120 H 20 108/87 94 L 07/10/23 04:06 106 H 18 101/66 99 07/09/23 17:30 16 07/09/23 17:15 98.6 F 64 20 132/84 94 L Intake and Output 07/09/23 07/10/23 07/10/23 22:59 06:59 14:59 Other: Weight 120.202 kg GENERAL DESCRIPTION: Middle-aged male lying in bed, no distress. No tachypnea or accessory muscle of respiration use. HEENT: Shows Pallor , no scleral icterus. Oral mucous membrane is dry. No pharyngeal erythema or thrush NECK: Trachea central, no thyromegaly. LUNGS: Unlabored breathing. Coarse breath sounds bilaterally HEART: S1, S2, regular rate and rhythm. No loud murmur ABDOMEN: Soft, no tenderness , guarding or rigidity, no organomegaly EXTREMITIES: No edema of feet. SKIN: No rash, no masses palpable. NEUROLOGICAL: The patient is awake, alert, oriented x3, mood and affect normal. Results CBC & Chem 7: 07/13/23 06:51 07/13/23 06:51 Labs: Abnormal Lab Results - Last 24 Hours (Table) 07/10/23 Range/Units 08:55 PT 32.2 H (10.0-12.5) sec INR 3.3 H (<1.2) Assessment and Plan (1) Pneumonia Current Visit: Yes Status: Acute Code(s): J18.9 - PNEUMONIA, UNSPECIFIED ORGANISM SNOMED Code(s): 711652277 Plan: 1patient presented hospital with sepsis in this patient who did have a elevated white count mild tachycardia, source of the left lower lobe pneumonia in this patient reporting repeated pneumonia for the last few months question of aspiration etiology less likely immunodeficiency 2-we will try to obtain a sputum for Gram stain culture check a CRP procalcitonin level and we will also check his immunoglobulins level 3-continue with Zosyn 3.375 g every 8 hours however discontinue vancomycin to decrease risk of nephrotoxicity We will follow on clinical condition and cultures to further adjust medication if needed Thank you for this consultation we will follow the patient along with you Dictation was produced using [employer] dictation software. please excuse any gramma tical, word or spelling errors. Time with Patient: Greater than 30
[2023-07-11 06:06] LABS: Glucose,Whole Blood 122 mg/dL (70-110)
[2023-07-11 10:06] LABS: ALT 110 U/L (4-49); AST 112 U/L (17-59); African American GFR (CKD) >90 (>60 ml/min/1.73 sqM); Albumin 2.7 g/dL (3.5-5.0); Alkaline Phosphatase 149 U/L (38-126); Anion Gap 9 mmol/L; Blood Urea Nitrogen 25 mg/dL (9-20); Calcium 8.5 mg/dL (8.4-10.2); Carbon Dioxide 24 mmol/L (22-30); Chloride 103 mmol/L (98-107); Glucose 161 mg/dL (74-99); Non-African American GFR(CKD) 89 (>60 ml/min/1.73 sqM); Potassium 4.3 mmol/L (3.5-5.1); Sodium 136 mmol/L (137-145); Total Bilirubin 0.8 mg/dL (0.2-1.3); Total Protein 5.8 g/dL (6.3-8.2)
[2023-07-11 10:16] LABS: INR 2.3 (<1.2); Prothrombin Time 22.8 sec (10.0-12.5)
[2023-07-11 10:26] LABS: HCT 52.4 % (39.0-53.0); HGB 15.8 gm/dL (13.0-17.5); Hypochromasia Moderate; Lymphocytes % (A) 8 %; MCH 30.4 pg (25.0-35.0); MCHC 30.2 g/dL (31.0-37.0); MCV 100.7 fL (80.0-100.0); Macrocytosis Slight; Mean Platelet Volume 8.2; Neutrophils % (A) 82 %; Platelet Count 442 k/uL (150-450); RBC 5.21 m/uL (4.30-5.90); RDW 14.9 % (11.5-15.5); WBC 9.1 k/uL (3.8-10.6)
[2023-07-11 10:27] LABS: Basophils # (A) 0.1 k/uL (0-0.2); Basophils % (A) 1 %; Eosinophils # (A) 0.1 k/uL (0-0.7); Eosinophils % (A) 2 %; Lymphocytes # (A) 0.7 k/uL (1.0-4.8); Monocytes # (A) 0.6 k/uL (0-1.0); Monocytes % (A) 7 %; Neutrophils # (A) 7.5 k/uL (1.3-7.7)
[2023-07-11 11:33] LABS: Glucose,Whole Blood 122 mg/dL (70-110)
--- NOTE | 2023-07-11 13:32 | P.PN ---
Subjective Progress Note Date: 07/11/23 Principal diagnosis: Acute hypoxic respiratory failure secondary to left lower lobe pneumonia and left parapneumonic pleural effusion This is a 62-year-old male patient who has a history of atrial fibrillation anticoagulated with warfarin continued on Xolair, chronic bronchial asthma, diabetes mellitus, hyperlipidemia, DVT. He had presented to [facility] with complaints of increasing shortness of breath, dry cough, palpitations and was found to be in atrial fibrillation with rapid ventricular response. He was transferred here for further treatment. Chest x-ray reveals cardiomegaly. There is a large area of consolidation in the left lower lobe with small effusion. White count 12.3. Hemoglobin 16.5. Platelets 550. INR 3.3. Sodium 136. Potassium 4.6. Bicarb 21. BUN 29. Creatinine 0.83. AST 160. ALT 90. He is seen today in consultation in the emergency department. He is currently sitting up on a stretcher. Awake and alert in no acute distress. He is maintaining O2 saturations in the 90s on 3 L/min per nasal cannula. He has been initiated on bronchodilators. Antibiotics in the form of Zosyn and azithromycin. Patient was reevaluated today on 07/11/23, patient is feeling better, breathing easier, hardly any cough no wheezing no shortness of breath no chest pain. Remains on 2 L nasal cannula, O2 sats is 98% ultrasound of the chest to evaluate the left pleural effusion showed a 4.3 cm pocket, this is not large enough to consider safe thoracentesis. Has no plan to perform thoracentesis at this point. The recommendation is to continue medical therapy. Procalcitonin level is elevated consistent with left lower lobe pneumonia, patient remains on antibiotics including Zosyn and ZithromaxWBC count today is coming down to 9.1, hemoglobin 15.8, INR 2.3 basic metabolic profile is normal renal profile is normal Objective - Vital Signs Vital signs: Vital Signs Temp 98.2 F 07/11/23 11:52 Pulse 82 07/11/23 11:52 Resp 18 07/11/23 11:52 BP 107/73 07/11/23 11:52 Pulse Ox 98 07/11/23 11:52 FiO2 3 07/10/23 14:00 Intake & Output 07/10/23 07/11/23 07/11/23 18:59 06:59 18:59 Intake Total 1030 10 340 Output Total 400 Balance 1030 -390 340 Weight 120.202 kg Intake: IV 10 10 Invasive Line 1 10 10 Intake, IV Titration 840 Amount Piperacillin-Tazobactam 3 100 .375 gm In Sodium Chloride 0.9% 100 ml @ 25 mls/hr IVPB Q8H [facility] Rx#: [id number] Sodium Chloride 0.9% 1, 240 000 ml @ 20 mls/hr IV . Q24H [facility] Rx#:[id number] Vancomycin 1,750 mg In 500 Sodium Chloride 0.9% 500 ml 500 ml @ 167 mls/hr IVPB Q12H [facility] Rx#: [id number] Oral 180 340 Output: Urine 400 Other: Voiding Method Urinal Urinal Urinal # Voids 2 # Bowel Movements 0 - Exam GENERAL EXAM: Reveals 62-year-old white male obese in no distress HEAD: Normocephalic. EYES: Normal reaction of pupils, equal size. NOSE: Clear with pink turbinates. THROAT: No erythema or exudates. NECK: No masses, no JVD. CHEST: No chest wall deformity. LUNGS: Diminished breath sounds at the left base no crackles rhonchi or wheezes CVS: S1 and S2 normal with no audible murmur, irregular rhythm. ABDOMEN: No hepatosplenomegaly, normal bowel sounds, no guarding or rigidity. SKIN: No rashes CENTRAL NERVOUS SYSTEM: Alert oriented x 3 no gross focal deficit EXTREMITIES: No clubbing edema or cyanosis - Labs CBC & Chem 7: 07/11/23 09:20 07/11/23 09:20 Labs: Abnormal Lab Results - Last 24 Hours (Table) 07/10/23 07/10/23 07/10/23 Range/Units 12:54 12:54 20:02 MCV (80.0-100.0) fL MCHC (31.0-37.0) g/dL Lymphocytes # (1.0-4.8) k/uL PT (10.0-12.5) sec INR (<1.2) Sodium 136 L (137-145) mmol/L Carbon Dioxide 21 L (22-30) mmol/L BUN 29 H (9-20) mg/dL Glucose 124 H (74-99) mg/dL POC Glucose (mg/dL) 137 H (70-110) mg/dL AST 160 H (17-59) U/L ALT 90 H (4-49) U/L Alkaline Phosphatase 136 H (38-126) U/L Total Protein (6.3-8.2) g/dL Albumin 2.9 L (3.5-5.0) g/dL Procalcitonin 0.83 H (0.02-0.09) ng/mL 07/11/23 07/11/23 07/11/23 Range/Units 06:05 09:20 09:20 MCV 100.7 H (80.0-100.0) fL MCHC 30.2 L (31.0-37.0) g/dL Lymphocytes # 0.7 L (1.0-4.8) k/uL PT (10.0-12.5) sec INR (<1.2) Sodium 136 L (137-145) mmol/L Carbon Dioxide (22-30) mmol/L BUN 25 H (9-20) mg/dL Glucose 161 H (74-99) mg/dL POC Glucose (mg/dL) 122 H (70-110) mg/dL AST 112 H (17-59) U/L ALT 110 H (4-49) U/L Alkaline Phosphatase 149 H (38-126) U/L Total Protein 5.8 L (6.3-8.2) g/dL Albumin 2.7 L (3.5-5.0) g/dL Procalcitonin (0.02-0.09) ng/mL 07/11/23 07/11/23 Range/Units 09:20 11:32 MCV (80.0-100.0) fL MCHC (31.0-37.0) g/dL Lymphocytes # (1.0-4.8) k/uL PT 22.8 H (10.0-12.5) sec INR 2.3 H (<1.2) Sodium (137-145) mmol/L Carbon Dioxide (22-30) mmol/L BUN (9-20) mg/dL Glucose (74-99) mg/dL POC Glucose (mg/dL) 122 H (70-110) mg/dL AST (17-59) U/L ALT (4-49) U/L Alkaline Phosphatase (38-126) U/L Total Protein (6.3-8.2) g/dL Albumin (3.5-5.0) g/dL Procalcitonin (0.02-0.09) ng/mL Assessment and Plan Assessment: Impression: Acute hypoxic respiratory failure secondary to an acute left lower lobe infiltrate/effusion Chronic atrial fibrillation anticoagulated with warfarin History of mild intermittent chronic bronchial asthma maintained on Xolair, Sing ulair, bronchodilators Hyperlipidemia Hypertension Anxiety/depression Diabetes mellitus Lifelong non-smoker Recommendation: Continue antibiotics Titrate FiO2 accordingly may even may not even require home oxygen Procalcitonin level is noted to be elevated Continue bronchodilators Reviewed the results of the ultrasound of the chest no need for thoracentesis the pocket is too small to consider safe thoracentesis Will continue to follow Time with Patient: Less than 30
--- NOTE | 2023-07-11 14:28 | P.PN ---
Subjective Progress Note Date: 07/11/23 patient is a 62-year-old gentleman past medical history significant for atrial fibrillation on Coumadin, diabetes mellitus, hypertension who is a transfer from [facility] for worsening shortness of breath and generalized fatigue. Patient was in the hospital a month ago at which time he was found to have A- fib with RVR and pneumonia as well. Patient states for the last week he has been feeling not his usual self and was feeling more weak and tired. This weakness and feeling of tiredness progressed and he was feeling short of breath as well so he presented initially to [facility]. Patient also been complaining of cough. There was no complaint of fever or chills. Patient was worked up at [facility] found to have an elevated lactate of 3.6 and left lower lobe pneumonia. Patient was started on broad-spectrum antibiotics and transferred to our hospital 07/10. Patient seen and examined. States breathing has improved. Blood work done showed WBC 9.1, hemoglobin 15.8, platelet count 442, sodium 136, potassium 4.3, BUN 25, creatinine 0.92. No fever or chills REVIEW OF SYSTEMS: CONSTITUTIONAL: No fever, no malaise,. CARDIOVASCULAR: No chest pain, no palpitations, no syncope. PULMONARY: No shortness of breath, no cough, GASTROINTESTINAL: No diarrhea, no nausea, no vomiting, no abdominal pain. NEUROLOGICAL: No headaches, no weakness, PHYSICAL EXAMINATION: GENERAL: The patient is alert and oriented x3, not in any acute distress. Well developed, well nourished. HEENT: Pupils are round and equally reacting to light. EOMI. No scleral icterus. No conjunctival pallor. Normocephalic, atraumatic. No pharyngeal erythema. No thyromegaly. CARDIOVASCULAR: S1 and S2 present. No murmurs, rubs, or gallops. PULMONARY: Diminished breath sounds at the bases bilaterally, no wheezing or crackles. ABDOMEN: Soft, nontender, nondistended, normoactive bowel sounds. No palpable organomegaly. MUSCULOSKELETAL: No joint swelling or deformity. EXTREMITIES: No cyanosis, clubbing, or pedal edema. NEUROLOGICAL: Gross neurological examination did not reveal any focal deficits. SKIN: No rashes. Assessment and plan Bacterial pneumonia Acute hypoxic respiratory failure Persistent atrial fibrillation Hypertension Diabetes mellitus Hyperlipidemia GERD Monitor vital signs Monitor CBC Monitor CMP Continue telemetry monitoring Continue oxygen supplementation aggressive bronchopulmonary hygiene Encourage use of I-S Follow-up blood cultures Continue IV Zosyn and azithromycin Continue breathing treatments Continue pharmacy Coumadin ID following Cardiology following, added verapamil Pulmonology following Labs and medication were reviewed.. Continue same treatment. Continue with symptomatic treatment. Resume home medication. Monitor labs and vitals. DVT and GI prophylaxis. Further recommendations as per clinical course of the patient Dictation was produced using [employer] dictation software. please excuse any grammatical, word or spelling errors. Objective - Vital Signs Vital signs: Vital Signs Temp 98.2 F 07/11/23 11:52 Pulse 82 07/11/23 11:52 Resp 18 07/11/23 11:52 BP 107/73 07/11/23 11:52 Pulse Ox 98 07/11/23 11:52 FiO2 3 07/10/23 14:00 Intake & Output 07/10/23 07/11/23 07/11/23 18:59 06:59 18:59 Intake Total 1030 10 340 Output Total 400 Balance 1030 -390 340 Weight 120.202 kg Intake: IV 10 10 Invasive Line 1 10 10 Intake, IV Titration 840 Amount Piperacillin-Tazobactam 3 100 .375 gm In Sodium Chloride 0.9% 100 ml @ 25 mls/hr IVPB Q8H [facility] Rx#: [id number] Sodium Chloride 0.9% 1, 240 000 ml @ 20 mls/hr IV . Q24H [facility] Rx#:[id number] Vancomycin 1,750 mg In 500 Sodium Chloride 0.9% 500 ml 500 ml @ 167 mls/hr IVPB Q12H [facility] Rx#: [id number] Oral 180 340 Output: Urine 400 Other: Voiding Method Urinal Urinal Urinal # Voids 2 # Bowel Movements 0 - Labs CBC & Chem 7: 07/11/23 09:20 07/11/23 09:20 Labs: Abnormal Lab Results - Last 24 Hours (Table) 07/10/23 07/10/23 07/11/23 Range/Units 12:54 20:02 06:05 MCV (80.0-100.0) fL MCHC (31.0-37.0) g/dL Lymphocytes # (1.0-4.8) k/uL PT (10.0-12.5) sec INR (<1.2) Sodium (137-145) mmol/L BUN (9-20) mg/dL Glucose (74-99) mg/dL POC Glucose (mg/dL) 137 H 122 H (70-110) mg/dL AST (17-59) U/L ALT (4-49) U/L Alkaline Phosphatase (38-126) U/L Total Protein (6.3-8.2) g/dL Albumin (3.5-5.0) g/dL Procalcitonin 0.83 H (0.02-0.09) ng/mL 07/11/23 07/11/23 07/11/23 Range/Units 09:20 09:20 09:20 MCV 100.7 H (80.0-100.0) fL MCHC 30.2 L (31.0-37.0) g/dL Lymphocytes # 0.7 L (1.0-4.8) k/uL PT 22.8 H (10.0-12.5) sec INR 2.3 H (<1.2) Sodium 136 L (137-145) mmol/L BUN 25 H (9-20) mg/dL Glucose 161 H (74-99) mg/dL POC Glucose (mg/dL) (70-110) mg/dL AST 112 H (17-59) U/L ALT 110 H (4-49) U/L Alkaline Phosphatase 149 H (38-126) U/L Total Protein 5.8 L (6.3-8.2) g/dL Albumin 2.7 L (3.5-5.0) g/dL Procalcitonin (0.02-0.09) ng/mL 07/11/23 Range/Units 11:32 MCV (80.0-100.0) fL MCHC (31.0-37.0) g/dL Lymphocytes # (1.0-4.8) k/uL PT (10.0-12.5) sec INR (<1.2) Sodium (137-145) mmol/L BUN (9-20) mg/dL Glucose (74-99) mg/dL POC Glucose (mg/dL) 122 H (70-110) mg/dL AST (17-59) U/L ALT (4-49) U/L Alkaline Phosphatase (38-126) U/L Total Protein (6.3-8.2) g/dL Albumin (3.5-5.0) g/dL Procalcitonin (0.02-0.09) ng/mL
--- NOTE | 2023-07-11 16:04 | P.PN ---
Subjective Progress Note Date: 07/11/23 Principal diagnosis: Reason for follow-up is sepsis on admission and pneumonia Patient is a 62-year-old male with a past medical history significant for atrial fibrillation diabetes mellitus DVT CVA TIA patient has been brought into the hospital as a transfer from [facility] where the patient was initially brought in for generalized weakness and fatigue, patient be diagnosed with sepsis related to pneumonia prompting this consultation. On today's evaluation that is 07/11/2023,the patient denies any fever or any chills, patient is breathing comfortably on 2 L nasal cannula oxygen, the patient denies chest pain shortness of breath and continues to have a cough but not bringing up any sputum, patient denies abdominal pain, no nausea vomiting or diarrhea. Patient white count normalized to 9.1, creatinine 0.92 Objective - Vital Signs Vital signs: Vital Signs Temp 97.6 F 07/11/23 15:11 Pulse 87 07/11/23 15:11 Resp 18 07/11/23 15:11 BP 114/62 07/11/23 15:11 Pulse Ox 99 07/11/23 15:11 FiO2 3 07/10/23 14:00 Intake & Output 07/10/23 07/11/23 07/11/23 18:59 06:59 18:59 Intake Total 1030 10 340 Output Total 400 Balance 1030 -390 340 Weight 120.202 kg Intake: IV 10 10 Invasive Line 1 10 10 Intake, IV Titration 840 Amount Piperacillin-Tazobactam 3 100 .375 gm In Sodium Chloride 0.9% 100 ml @ 25 mls/hr IVPB Q8H [facility] Rx#: [id number] Sodium Chloride 0.9% 1, 240 000 ml @ 20 mls/hr IV . Q24H [facility] Rx#:[id number] Vancomycin 1,750 mg In 500 Sodium Chloride 0.9% 500 ml 500 ml @ 167 mls/hr IVPB Q12H [facility] Rx#: [id number] Oral 180 340 Output: Urine 400 Other: Voiding Method Urinal Urinal Urinal # Voids 2 # Bowel Movements 0 - Exam GENERAL DESCRIPTION: Middle-age male lying in bed in no distress RESPIRATORY SYSTEM: Unlabored breathing , decreased breath sounds at bases HEART: S1 S2 regular rate and rhythm , ABDOMEN: Soft , no tenderness EXTREMITIES: No edema feet - Labs CBC & Chem 7: 07/11/23 09:20 07/11/23 09:20 Labs: Abnormal Lab Results - Last 24 Hours (Table) 07/10/23 07/10/23 07/11/23 Range/Units 12:54 20:02 06:05 MCV (80.0-100.0) fL MCHC (31.0-37.0) g/dL Lymphocytes # (1.0-4.8) k/uL PT (10.0-12.5) sec INR (<1.2) Sodium (137-145) mmol/L BUN (9-20) mg/dL Glucose (74-99) mg/dL POC Glucose (mg/dL) 137 H 122 H (70-110) mg/dL AST (17-59) U/L ALT (4-49) U/L Alkaline Phosphatase (38-126) U/L Total Protein (6.3-8.2) g/dL Albumin (3.5-5.0) g/dL Procalcitonin 0.83 H (0.02-0.09) ng/mL 07/11/23 07/11/23 07/11/23 Range/Units 09:20 09:20 09:20 MCV 100.7 H (80.0-100.0) fL MCHC 30.2 L (31.0-37.0) g/dL Lymphocytes # 0.7 L (1.0-4.8) k/uL PT 22.8 H (10.0-12.5) sec INR 2.3 H (<1.2) Sodium 136 L (137-145) mmol/L BUN 25 H (9-20) mg/dL Glucose 161 H (74-99) mg/dL POC Glucose (mg/dL) (70-110) mg/dL AST 112 H (17-59) U/L ALT 110 H (4-49) U/L Alkaline Phosphatase 149 H (38-126) U/L Total Protein 5.8 L (6.3-8.2) g/dL Albumin 2.7 L (3.5-5.0) g/dL Procalcitonin (0.02-0.09) ng/mL 07/11/23 Range/Units 11:32 MCV (80.0-100.0) fL MCHC (31.0-37.0) g/dL Lymphocytes # (1.0-4.8) k/uL PT (10.0-12.5) sec INR (<1.2) Sodium (137-145) mmol/L BUN (9-20) mg/dL Glucose (74-99) mg/dL POC Glucose (mg/dL) 122 H (70-110) mg/dL AST (17-59) U/L ALT (4-49) U/L Alkaline Phosphatase (38-126) U/L Total Protein (6.3-8.2) g/dL Albumin (3.5-5.0) g/dL Procalcitonin (0.02-0.09) ng/mL Assessment and Plan (1) Pneumonia Current Visit: Yes Status: Acute Code(s): J18.9 - PNEUMONIA, UNSPECIFIED ORGANISM SNOMED Code(s): 755540056 Plan: 1patient presented hospital with sepsis in this patient who did have a elevated white count mild tachycardia, source of the left lower lobe pneumonia in this patient reporting repeated pneumonia for the last few months question of aspiration etiology less likely immunodeficiency 2-sputum culture not obtained procalcitonin IgG level pending 3-patient to continue with Zosyn 3.375 g every 8 hours while waiting for the workup to be completed Dictation was produced using [employer] dictation software. please excuse any grammatical, word or spelling errors. Time with Patient: Less than 30
[2023-07-11 16:35] LABS: Glucose,Whole Blood 122 mg/dL (70-110)
[2023-07-11] MEDS: WARFARIN 5 MG TAB PO ONE (16:52)
[2023-07-11 20:32] LABS: Glucose,Whole Blood 96 mg/dL (70-110)
--- NOTE | 2023-07-11 20:49 | P.PN ---
Subjective Progress Note Date: 07/11/23 History of present illness: This is a 62-year-old male patient of Dr. Bahena with past medical history of pe rmanent atrial fibrillation on Coumadin, hyperlipidemia, peripheral vascular disease, gastroesophageal reflux disease. We have been asked to evaluate the patient for A-fib with RVR. Patient initially presented to [facility] due to generalized weakness and fatigue ongoing for several days with nonproductive cough. Patient was diagnosed with a left lower lobe pneumonia found to have lactic acidosis at 3.6 and leukocytosis of 15. Patient also has history of 6 teeth being extracted on Thursday. At [place], EKG was atrial fibrillation at 68 bpm. CTA of the chest revealed pleural effusions worsened over the past 6 weeks. Stable small pericardial effusion. Atelectasis versus d eveloping left lower lobe infiltrate. Patient subsequently had RVR with heart rate in the 140s was started on Cardizem drip. COVID-19, RSV and influenza testing negative. EKG atrial fibrillation at 105 bpm, telemetry atrial fibrillation 912 Chest x-ray: Cardiomegaly. Large area of consolidation left lower lobe with small effusion correlate for pneumonia. ELISSA Goldstein cardiac catheterization performed in 2005 revealed normal coronary arteries. Chest ultrasound shows small left pleural effusion. Home cardiac medications: Farxiga 10 mg daily, magnesium oxide 800 mg daily, Lopressor 100 mg twice daily, Pravachol 40 mg at bedtime, Coumadin 7.5 mg on Thursday and Thursday 5 mg on other days. Echocardiogram performed 06/06/2023 reveals LVH with preserved systolic function. Lexiscan stress test performed 09/13/2019 revealed negative Lexiscan stress test normal perfusion study. EF 65%. Progress note 07/11/2023 Patient continues to be in atrial flutter with RVR. His rates are better co ntrolled than before. Physical examination: Gen: This is a 62-year-old male in no acute distress VS: reviewed HEENT: Head is atraumatic, normocephalic. Pupils equal, round. Sclerae is anicteric. NECK: Supple. No JVD. LUNGS: Bilateral breath sounds. No intercostal retractions. HEART: Irregular rate and rhythm. No murmur. ABDOMEN: Soft No tenderness. EXTREMITIES: No pedal edema. No calf tenderness. NEUROLOGICAL: Patient is awake, alert and oriented x3. Assessment: Atrial flutter with RVR on admission. Currently better rate controlled. Pneumonia Hyperlipidemia Peripheral vascular disease Plan: Continue anticoagulation with Coumadin Continue beta-ramón and verapamil This is patient's second hospital admission with RVR. It seems like patient has history of A-fib but has never got cardioversion or ablation procedure done. This time his rhythm appears to be more of a flutter than fibrillation. Patient reports that he is not very sure if he stays in atrial fibrillation all the time. Plan for possible BAR cardioversion on Thursday for atrial flutter termination if it does not terminate spontaneously. Objective - Vital Signs Vital signs: Vital Signs Temp 98.3 F 07/11/23 19:40 Pulse 94 07/11/23 19:40 Resp 18 07/11/23 19:40 BP 110/73 07/11/23 20:32 Pulse Ox 99 07/11/23 19:40 FiO2 3 07/10/23 14:00 Intake & Output 07/11/23 07/11/23 07/12/23 06:59 18:59 06:59 Intake Total 10 798 10 Output Total 400 850 Balance -390 -52 10 Intake: IV 10 10 Invasive Line 1 10 10 Intake, IV Titration 340 Amount Piperacillin-Tazobactam 3 100 .375 gm In Sodium Chloride 0.9% 100 ml @ 25 mls/hr IVPB Q8H [facility] Rx#: [id number] Sodium Chloride 0.9% 1, 240 000 ml @ 20 mls/hr IV . Q24H [facility] Rx#:[id number] Oral 458 Output: Urine 400 850 Other: Voiding Method Urinal Urinal # Voids 2 # Bowel Movements 0 - Labs CBC & Chem 7: 07/11/23 09:20 07/11/23 09:20 Labs: Abnormal Lab Results - Last 24 Hours (Table) 07/11/23 07/11/23 07/11/23 Range/Units 06:05 09:20 09:20 MCV 100.7 H (80.0-100.0) fL MCHC 30.2 L (31.0-37.0) g/dL Lymphocytes # 0.7 L (1.0-4.8) k/uL PT (10.0-12.5) sec INR (<1.2) Sodium 136 L (137-145) mmol/L BUN 25 H (9-20) mg/dL Glucose 161 H (74-99) mg/dL POC Glucose (mg/dL) 122 H (70-110) mg/dL AST 112 H (17-59) U/L ALT 110 H (4-49) U/L Alkaline Phosphatase 149 H (38-126) U/L Total Protein 5.8 L (6.3-8.2) g/dL Albumin 2.7 L (3.5-5.0) g/dL 07/11/23 07/11/23 07/11/23 Range/Units 09:20 11:32 16:34 MCV (80.0-100.0) fL MCHC (31.0-37.0) g/dL Lymphocytes # (1.0-4.8) k/uL PT 22.8 H (10.0-12.5) sec INR 2.3 H (<1.2) Sodium (137-145) mmol/L BUN (9-20) mg/dL Glucose (74-99) mg/dL POC Glucose (mg/dL) 122 H 122 H (70-110) mg/dL AST (17-59) U/L ALT (4-49) U/L Alkaline Phosphatase (38-126) U/L Total Protein (6.3-8.2) g/dL Albumin (3.5-5.0) g/dL
[2023-07-11] MEDS ORDERED: WARFARIN 5 MG TAB PO SCH (21:00)
[2023-07-12 05:56] LABS: Glucose,Whole Blood 105 mg/dL (70-110)
--- NOTE | 2023-07-12 09:12 | P.PN ---
Subjective Progress Note Date: 07/12/23 History of present illness: This is a 62-year-old male patient of Dr. Bahena with past medical history of pe rmanent atrial fibrillation on Coumadin, hyperlipidemia, peripheral vascular disease, gastroesophageal reflux disease. We have been asked to evaluate the patient for A-fib with RVR. Patient initially presented to [facility] due to generalized weakness and fatigue ongoing for several days with nonproductive cough. Patient was diagnosed with a left lower lobe pneumonia found to have lactic acidosis at 3.6 and leukocytosis of 15. Patient also has history of 6 teeth being extracted on Thursday. At [place], EKG was atrial fibrillation at 68 bpm. CTA of the chest revealed pleural effusions worsened over the past 6 weeks. Stable small pericardial effusion. Atelectasis versus d eveloping left lower lobe infiltrate. Patient subsequently had RVR with heart rate in the 140s was started on Cardizem drip. COVID-19, RSV and influenza testing negative. EKG atrial fibrillation at 105 bpm, telemetry atrial fibrillation 912 Chest x-ray: Cardiomegaly. Large area of consolidation left lower lobe with small effusion correlate for pneumonia. ELISSA Goldstein cardiac catheterization performed in 2005 revealed normal coronary arteries. Chest ultrasound shows small left pleural effusion. Home cardiac medications: Farxiga 10 mg daily, magnesium oxide 800 mg daily, Lopressor 100 mg twice daily, Pravachol 40 mg at bedtime, Coumadin 7.5 mg on Thursday and Thursday 5 mg on other days. Echocardiogram performed 06/06/2023 reveals LVH with preserved systolic function. Lexiscan stress test performed 09/13/2019 revealed negative Lexiscan stress test normal perfusion study. EF 65%. Progress note 07/11/2023 Patient continues to be in atrial flutter with RVR. His rates are better co ntrolled than before. 07/12/2023 Patient continues to be in atrial flutter with RVR his resting heart rates are ranging from 80 to 100 bpm. He still reporting low energy. Denies any chest pain chest pressure. Reports shortness of breath has improved. Physical examination: Gen: This is a 62-year-old male in no acute distress VS: reviewed HEENT: Head is atraumatic, normocephalic. Pupils equal, round. Sclerae is anicteric. NECK: Supple. No JVD. LUNGS: Bilateral breath sounds. No intercostal retractions. HEART: Irregular rate and rhythm. No murmur. ABDOMEN: Soft No tenderness. EXTREMITIES: No pedal edema. No calf tenderness. NEUROLOGICAL: Patient is awake, alert and oriented x3. Assessment: Atrial flutter with RVR on admission. Currently better rate controlled. Pneumonia Hyperlipidemia Peripheral vascular disease Plan: Continue anticoagulation with Coumadin Continue beta-ramón and verapamil This is patient's second hospital admission with RVR. It seems like patient has history of A-fib but has never got cardioversion or ablation procedure done. This time his rhythm appears to be more of a flutter than fibrillation. Patient reports that he is not very sure if he stays in atrial fibrillation all the time or it comes and goes. Plan for possible BAR cardioversion on Thursday for atrial flutter termination if it does not terminate spontaneously. Objective - Vital Signs Vital signs: Vital Signs Temp 98.1 F 07/12/23 08:00 Pulse 94 07/12/23 08:00 Resp 18 07/12/23 08:00 BP 103/74 07/12/23 08:00 Pulse Ox 99 07/12/23 08:00 FiO2 3 07/10/23 14:00 Intake & Output 07/11/23 07/12/23 07/12/23 18:59 06:59 18:59 Intake Total 798 60 236 Output Total 850 Balance -52 60 236 Intake: IV 20 Invasive Line 1 20 Intake, IV Titration 340 Amount Piperacillin-Tazobactam 3 100 .375 gm In Sodium Chloride 0.9% 100 ml @ 25 mls/hr IVPB Q8H ADRIANA Rx#: [id number] Sodium Chloride 0.9% 1, 240 000 ml @ 20 mls/hr IV . Q24H ADRIANA Rx#:[id number] Oral 458 40 [id number] Output: Urine 850 Other: Voiding Method Urinal Urinal # Voids 2 - Labs CBC & Chem 7: 07/11/23 09:20 07/11/23 09:20 Labs: Abnormal Lab Results - Last 24 Hours (Table) 07/11/23 07/11/23 07/11/23 Range/Units 09:20 09:20 09:20 MCV 100.7 H (80.0-100.0) fL MCHC 30.2 L (31.0-37.0) g/dL Lymphocytes # 0.7 L (1.0-4.8) k/uL PT 22.8 H (10.0-12.5) sec INR 2.3 H (<1.2) Sodium 136 L (137-145) mmol/L BUN 25 H (9-20) mg/dL Glucose 161 H (74-99) mg/dL POC Glucose (mg/dL) (70-110) mg/dL AST 112 H (17-59) U/L ALT 110 H (4-49) U/L Alkaline Phosphatase 149 H (38-126) U/L Total Protein 5.8 L (6.3-8.2) g/dL Albumin 2.7 L (3.5-5.0) g/dL 07/11/23 07/11/23 Range/Units 11:32 16:34 MCV (80.0-100.0) fL MCHC (31.0-37.0) g/dL Lymphocytes # (1.0-4.8) k/uL PT (10.0-12.5) sec INR (<1.2) Sodium (137-145) mmol/L BUN (9-20) mg/dL Glucose (74-99) mg/dL POC Glucose (mg/dL) 122 H 122 H (70-110) mg/dL AST (17-59) U/L ALT (4-49) U/L Alkaline Phosphatase (38-126) U/L Total Protein (6.3-8.2) g/dL Albumin (3.5-5.0) g/dL Microbiology - Last 24 Hours (Table) 07/10/23 12:54 Blood Culture - Preliminary Blood
[2023-07-12 10:40] LABS: INR 1.9 (<1.2); Prothrombin Time 19.2 sec (10.0-12.5)
[2023-07-12 11:48] LABS: Glucose,Whole Blood 108 mg/dL (70-110)
--- NOTE | 2023-07-12 13:04 | P.PN ---
Subjective Progress Note Date: 07/12/23 patient is a 62-year-old gentleman past medical history significant for atrial fibrillation on Coumadin, diabetes mellitus, hypertension who is a transfer from [facility] for worsening shortness of breath and generalized fatigue. Patient was in the hospital a month ago at which time he was found to have A- fib with RVR and pneumonia as well. Patient states for the last week he has been feeling not his usual self and was feeling more weak and tired. This weakness and feeling of tiredness progressed and he was feeling short of breath as well so he presented initially to [facility]. Patient also been complaining of cough. There was no complaint of fever or chills. Patient was worked up at [facility] found to have an elevated lactate of 3.6 and left lower lobe pneumonia. Patient was started on broad-spectrum antibiotics and transferred to our hospital 07/10. Patient seen and examined. States breathing has improved. Blood work done showed WBC 9.1, hemoglobin 15.8, platelet count 442, sodium 136, potassium 4.3, BUN 25, creatinine 0.92. No fever or chills 07/11. Patient seen and examined. Patient continues to be in A-fib, cardiology planning BAR with cardioversion on Thursday. States shortness of breath is improved REVIEW OF SYSTEMS: CONSTITUTIONAL: No fever, no malaise,. CARDIOVASCULAR: No chest pain, no palpitations, no syncope. PULMONARY: As mentioned above GASTROINTESTINAL: No diarrhea, no nausea, no vomiting, no abdominal pain. NEUROLOGICAL: No headaches, no weakness, PHYSICAL EXAMINATION: GENERAL: The patient is alert and oriented x3, not in any acute distress. Well developed, well nourished. HEENT: Pupils are round and equally reacting to light. EOMI. No scleral icterus. No conjunctival pallor. Normocephalic, atraumatic. No pharyngeal erythema. No thyromegaly. CARDIOVASCULAR: S1 and S2 present. No murmurs, rubs, or gallops. PULMONARY: Diminished breath sounds at the bases bilaterally, no wheezing or crackles. ABDOMEN: Soft, nontender, nondistended, normoactive bowel sounds. No palpable organomegaly. MUSCULOSKELETAL: No joint swelling or deformity. EXTREMITIES: No cyanosis, clubbing, or pedal edema. NEUROLOGICAL: Gross neurological examination did not reveal any focal deficits. SKIN: No rashes. Assessment and plan Bacterial pneumonia Acute hypoxic respiratory failure Persistent atrial fibrillation Hypertension Diabetes mellitus Hyperlipidemia GERD Monitor vital signs Monitor CBC Monitor CMP Continue telemetry monitoring Continue oxygen supplementation aggressive bronchopulmonary hygiene Encourage use of I-S Follow-up blood cultures Continue IV Zosyn Continue breathing treatments Continue pharmacy Coumadin ID following Cardiology following, added verapamil planning BAR with cardioversion on Thursday Pulmonology following Labs and medication were reviewed.. Continue same treatment. Continue with symptomatic treatment. Resume home medication. Monitor labs and vitals. DVT and GI prophylaxis. Further recommendations as per clinical course of the patient Dictation was produced using [employer] dictation software. please excuse any grammatical, word or spelling errors. Objective - Vital Signs Vital signs: Vital Signs Temp 98.1 F 07/12/23 08:00 Pulse 94 07/12/23 08:00 Resp 18 07/12/23 08:00 BP 103/74 07/12/23 08:00 Pulse Ox 99 07/12/23 08:00 FiO2 3 07/10/23 14:00 Intake & Output 07/11/23 07/12/23 07/12/23 18:59 06:59 18:59 Intake Total 798 60 236 Output Total 850 Balance -52 60 236 Intake: IV 20 Invasive Line 1 20 Intake, IV Titration 340 Amount Piperacillin-Tazobactam 3 100 .375 gm In Sodium Chloride 0.9% 100 ml @ 25 mls/hr IVPB Q8H ADRIANA Rx#: [id number] Sodium Chloride 0.9% 1, 240 000 ml @ 20 mls/hr IV . Q24H ADRIANA Rx#:[id number] Oral 458 40 [id number] Output: Urine 850 Other: Voiding Method Urinal Urinal # Voids 2 - Labs CBC & Chem 7: 07/11/23 09:20 07/11/23 09:20 Labs: Abnormal Lab Results - Last 24 Hours (Table) 07/11/23 07/11/23 07/11/23 Range/Units 09:20 09:20 09:20 MCV 100.7 H (80.0-100.0) fL MCHC 30.2 L (31.0-37.0) g/dL Lymphocytes # 0.7 L (1.0-4.8) k/uL PT 22.8 H (10.0-12.5) sec INR 2.3 H (<1.2) Sodium 136 L (137-145) mmol/L BUN 25 H (9-20) mg/dL Glucose 161 H (74-99) mg/dL POC Glucose (mg/dL) (70-110) mg/dL AST 112 H (17-59) U/L ALT 110 H (4-49) U/L Alkaline Phosphatase 149 H (38-126) U/L Total Protein 5.8 L (6.3-8.2) g/dL Albumin 2.7 L (3.5-5.0) g/dL 07/11/23 07/11/23 Range/Units 11:32 16:34 MCV (80.0-100.0) fL MCHC (31.0-37.0) g/dL Lymphocytes # (1.0-4.8) k/uL PT (10.0-12.5) sec INR (<1.2) Sodium (137-145) mmol/L BUN (9-20) mg/dL Glucose (74-99) mg/dL POC Glucose (mg/dL) 122 H 122 H (70-110) mg/dL AST (17-59) U/L ALT (4-49) U/L Alkaline Phosphatase (38-126) U/L Total Protein (6.3-8.2) g/dL Albumin (3.5-5.0) g/dL Microbiology - Last 24 Hours (Table) 07/10/23 12:54 Blood Culture - Preliminary Blood
--- NOTE | 2023-07-12 13:10 | P.PN ---
Subjective Progress Note Date: 07/12/23 Principal diagnosis: Acute hypoxic respiratory failure secondary to left lower lobe pneumonia and left parapneumonic pleural effusion This is a 62-year-old male patient who has a history of atrial fibrillation anticoagulated with warfarin continued on Xolair, chronic bronchial asthma, diabetes mellitus, hyperlipidemia, DVT. He had presented to [facility] with complaints of increasing shortness of breath, dry cough, palpitations and was found to be in atrial fibrillation with rapid ventricular response. He was transferred here for further treatment. Chest x-ray reveals cardiomegaly. There is a large area of consolidation in the left lower lobe with small effusion. White count 12.3. Hemoglobin 16.5. Platelets 550. INR 3.3. Sodium 136. Potassium 4.6. Bicarb 21. BUN 29. Creatinine 0.83. AST 160. ALT 90. He is seen today in consultation in the emergency department. He is currently sitting up on a stretcher. Awake and alert in no acute distress. He is maintaining O2 saturations in the 90s on 3 L/min per nasal cannula. He has been initiated on bronchodilators. Antibiotics in the form of Zosyn and azithromycin. Patient was reevaluated today on 07/11/23, patient is feeling better, breathing easier, hardly any cough no wheezing no shortness of breath no chest pain. Remains on 2 L nasal cannula, O2 sats is 98% ultrasound of the chest to evaluate the left pleural effusion showed a 4.3 cm pocket, this is not large enough to consider safe thoracentesis. Has no plan to perform thoracentesis at this point. The recommendation is to continue medical therapy. Procalcitonin level is elevated consistent with left lower lobe pneumonia, patient remains on antibiotics including Zosyn and ZithromaxWBC count today is coming down to 9.1, hemoglobin 15.8, INR 2.3 basic metabolic profile is normal renal profile is normal Reevaluate today on 07/12/2023, patient is feeling better today, breathing easier, patient was seen by cardiology for his atrial fibrillation with RVR on admission, he remains on Coumadin, remains on beta-blockers and verapamil, cardiology is considering BAR cardioversion tomorrow for his atrial flutter termination. In the meantime the patient is on antibiotics,/Zosyn and on bronchodilators, relatively asymptomatic, on 2 L nasal cannula, not in any distress. Objective - Vital Signs Vital signs: Vital Signs Temp 98.4 F 07/12/23 12:00 Pulse 91 07/12/23 12:00 Resp 18 07/12/23 12:00 BP 113/76 07/12/23 12:00 Pulse Ox 98 07/12/23 12:00 FiO2 3 07/10/23 14:00 Intake & Output 07/11/23 07/12/23 07/12/23 18:59 06:59 18:59 Intake Total 798 60 374 Output Total 850 Balance -52 60 374 Intake: IV 20 20 Invasive Line 1 20 20 Intake, IV Titration 340 Amount Piperacillin-Tazobactam 3 100 .375 gm In Sodium Chloride 0.9% 100 ml @ 25 mls/hr IVPB Q8H ADRIANA Rx#: [id number] Sodium Chloride 0.9% 1, 240 000 ml @ 20 mls/hr IV . Q24H ADRIANA Rx#:[id number] Oral 458 40 354 Output: Urine 850 Other: Voiding Method Urinal Urinal # Voids 2 - Exam GENERAL EXAM: Reveals 62-year-old white male obese in no distress, on 2 L nasal cannula O2 sat 98% HEAD: Normocephalic. EYES: Normal reaction of pupils, equal size. NOSE: Clear with pink turbinates. THROAT: No erythema or exudates. NECK: No masses, no JVD. CHEST: No chest wall deformity. LUNGS: Diminished breath sounds at the left base no crackles rhonchi or wheezes CVS: S1 and S2 normal with no audible murmur, irregular rhythm. ABDOMEN: No hepatosplenomegaly, normal bowel sounds, no guarding or rigidity. SKIN: No rashes CENTRAL NERVOUS SYSTEM: Alert oriented x 3 no gross focal deficit EXTREMITIES: No clubbing edema or cyanosis - Labs CBC & Chem 7: 07/11/23 09:20 07/11/23 09:20 Labs: Abnormal Lab Results - Last 24 Hours (Table) 07/11/23 07/12/23 Range/Units 16:34 08:17 PT 19.2 H (10.0-12.5) sec INR 1.9 H (<1.2) POC Glucose (mg/dL) 122 H (70-110) mg/dL Microbiology - Last 24 Hours (Table) 07/10/23 12:54 Blood Culture - Preliminary Blood Assessment and Plan Assessment: Impression: Acute hypoxic respiratory failure secondary to an acute left lower lobe infiltrate/effusion Chronic atrial fibrillation/flutter anticoagulated with warfarin History of mild intermittent chronic bronchial asthma maintained on Xolair, Singulair, bronchodilators Hyperlipidemia Hypertension Anxiety/depression Diabetes mellitus Lifelong non-smoker Recommendation: Continue antibiotics Titrate FiO2 accordingly may even may not even require home oxygen Procalcitonin level is noted to be elevated agree with cardioversion /BAR cardioversion planned for tomorrow Continue bronchodilators Reviewed the results of the ultrasound of the chest no need for thoracentesis the pocket is too small to consider safe thoracentesis Will continue to follow Time with Patient: Less than 30
[2023-07-12] MEDS: WARFARIN 7.5 MG TAB PO ONE (15:23)
--- NOTE | 2023-07-12 15:44 | P.PN ---
Subjective Progress Note Date: 07/12/23 Principal diagnosis: Reason for follow-up is sepsis on admission and pneumonia Patient is a 62-year-old male with a past medical history significant for atrial fibrillation diabetes mellitus DVT CVA TIA patient has been brought into the hospital as a transfer from [facility] where the patient was initially brought in for generalized weakness and fatigue, patient be diagnosed with sepsis related to pneumonia prompting this consultation. On today's evaluation that is 07/12/2023,the patient remains to be afebrile, patient is on 2 L nasal cannula supplemental oxygen and denies any shortness of breath no chest pain continue to have a cough but not bring up any sputum.Patient denies having any nausea or vomiting, no abdominal pain and no diarrhea. Did have INR of 1.9 no CBC was done today blood cultures pending sputum not collected urine for Legionella antigen negative Objective - Vital Signs Vital signs: Vital Signs Temp 98.4 F 07/12/23 12:00 Pulse 91 07/12/23 12:00 Resp 18 07/12/23 12:00 BP 113/76 07/12/23 12:00 Pulse Ox 98 07/12/23 12:00 FiO2 3 07/10/23 14:00 Intake & Output 07/11/23 07/12/23 07/12/23 18:59 06:59 18:59 Intake Total 798 60 374 Output Total 850 Balance -52 60 374 Intake: IV 20 20 Invasive Line 1 20 20 Intake, IV Titration 340 Amount Piperacillin-Tazobactam 3 100 .375 gm In Sodium Chloride 0.9% 100 ml @ 25 mls/hr IVPB Q8H ADRIANA Rx#: [id number] Sodium Chloride 0.9% 1, 240 000 ml @ 20 mls/hr IV . Q24H ADRIANA Rx#:[id number] Oral 458 40 354 Output: Urine 850 Other: Voiding Method Urinal Urinal # Voids 2 - Exam GENERAL DESCRIPTION: Middle-age male lying in bed in no distress RESPIRATORY SYSTEM: Unlabored breathing , decreased breath sounds at bases HEART: S1 S2 regular rate and rhythm , ABDOMEN: Soft , no tenderness EXTREMITIES: No edema feet - Labs CBC & Chem 7: 07/11/23 09:20 07/11/23 09:20 Labs: Abnormal Lab Results - Last 24 Hours (Table) 03/30/24 03/31/24 Range/Units 16:34 08:17 PT 19.2 H (10.0-12.5) sec INR 1.9 H (<1.2) POC Glucose (mg/dL) 122 H (70-110) mg/dL Microbiology - Last 24 Hours (Table) 07/10/23 18:21 Nasal Screen MRSA/MSSA - Final Nasal Swab 07/10/23 12:54 Blood Culture - Preliminary Blood Assessment and Plan (1) Pneumonia Current Visit: Yes Status: Acute Code(s): J18.9 - PNEUMONIA, UNSPECIFIED ORGANISM SNOMED Code(s): 837080957 Plan: 1patient presented hospital with sepsis in this patient who did have a elevated white count mild tachycardia, source of the left lower lobe pneumonia in this patient reporting repeated pneumonia for the last few months question of aspiration etiology less likely immunodeficiency 2-sputum culture not obtained procalcitonin of 0.83 IgG level pending 3-patient to continue with Zosyn 3.375 g every 8 hours, try to obtain a sputum and monitor clinical course closely Dictation was produced using [employer] dictation software. please excuse any grammatical, word or spelling errors. Time with Patient: Less than 30
[2023-07-12 16:24] LABS: Glucose,Whole Blood 96 mg/dL (70-110)
[2023-07-12 19:50] LABS: Glucose,Whole Blood 93 mg/dL (70-110)
[2023-07-13 05:56] LABS: Glucose,Whole Blood 98 mg/dL (70-110)
[2023-07-13 08:27] LABS: INR 2.3 (<1.2); Prothrombin Time 23.1 sec (10.0-12.5)
[2023-07-13 09:08] LABS: ALT 72 U/L (4-49); AST 35 U/L (17-59); African American GFR (CKD) >90 (>60 ml/min/1.73 sqM); Albumin 2.5 g/dL (3.5-5.0); Alkaline Phosphatase 106 U/L (38-126); Anion Gap 8 mmol/L; Blood Urea Nitrogen 15 mg/dL (9-20); Calcium 8.8 mg/dL (8.4-10.2); Carbon Dioxide 22 mmol/L (22-30); Chloride 111 mmol/L (98-107); Glucose 109 mg/dL (74-99); HCT 45.1 % (39.0-53.0); HGB 14.4 gm/dL (13.0-17.5); MCH 30.6 pg (25.0-35.0); MCHC 31.9 g/dL (31.0-37.0); MCV 95.9 fL (80.0-100.0); Mean Platelet Volume 9.2; Non-African American GFR(CKD) >90 (>60 ml/min/1.73 sqM); Platelet Count 532 k/uL (150-450); Potassium 4.5 mmol/L (3.5-5.1); RBC 4.71 m/uL (4.30-5.90); RDW 15.2 % (11.5-15.5); Sodium 141 mmol/L (137-145); Total Bilirubin 0.4 mg/dL (0.2-1.3); Total Protein 5.4 g/dL (6.3-8.2); WBC 6.3 k/uL (3.8-10.6)
[2023-07-13 09:23] LABS: Band Neutrophils % 2 %; Eosinophils # (M) 0.13 k/uL (0-0.7); Lymphocytes # (M) 1.39 k/uL (1.0-4.8); Neutrophils % (M) 66 %; Nucleated Red Blood Cells 0 /100 WBC (0-0); Total Cells Counted 100
[2023-07-13 09:24] LABS: RBC Morphology Normal
[2023-07-13 09:27] LABS: T4/T8 Ratio (CD4:CD8) 2.1 (1.0-3.7)
--- NOTE | 2023-07-13 09:29 | P.PN ---
Subjective patient is a 62-year-old gentleman past medical history significant for atrial fibrillation on Coumadin, diabetes mellitus, hypertension who is a transfer from [facility] for worsening shortness of breath and generalized fatigue. Patient was in the hospital a month ago at which time he was found to have A- fib with RVR and pneumonia as well. Patient states for the last week he has been feeling not his usual self and was feeling more weak and tired. This weakness and feeling of tiredness progressed and he was feeling short of breath as well so he presented initially to [facility]. Patient also been complaining of cough. There was no complaint of fever or chills. Patient was worked up at [facility] found to have an elevated lactate of 3.6 and left lower lobe pneumonia. Patient was started on broad-spectrum antibiotics and transferred to our hospital 07/10. Patient seen and examined. States breathing has improved. Blood work done showed WBC 9.1, hemoglobin 15.8, platelet count 442, sodium 136, potassium 4.3, BUN 25, creatinine 0.92. No fever or chills 07/11. Patient seen and examined. Patient continues to be in A-fib, cardiology planning BAR with cardioversion on Thursday. States shortness of breath is improved 07/13/2023 Patient sitting at the age, denies chest pain or dyspnea Get up and go test is normal He is going for cardioversion today with cardiology team Currently covered with Wilberto, his Pro-Calcitonin was elevated 0.3 on admission no fever no leukocytosis. Keep monitoring INR, patient states that he has Coumadin at home and usually he follow-up with his PCP to check INR, he sees nurse practitioner Nguyen with Dr. Frazier and he agrees to follow-up with her upon discharge. His care manager cna is Dr. Dahl Possible discharge in 24 to 48 hours if improvement and remained stable Objective - Vital Signs Vital signs: Vital Signs Temp 98.1 F 07/13/23 08:28 Pulse 86 07/13/23 08:28 Resp 17 07/13/23 08:28 BP 101/68 07/13/23 08:28 Pulse Ox 97 07/13/23 08:34 FiO2 3 07/10/23 14:00 Intake & Output 07/12/23 07/13/23 07/13/23 18:59 06:59 18:59 Intake Total 492 60 Balance 492 60 Intake: IV 20 20 Invasive Line 1 20 20 Oral 472 40 Other: Voiding Method Urinal Urinal # Voids 1 - Exam GENERAL: The patient is alert and oriented x3, not in any acute distress. Well developed, well nourished. HEENT: Pupils are round and equally reacting to light. EOMI. No scleral icterus. No conjunctival pallor. Normocephalic, atraumatic. No pharyngeal erythema. No thyromegaly. CARDIOVASCULAR: S1 and S2 present. No murmurs, rubs, or gallops. PULMONARY: Chest is clear to auscultation, no wheezing , no crackles. ABDOMEN: Soft, nontender, nondistended, normoactive bowel sounds. No palpable organomegaly. MUSCULOSKELETAL: No joint swelling or deformity. EXTREMITIES: No cyanosis, clubbing, or pedal edema. NEUROLOGICAL: Gross neurological examination did not reveal any focal deficits. SKIN: No rashes. no petechiae. - Labs CBC & Chem 7: 07/13/23 06:51 07/13/23 06:51 Labs: Abnormal Lab Results - Last 24 Hours (Table) 07/12/23 07/13/23 07/13/23 Range/Units 08:17 06:51 06:51 Plt Count 532 H (150-450) k/uL PT 19.2 H (10.0-12.5) sec INR 1.9 H (<1.2) Chloride 111 H (98-107) mmol/L Glucose 109 H (74-99) mg/dL ALT 72 H (4-49) U/L Total Protein 5.4 L (6.3-8.2) g/dL Albumin 2.5 L (3.5-5.0) g/dL 07/13/23 Range/Units 06:51 Plt Count (150-450) k/uL PT 23.1 H (10.0-12.5) sec INR 2.3 H (<1.2) Chloride (98-107) mmol/L Glucose (74-99) mg/dL ALT (4-49) U/L Total Protein (6.3-8.2) g/dL Albumin (3.5-5.0) g/dL Microbiology - Last 24 Hours (Table) 07/10/23 12:54 Blood Culture - Preliminary Blood 07/11/23 09:20 Blood Culture - Preliminary Blood 07/10/23 18:21 Nasal Screen MRSA/MSSA - Final Nasal Swab Assessment and Plan Assessment: Bacterial pneumonia Acute hypoxic respiratory failure Persistent atrial fibrillation Hypertension Diabetes mellitus Hyperlipidemia GERD Plan: Continue Zosyn Continue with warfarin with goal INR 2-3 Cardiology, pulmonary team and ID team on the case Labs and medication were reviewed.. Continue same treatment. Continue with symptomatic treatment. Resume home medication. Monitor labs and vitals. DVT and GI prophylaxis. Further recommendations as per clinical course of the patient DVT prophylaxis: on warfarin GI Prophylaxis: Protonix Prognosis is guarded
[2023-07-13] MEDS: BENZOCAINE SPRAY 1 CAN TOPICAL ONE (09:46)
[2023-07-13] MEDS: SODIUM CHLORIDE 0.9% 1,000 ML IV ONE (09:56)
[2023-07-13] MEDS ORDERED: PROPOFOL 10 MG/ML 20 ML VIAL IV ONE (10:00)
[2023-07-13] MEDS ORDERED: LIDOCAINE 1% INJ 10MG/ML (20 ML MDV) ONE (10:00)
[2023-07-13 10:26] LABS: Glucose,Whole Blood 89 mg/dL (70-110)
--- NOTE | 2023-07-13 10:57 | ECHOT ---
TRANSESOPHAGEAL ECHOCARDIOGRAM INDICATION: Atypical atrial flutter, to rule out intracardiac thrombus prior to cardioversion. PROCEDURE NOTE: After obtaining informed consent, transesophageal echocardiogram was performed in left lateral position using an Omniplane probe. Local and IV sedation were obtained by the viscera washer. FINDINGS: 1. There is no intracardiac thrombus within the left atrial appendage, left atrium, right atrium, right ventricle, or left ventricle. 2. Left ventricle has normal size and systolic function. 3. Left atrium and right atrium appear enlarged. Right ventricle has normal size and systolic function. 4. Aortic root measures within normal limits. Mitral valve shows mild mitral regurgitation. Aortic valve is a 3-leaflet valve. There is no evidence of aortic stenosis or regurgitation. Tricuspid valve appears normal. There is mild tricuspid regurgitation. Interatrial septum, there is no evidence of [id number] shunt by color-flow Doppler or vaily-ae-yiae shunt by agitated saline contrast study. CONCLUSIONS: 1. No intracardiac thrombus. 2. Normal LV systolic function. PLAN: The patient will undergo cardioversion. MMODL / IJN: [id number] /
[2023-07-13 11:21] LABS: Glucose,Whole Blood 87 mg/dL (70-110)
--- NOTE | 2023-07-13 11:30 | CDI ---
Documentation Clarification Form Date: 07/13/2023 11:16:25 AM From: Kriss Lao RN CCDS Phone: [phone] Admit Date: 07/09/2023 07:44:00 PM Patient Name: John Arrieta Visit Number: [id number] Discharge Date: ATTENTION: The Clinical Documentation Specialists (CDI) and [facility] Coding Staff appreciate your assistance in clarifying documentation. Please respond to the clarification below the line at the bottom and electronically sign. The CDI & [facility] Coding staff will review the response and follow-up if needed. Please note: Queries are made part of the Legal Health Record. If you have any questions, please contact the author of this message via ITS. Dr. Chin Hahn Bacterial pneumonia is documented 07/09, H&P. Additional clarification regarding the type of pneumonia is requested. History/Risk Factors: 62-year-old male presented as a transfer from [facility] for worsening shortness of breath and generalized fatigue. The patient was worked up at [facility] found to have elevated lactate of 3.6 and left lower lobe pneumonia. Medical History: Patient was in the hospital a month ago at which time he was found to have A-fib with RVR and pneumonia as well. HTN, DM, HLD and GERD 07/09, H&P. Clinical Indicators: VSS, 07/08: B/P 132/84; HR 64; Temp 98.6 F Oral; RR 20; SpO2 94% 3L nasal cannula CXR, 07/09: Large area of consolidation left lower lobe with small effusion. WBC, 07/08: 12.3 Neutrophils, 07/09: 9.9 Lung/Breathing assessment, 07/09 H&P: Chest is clear to auscultation. Treatment: Antibiotics: 07/09 Zithromax 500mg po x doses; 07/09 Zosyn 3.375gm IVPB x 1; 07/09 Vancomycin 1,750mg IVPB x 1; 07/09 Zosyn 3.375mg IVPB Q8H; O2 Please clarify the type of pneumonia, if known: [ ] Aspiration Pneumonia, Due to food or vomitus [ x ] Bacterial Pneumonia, specify causal organism (if known)___gram-negative bacteria [ ] Gram Negative Bacterial Pneumonia [ ] Other bacteria (please specify) [ ] Other, please specify [ ] Unable to determine (Template Last Revised: June 2020) MTDD
--- NOTE | 2023-07-13 11:31 | CDI ---
Documentation Clarification Form Date: 07/13/2023 10:44:35 AM From: Kriss Lao RN CCDS Phone: [phone] Admit Date: 07/09/2023 07:44:00 PM Patient Name: John Arrieta Visit Number: [id number] Discharge Date: ATTENTION: The Clinical Documentation Specialists (CDI) and [facility] Coding Staff appreciate your assistance in clarifying documentation. Please respond to the clarification below the line at the bottom and electronically sign. The CDI & [facility] Coding staff will review the response and follow-up if needed. Please note: Queries are made part of the Legal Health Record. If you have any questions, please contact the author of this message via ITS. Dr. Chin Hahn Sepsis is documented 07/09, ID consult which may lack sufficient clinical evidence/support in the medical record. Additional clarification is requested. History/Risk Factors: 62-year-old male presented as a transfer from [facility] for worsening shortness of breath and generalized fatigue. The patient was worked up at [place] found to have elevated lactate of 3.6 and left lower lobe pneumonia. Medical History: Patient was in the hospital a month ago at which time he was found to have A-fib with RVR and pneumonia as well. HTN, DM, HLD and GERD 07/09, H&P. Clinical Indicators: VSS, 07/08: B/P 132/84; HR 64; Temp 98.6 F Oral; RR 20; SpO2 94% 3L nasal cannula CXR, 07/09: Large area of consolidation left lower lobe with small effusion. WBC, 07/09: 12.3 Neutrophils, 07/09: 9.9 Blood cultures: 07/09 Collected, No growth after 48 hours; 06/30 Collected, No growth after 24 hours. Nasal Swab 07/09 Collected: Final 07/11 No Methicillin Sensitive Staph aureus isolated. ID Consult, 07/09: patient presented hospital with sepsis in this patient who did have a elevated white count mild tachycardia, source of the left lower lobe pneumonia in this patient reporting repeated pneumonia for the last few months question of aspiration etiology less likely immunodeficiency. Treatment: 07/08 Lopressor 100mg po x 1; 07/08 Lopressor 100mg po BID IV fluids: 07/08 0.9NS 1,000mls @ 20cc/hr Q24H; ID Consult: See above Antibiotics: 07/09 Zithromax 500mg po x doses; 07/09 Zosyn 3.375gm IVPB x 1; 07/09 Vancomycin 1,750mg IVPB x 1; 07/09 Zosyn 3.375mg IVPB Q8H; Please clarify if Sepsis is a valid diagnosis? [ ] Yes, Sepsis is present as evidence by (additional clinical support): [ x] No, Sepsis is ruled out [ ] Other (please specify diagnosis) [ ] Unable to determine SIRS Criteria: 2 or more of the following may indicate SIRS Temperature < 96.8F (36C) or > 101.0F (38.3C) Heart Rate > 90 bpm Respiratory Rate > 20 breaths/min or PaCO2 < 32 mmHg White Blood Cell Count > 12,000 or < 4,000 cells/mm3 or > 10% bands (Template Last Revised: June 2020) MTDD
--- NOTE | 2023-07-13 12:40 | P.PN ---
Subjective Progress Note Date: 07/13/23 Principal diagnosis: Pneumonia. Acute hypoxic respiratory failure secondary to left lower lobe pneumonia and left parapneumonic pleural effusion This is a 62-year-old male patient who has a history of atrial fibrillation anticoagulated with warfarin continued on Xolair, chronic bronchial asthma, diabetes mellitus, hyperlipidemia, DVT. He had presented to [facility] with complaints of increasing shortness of breath, dry cough, palpitations and was found to be in atrial fibrillation with rapid ventricular response. He was transferred here for further treatment. Chest x-ray reveals cardiomegaly. There is a large area of consolidation in the left lower lobe with small effusion. White count 12.3. Hemoglobin 16.5. Platelets 550. INR 3.3. Sodium 136. Potassium 4.6. Bicarb 21. BUN 29. Creatinine 0.83. AST 160. ALT 90. He is seen today in consultation in the emergency department. He is currently sitting up on a stretcher. Awake and alert in no acute distress. He is maintaining O2 saturations in the 90s on 3 L/min per nasal cannula. He has been initiated on bronchodilators. Antibiotics in the form of Zosyn and azithromycin. Patient was reevaluated today on 07/11/23, patient is feeling better, breathing easier, hardly any cough no wheezing no shortness of breath no chest pain. Remains on 2 L nasal cannula, O2 sats is 98% ultrasound of the chest to evaluate the left pleural effusion showed a 4.3 cm pocket, this is not large enough to consider safe thoracentesis. Has no plan to perform thoracentesis at this point. The recommendation is to continue medical therapy. Procalcitonin level is elevated consistent with left lower lobe pneumonia, patient remains on antibiotics including Zosyn and ZithromaxWBC count today is coming down to 9.1, hemoglobin 15.8, INR 2.3 basic metabolic profile is normal renal profile is normal Reevaluate today on 07/12/2023, patient is feeling better today, breathing easier, patient was seen by cardiology for his atrial fibrillation with RVR on admission, he remains on Coumadin, remains on beta-blockers and verapamil, cardiology is considering BAR cardioversion tomorrow for his atrial flutter termination. In the meantime the patient is on antibiotics,/Zosyn and on bronchodilators, relatively asymptomatic, on 2 L nasal cannula, not in any distress. Progress note dated July 13, 2023. The patient is seen today in room 353. The patient is going for cardioversion, and transesophageal echocardiogram today. He is currently on room air. He is getting saline at 20 cc an hour. His procalcitonin level was 0.83. He is being treated for pneumonia, with Zosyn. Cultures are currently negative. White count 6.3, hemoglobin 14.4, hematocrit 45.1, and a platelet count of 532,000. PT is 23.1 with an INR of 2.3. Sodium 141, potassium 4.5, chlorides 111, CO2 22, BUN 15, creatinine 0.82. Albumin is 2.5. The patient's transesophageal echocardiogram showed normal LV systolic function, and no intracardiac thrombus. Objective - Vital Signs Vital signs: Vital Signs Temp 98.1 F 07/13/23 08:28 Pulse 64 07/13/23 11:33 Resp 16 07/13/23 11:33 BP 102/75 07/13/23 11:33 Pulse Ox 100 07/13/23 11:33 FiO2 3 07/10/23 14:00 Intake & Output 07/12/23 07/13/23 07/13/23 18:59 06:59 18:59 Intake Total 492 60 150 Balance 492 60 150 Intake: IV 20 20 150 Invasive Line 1 20 20 Oral 472 40 Other: Voiding Method Urinal Urinal # Voids 1 - Exam No acute distress, oriented 3. Patient is currently on room air. HEENT examination is grossly unremarkable. Mucous membranes are moist. No oral lesions. Neck supple. Full range of motion. No adenopathy thyromegaly or neck vein distention. Cardiovascular examination reveals regular rhythm rate. S1-S2 normal. No S3 or S4. No discernible murmur noted. Rate 64 bpm. Lungs reveal clear breath sounds. Breath sounds are equal bilaterally. No adventitious lung sounds including wheezes rhonchi or crackles. Saturations are 100%. Abdomen soft bowel sounds are heard. No masses or tenderness. Extremities are intact. No cyanosis clubbing or edema. Skin is without rash or lesion. Neurologic examination is brief but nonfocal. - Labs CBC & Chem 7: 07/13/23 06:51 07/13/23 06:51 Labs: Abnormal Lab Results - Last 24 Hours (Table) 0307/13/23 07/13/23 Range/Units 09:20 06:51 06:51 Plt Count 532 H (150-450) k/uL PT (10.0-12.5) sec INR (<1.2) Chloride 111 H (98-107) mmol/L Glucose 109 H (74-99) mg/dL ALT 72 H (4-49) U/L Total Protein 5.4 L (6.3-8.2) g/dL Albumin 2.5 L (3.5-5.0) g/dL % CD16/CD56 Cells 26 H (3-24) % 07/13/23 Range/Units 06:51 Plt Count (150-450) k/uL PT 23.1 H (10.0-12.5) sec INR 2.3 H (<1.2) Chloride (98-107) mmol/L Glucose (74-99) mg/dL ALT (4-49) U/L Total Protein (6.3-8.2) g/dL Albumin (3.5-5.0) g/dL % CD16/CD56 Cells (3-24) % Microbiology - Last 24 Hours (Table) 07/10/23 12:54 Blood Culture - Preliminary Blood 07/11/23 09:20 Blood Culture - Preliminary Blood 07/10/23 18:21 Nasal Screen MRSA/MSSA - Final Nasal Swab Assessment and Plan Assessment: Acute hypoxemic respiratory failure, secondary to her left lower lobe pneumonia. Chronic atrial fibrillation/flutter, currently on warfarin. History of mild intermittent chronic bronchial asthma. Hyperlipidemia. Hypertension. Anxiety/depression. Diabetes mellitus. Lifelong non-smoker. Plan: Plan dated July 13, 2023. The patient continues on Zosyn. He is on room air. He is getting saline at 20 cc an hour. His transesophageal echocardiogram, revealed normal LV function, without evidence of intracardiac thrombus. The patient will then undergo a cardioversion. His procalcitonin level was 0.83. Labs, x-rays, and medications are reviewed. The patient's overall prognosis remains guarded. We will continue to follow the patient, and make recommendations along the way. Time with Patient: Less than 30
--- NOTE | 2023-07-13 13:51 | PCN ---
PROCEDURE NOTE PROCEDURE PERFORMED: Cardioversion note. DESCRIPTION OF PROCEDURE: The patient underwent cardioversion with synchronized DC current of 200 joules. He converted to sinus rhythm following 2 shocks of 150 and 200. He will continue the Coumadin that he is on. INR is therapeutic this morning and a BAR had ruled out intracardiac thrombus. SHARRON / EVANGELINAN: [id number] /
[2023-07-13 16:20] LABS: Glucose,Whole Blood 96 mg/dL (70-110)
[2023-07-13] MEDS: WARFARIN 5 MG TAB PO ONE (18:00)
--- NOTE | 2023-07-13 18:49 | P.PN ---
Subjective Progress Note Date: 07/13/23 Principal diagnosis: Reason for follow-up is sepsis on admission and pneumonia Patient is a 62-year-old male with a past medical history significant for atrial fibrillation diabetes mellitus DVT CVA TIA patient has been brought into the hospital as a transfer from [facility] where the patient was initially brought in for generalized weakness and fatigue, patient be diagnosed with sepsis related to pneumonia prompting this consultation. On today's evaluation that is 07/13/2023, the patient continues to be afebrile, the patient is on room air and breathing comfortably, the Pt denies having any chest pain and denies any worsening cough and no sputum production, the patient denies having any abdominal pain no vomiting or any diarrhea, feeling slightly better. The patient white count is 6.3, creatinine 0.82 blood culture has been negative sputum culture not obtained Objective - Vital Signs Vital signs: Vital Signs Temp 98.1 F 07/13/23 08:28 Pulse 64 07/13/23 11:33 Resp 16 07/13/23 11:33 BP 102/75 07/13/23 11:33 Pulse Ox 100 07/13/23 11:33 FiO2 3 07/10/23 14:00 Intake & Output 07/12/23 07/13/23 07/13/23 18:59 06:59 18:59 Intake Total 492 60 150 Balance 492 60 150 Intake: IV 20 20 150 Invasive Line 1 20 20 Oral 472 40 Other: Voiding Method Urinal Urinal # Voids 1 - Exam GENERAL DESCRIPTION: Middle-age male lying in bed in no distress RESPIRATORY SYSTEM: Unlabored breathing , decreased breath sounds at bases HEART: S1 S2 regular rate and rhythm , ABDOMEN: Soft , no tenderness EXTREMITIES: No edema feet - Labs CBC & Chem 7: 07/13/23 06:51 07/13/23 06:51 Labs: Abnormal Lab Results - Last 24 Hours (Table) 07/11/23 07/13/23 07/13/23 Range/Units 09:20 06:51 06:51 Plt Count 532 H (150-450) k/uL PT (10.0-12.5) sec INR (<1.2) Chloride 111 H (98-107) mmol/L Glucose 109 H (74-99) mg/dL ALT 72 H (4-49) U/L Total Protein 5.4 L (6.3-8.2) g/dL Albumin 2.5 L (3.5-5.0) g/dL % CD16/CD56 Cells 26 H (3-24) % 07/13/23 Range/Units 06:51 Plt Count (150-450) k/uL PT 23.1 H (10.0-12.5) sec INR 2.3 H (<1.2) Chloride (98-107) mmol/L Glucose (74-99) mg/dL ALT (4-49) U/L Total Protein (6.3-8.2) g/dL Albumin (3.5-5.0) g/dL % CD16/CD56 Cells (3-24) % Microbiology - Last 24 Hours (Table) 07/10/23 12:54 Blood Culture - Preliminary Blood 07/11/23 09:20 Blood Culture - Preliminary Blood 07/10/23 18:21 Nasal Screen MRSA/MSSA - Final Nasal Swab Assessment and Plan (1) Pneumonia Current Visit: Yes Status: Acute Code(s): J18.9 - PNEUMONIA, UNSPECIFIED ORGANISM SNOMED Code(s): 426676272 Plan: 1patient presented hospital with sepsis in this patient who did have a elevated white count mild tachycardia, source of the left lower lobe pneumonia in this patient reporting repeated pneumonia for the last few months question of aspiration etiology less likely immunodeficiency 2-sputum culture not obtained procalcitonin of 0.83 IgG level pending 3-patient has shown clinical improvement and continue with Zosyn 3.375 g every 8 hours, finishing therapy with oral antibiotics Dictation was produced using [employer] dictation software. please excuse any grammatical, word or spelling errors. Time with Patient: Less than 30
[2023-07-13 20:25] LABS: Glucose,Whole Blood 152 mg/dL (70-110)
[2023-07-14 06:02] LABS: Glucose,Whole Blood 99 mg/dL (70-110)
[2023-07-14 11:06] LABS: INR 2.5 (<1.2); Prothrombin Time 24.9 sec (10.0-12.5)
[2023-07-14 11:18] LABS: Glucose,Whole Blood 76 mg/dL (70-110)
--- NOTE | 2023-07-14 12:19 | P.PN ---
Subjective HISTORY OF PRESENT ILLNESS: Patient is status post BAR and cardioversion. A few hours after procedure, the patient went back into atrial flutter. He remains in atrial flutter with controlled ventricular rates. He continues to report feeling tired. However he denies any chest pain or pressure. Denies any shortness of breath. Vital signs are stable. PHYSICAL EXAM: VITAL SIGNS: Reviewed. GENERAL: Well-developed in no acute distress. NECK: Supple. No JVD or thyromegaly LUNGS: Respirations even and unlabored. Lungs essentially clear to auscultation bilaterally. HEART: Regular rate and rhythm. S1 and S2 heard. EXTREMITIES: Normal range of motion. No clubbing or cyanosis. Peripheral pulses intact. No lower extremity edema ASSESSMENT: Persistent atrial flutter status post BAR and cardioversion with adventist of sinus mechanism, converted back to atrial fibrillation a few hours post cardioversion Pneumonia Hyperlipidemia Peripheral vascular disease PLAN: Continue current cardiac medications Patient is stable for discharge home today from a cardiac standpoint He is to follow-up outpatient with his primary engineering specialist technician and discussion can be held at that time for possible ablation Nurse practitioner note has been reviewed by physician. Signing provider agrees with the documented findings, assessment, and plan of care documented by TEXT TRANSCRIBER as a scribe. Objective - Vital Signs Vital signs: Vital Signs Temp 97.6 F 07/14/23 07:59 Pulse 69 07/14/23 07:59 Resp 18 07/14/23 04:00 BP 99/66 07/14/23 07:59 Pulse Ox 98 07/14/23 07:59 FiO2 3 07/10/23 14:00 Intake & Output 07/13/23 07/14/23 07/14/23 18:59 06:59 18:59 Intake Total 270 40 118 Balance 270 40 118 Intake: IV 50 Oral 220 40 118 Other: Voiding Method Urinal Urinal # Voids 2 1 # Bowel Movements 1 - Labs CBC & Chem 7: 07/13/23 06:51 07/13/23 06:51 Labs: Abnormal Lab Results - Last 24 Hours (Table) 07/13/23 07/14/23 Range/Units 20:23 08:30 PT 24.9 H (10.0-12.5) sec INR 2.5 H (<1.2) POC Glucose (mg/dL) 152 H (70-110) mg/dL Microbiology - Last 24 Hours (Table) 07/10/23 12:54 Blood Culture - Preliminary Blood 07/11/23 09:20 Blood Culture - Preliminary Blood
--- NOTE | 2023-07-14 12:24 | P.PN ---
Subjective Progress Note Date: 07/14/23 Principal diagnosis: Pneumonia. Acute hypoxic respiratory failure secondary to left lower lobe pneumonia and left parapneumonic pleural effusion This is a 62-year-old male patient who has a history of atrial fibrillation anticoagulated with warfarin continued on Xolair, chronic bronchial asthma, diabetes mellitus, hyperlipidemia, DVT. He had presented to [facility] with complaints of increasing shortness of breath, dry cough, palpitations and was found to be in atrial fibrillation with rapid ventricular response. He was transferred here for further treatment. Chest x-ray reveals cardiomegaly. There is a large area of consolidation in the left lower lobe with small effusion. White count 12.3. Hemoglobin 16.5. Platelets 550. INR 3.3. Sodium 136. Potassium 4.6. Bicarb 21. BUN 29. Creatinine 0.83. AST 160. ALT 90. He is seen today in consultation in the emergency department. He is currently sitting up on a stretcher. Awake and alert in no acute distress. He is maintaining O2 saturations in the 90s on 3 L/min per nasal cannula. He has been initiated on bronchodilators. Antibiotics in the form of Zosyn and azithromycin. Patient was reevaluated today on 07/11/23, patient is feeling better, breathing easier, hardly any cough no wheezing no shortness of breath no chest pain. Remains on 2 L nasal cannula, O2 sats is 98% ultrasound of the chest to evaluate the left pleural effusion showed a 4.3 cm pocket, this is not large enough to consider safe thoracentesis. Has no plan to perform thoracentesis at this point. The recommendation is to continue medical therapy. Procalcitonin level is elevated consistent with left lower lobe pneumonia, patient remains on antibiotics including Zosyn and ZithromaxWBC count today is coming down to 9.1, hemoglobin 15.8, INR 2.3 basic metabolic profile is normal renal profile is normal Reevaluate today on 07/12/2023, patient is feeling better today, breathing easier, patient was seen by cardiology for his atrial fibrillation with RVR on admission, he remains on Coumadin, remains on beta-blockers and verapamil, cardiology is considering BAR cardioversion tomorrow for his atrial flutter termination. In the meantime the patient is on antibiotics,/Zosyn and on bronchodilators, relatively asymptomatic, on 2 L nasal cannula, not in any distress. Progress note dated July 13, 2023. The patient is seen today in room 353. The patient is going for cardioversion, and transesophageal echocardiogram today. He is currently on room air. He is getting saline at 20 cc an hour. His procalcitonin level was 0.83. He is being treated for pneumonia, with Zosyn. Cultures are currently negative. White count 6.3, hemoglobin 14.4, hematocrit 45.1, and a platelet count of 532,000. PT is 23.1 with an INR of 2.3. Sodium 141, potassium 4.5, chlorides 111, CO2 22, BUN 15, creatinine 0.82. Albumin is 2.5. The patient's transesophageal echocardiogram showed normal LV systolic function, and no intracardiac thrombus. Progress note dated July 14, 2023. The patient is seen today in room 355. The patient had a transesophageal echocardiogram yesterday, and, because there was no thrombus within the heart, had a cardioversion. Currently he is on room air. The patient is getting saline at 20 cc an hour. The patient's rhythm is currently atrial flutter. He sounds regular on auscultation. Current labs include a PT of 24.9, and an INR of 2.5. Glucose is 76. Objective - Vital Signs Vital signs: Vital Signs Temp 97.6 F 07/14/23 07:59 Pulse 69 07/14/23 07:59 Resp 18 07/14/23 04:00 BP 99/66 07/14/23 07:59 Pulse Ox 98 07/14/23 07:59 FiO2 3 07/10/23 14:00 Intake & Output 07/13/23 07/14/23 07/14/23 18:59 06:59 18:59 Intake Total 270 40 118 Balance 270 40 118 Intake: IV 50 Oral 220 40 118 Other: Voiding Method Urinal Urinal # Voids 2 1 # Bowel Movements 1 - Exam No acute distress, oriented 3. Patient is currently on room air. HEENT examination is grossly unremarkable. Mucous membranes are moist. No oral lesions. Neck supple. Full range of motion. No adenopathy thyromegaly or neck vein distention. Cardiovascular examination reveals regular rhythm rate. S1-S2 normal. No S3 or S4. No discernible murmur noted. Rate is 62 bpm. Lungs reveal clear breath sounds. Breath sounds are equal bilaterally. No adventitious lung sounds including wheezes rhonchi or crackles. Saturations are 97 %. Abdomen soft bowel sounds are heard. No masses or tenderness. Extremities are intact. No cyanosis clubbing or edema. Skin is without rash or lesion. Neurologic examination is brief but nonfocal. - Labs CBC & Chem 7: 07/13/23 06:51 07/13/23 06:51 Labs: Abnormal Lab Results - Last 24 Hours (Table) 07/13/23 07/14/23 Range/Units 20:23 08:30 PT 24.9 H (10.0-12.5) sec INR 2.5 H (<1.2) POC Glucose (mg/dL) 152 H (70-110) mg/dL Microbiology - Last 24 Hours (Table) 07/10/23 12:54 Blood Culture - Preliminary Blood 07/11/23 09:20 Blood Culture - Preliminary Blood Assessment and Plan Assessment: Acute hypoxemic respiratory failure, secondary to her left lower lobe pneumonia. S/P transesophageal echocardiogram, and cardioversion, on July 13, 2023. Chronic atrial fibrillation/flutter, currently on warfarin. History of mild intermittent chronic bronchial asthma. Hyperlipidemia. Hypertension. Anxiety/depression. Diabetes mellitus. Lifelong non-smoker. Plan: Plan dated July 13, 2023. The patient continues on Zosyn. He is on room air. He is getting saline at 20 cc an hour. His transesophageal echocardiogram, revealed normal LV function, without evidence of intracardiac thrombus. The patient will then undergo a cardioversion. His procalcitonin level was 0.83. Labs, x-rays, and medications are reviewed. The patient's overall prognosis remains guarded. We will continue to follow the patient, and make recommendations along the way. Plan dated July 14, 2023. The patient is seen today in room 355. On auscultation, his rhythm is regular, but on the monitor, the patient is in atrial flutter. The patient had a transesophageal echocardiogram, and cardioversion yesterday. The patient continues on warfarin. Labs, x-rays, and medications are reviewed. The patient's overall prognosis remains very guarded. We will continue to follow the patient, and make recommendations along the way. Time with Patient: Less than 30
[2023-07-14 12:53] VITALS: BP 116/77; PULSE 70; RESP 19; TEMP 98.6
[2023-07-14 13:41] VITALS: BMI 42.7
--- NOTE | 2023-07-14 14:46 | P.DS ---
Providers Date of admission: 07/09/23 19:44 Attending physician: Eve Bowden Consults: 07/10/23 09:41 Consult Physician Routine Consulting Provider: Svitlana Fuentes Consult Reason/Comments: Pneumonia, respiratory failure Do you want consulting provider notified?: Yes 07/10/23 09:51 Consult Physician Routine Consulting Provider: Sendy Cowart Consult Reason/Comments: Recurrent pneumonias Do you want consulting provider notified?: Yes 07/10/23 10:18 Consult Physician Routine Consulting Provider: Bebo Bahena Consult Reason/Comments: Afib RVR Do you want consulting provider notified?: Yes Primary care physician: Ronan Frazier MD Patient Condition at Discharge: Good Plan - Discharge Summary Discharge Rx Participant: No New Discharge Prescriptions: New Verapamil [Isoptin] 40 mg PO BID #30 tab cefUROXime axetiL [Ceftin] 500 mg PO BID 7 Days #14 tab Continue traMADol HCL 50 mg PO TID PRN PRN Reason: Pain Omalizumab [Xolair] 300 mg SQ Q30D Cyclobenzaprine [Flexeril] 10 mg PO HS Niacin 1,000 mg PO DAILY DULoxetine HCL [Cymbalta] 60 mg PO DAILY Cyanocobalamin [Vitamin B-12] 500 mcg PO HS Ipratropium-Albuterol Nebulize [Duoneb 0.5 mg-3 mg/3 ml Soln] 3 ml INHALATION RT-Q4H PRN PRN Reason: Shortness Of Breath Magnesium Oxide [Magox 400] 800 mg PO DAILY Warfarin [Coumadin] 7.5 mg PO TUSA@2100 Dapagliflozin Propanediol [Farxiga] 10 mg PO DAILY Albuterol Inhaler [Ventolin Hfa Inhaler] 1 - 2 puff INHALATION RT-Q6H PRN PRN Reason: Shortness Of Breath Beclomethasone Dipropionate [Qvar 80mcg Redihaler] 1 puff INHALATION RT-BID PRN PRN Reason: Shortness Of Breath Omeprazole [PriLOSEC] 20 mg PO DAILY Montelukast [Singulair] 10 mg PO DAILY Ergocalciferol [Vitamin D2 (1250 Mcg = 25395 Iu)] 1,250 mcg PO Q14D calcitrioL 0.25 mcg PO HS Pravastatin Sodium [Pravachol] 40 mg PO HS Warfarin [Coumadin] 5 mg PO SUMOWETHFR@2100 allopurinoL 100 mg PO HS traZODone HCL 100 mg PO HS Pyridoxine HCl (Vitamin B6) [Vitamin B-6] 100 mg PO DAILY EPINEPHrine (Auto Inject) [Epipen] 0.3 mg IM ONCE PRN PRN Reason: Anaphylaxis Tirzepatide [Mounjaro] 10 mg SQ WE Pregabalin [Lyrica] 50 mg PO HS Metoprolol Tartrate [Lopressor] 100 mg PO BID Discharge Medication List Cyanocobalamin [Vitamin B-12] 500 mcg PO HS 02/23/23 [History] Cyclobenzaprine [Flexeril] 10 mg PO HS 02/23/23 [History] DULoxetine HCL [Cymbalta] 60 mg PO DAILY 02/23/23 [History] Ergocalciferol [Vitamin D2 (1250 Mcg = 77777 Iu)] 1,250 mcg PO Q14D 02/23/23 [History] Montelukast [Singulair] 10 mg PO DAILY 02/23/23 [History] Niacin 1,000 mg PO DAILY 02/23/23 [History] Omalizumab [Xolair] 300 mg SQ Q30D 02/23/23 [History] Omeprazole [PriLOSEC] 20 mg PO DAILY 02/23/23 [History] Pravastatin Sodium [Pravachol] 40 mg PO HS 02/23/23 [History] Pyridoxine HCl (Vitamin B6) [Vitamin B-6] 100 mg PO DAILY 02/23/23 [History] Warfarin [Coumadin] 5 mg PO SUMOWETHFR@209902/23/23 [History] allopurinoL 100 mg PO HS 02/23/23 [History] calcitrioL 0.25 mcg PO HS 02/23/23 [History] traMADol HCL 50 mg PO TID PRN 02/23/23 [History] traZODone HCL 100 mg PO HS 02/23/23 [History] Albuterol Inhaler [Ventolin Hfa Inhaler] 1 - 2 puff INHALATION RT-Q6H PRN 06/04/23 [History] Beclomethasone Dipropionate [Qvar 80mcg Redihaler] 1 puff INHALATION RT-BID PRN 06/04/23 [History] Dapagliflozin Propanediol [Farxiga] 10 mg PO DAILY 06/04/23 [History] EPINEPHrine (Auto Inject) [Epipen] 0.3 mg IM ONCE PRN 06/04/23 [History] Ipratropium-Albuterol Nebulize [Duoneb 0.5 mg-3 mg/3 ml Soln] 3 ml INHALATION RT-Q4H PRN 06/04/23 [History] Magnesium Oxide [Magox 400] 800 mg PO DAILY 06/04/23 [History] Pregabalin [Lyrica] 50 mg PO HS 06/04/23 [History] Tirzepatide [Mounjaro] 10 mg SQ WE 06/04/23 [History] Warfarin [Coumadin] 7.5 mg PO TUSA@2100 06/04/23 [History] Metoprolol Tartrate [Lopressor] 100 mg PO BID 07/09/23 [History] Verapamil [Isoptin] 40 mg PO BID #30 tab 07/14/23 [Rx] cefUROXime axetiL [Ceftin] 500 mg PO BID 7 Days #14 tab 07/14/23 [Rx] Follow up Appointment(s)/Referral(s): Ronan Frazier MD [Primary Care Provider] - 1-2 days Svitlana Fuentes MD [STAFF PHYSICIAN] - 2 Weeks (lung doctor ) Bebo Bahena MD [STAFF PHYSICIAN] - 1 Week (heart doctor) Activity/Diet/Wound Care/Special Instructions: heart healthy diet activity is restricted till you see your doctor Discharge Disposition: HOME WITH HOME HEALTH SERVICES
[2023-07-14 16:12] LABS: Glucose,Whole Blood 140 mg/dL (70-110)
--- NOTE | 2023-07-14 16:17 | P.PN ---
Subjective Progress Note Date: 07/14/23 Principal diagnosis: Reason for follow-up is sepsis on admission and pneumonia Patient is a 62-year-old male with a past medical history significant for atrial fibrillation diabetes mellitus DVT CVA TIA patient has been brought into the hospital as a transfer from [facility] where the patient was initially brought in for generalized weakness and fatigue, patient be diagnosed with sepsis related to pneumonia prompting this consultation. On today's evaluation that is 07/14/2023, Patient is afebrile patient is currently on room air and denies having any shortness of breath, the patient denies any chest pain and cough is decreased in intensity not bring up any sputum h, the patient denies any nausea vomiting did not have any abdominal pain and no diarrhea 4 patient did have INR of 2.5 Objective - Vital Signs Vital signs: Vital Signs Temp 98.6 F 07/14/23 12:00 Pulse 70 07/14/23 14:00 Resp 19 07/14/23 14:00 BP 116/77 07/14/23 12:00 Pulse Ox 98 07/14/23 07:59 FiO2 3 07/10/23 14:00 Intake & Output 07/13/23 07/14/23 07/14/23 18:59 06:59 18:59 Intake Total 270 40 776 Balance 270 40 776 Weight 120.202 kg Intake: IV 50 Oral 220 40 776 Other: Voiding Method Urinal Urinal Urinal # Voids 2 1 # Bowel Movements 1 - Exam GENERAL DESCRIPTION: Middle-age male lying in bed in no distress RESPIRATORY SYSTEM: Unlabored breathing , decreased breath sounds at bases HEART: S1 S2 regular rate and rhythm , ABDOMEN: Soft , no tenderness EXTREMITIES: No edema feet - Labs CBC & Chem 7: 07/13/23 06:51 07/13/23 06:51 Labs: Abnormal Lab Results - Last 24 Hours (Table) 07/13/23 07/14/23 07/14/23 Range/Units 20:23 08:30 16:11 PT 24.9 H (10.0-12.5) sec INR 2.5 H (<1.2) POC Glucose (mg/dL) 152 H 140 H (70-110) mg/dL Microbiology - Last 24 Hours (Table) 07/10/23 12:54 Blood Culture - Preliminary Blood 07/11/23 09:20 Blood Culture - Preliminary Blood Assessment and Plan (1) Pneumonia Current Visit: Yes Status: Acute Code(s): J18.9 - PNEUMONIA, UNSPECIFIED ORGANISM SNOMED Code(s): 782053606 Plan: 1patient presented hospital with sepsis in this patient who did have a elevated white count mild tachycardia, source of the left lower lobe pneumonia in this patient reporting repeated pneumonia for the last few months question of aspiration etiology less likely immunodeficiency 2-sputum culture not obtained procalcitonin of 0.83 IgG level pending 3-patient has shown clinical improvement and will be able to finish therapy with a short course of oral Ceftin on discharge discussed with the admitting team working on discharge Dictation was produced using real[employer] dictation software. please excuse any grammatical, word or spelling errors. Time with Patient: Less than 30
[2023-07-14] MEDS ORDERED: WARFARIN 5 MG TAB PO ONE (18:00)
--- NOTE | 2023-07-14 23:10 | P.DS ---
Providers Date of admission: 07/09/23 19:44 Attending physician: Eve Bowden Consults: 07/10/23 09:41 Consult Physician Routine Consulting Provider: Svitlana Fuentes Consult Reason/Comments: Pneumonia, respiratory failure Do you want consulting provider notified?: Yes 07/10/23 09:51 Consult Physician Routine Consulting Provider: Sendy Cowart Consult Reason/Comments: Recurrent pneumonias Do you want consulting provider notified?: Yes 07/10/23 10:18 Consult Physician Routine Consulting Provider: Bebo Bahena Consult Reason/Comments: Afib RVR Do you want consulting provider notified?: Yes Primary care physician: Ronan Frazier MD Hospital Course: Diagnoses: Bacterial pneumonia, left lower lobe pneumonia Acute hypoxic respiratory failure Persistent atrial fibrillation Hypertension Diabetes mellitus Hyperlipidemia GERD Hospital course: patient is a 62-year-old gentleman past medical history significant for atrial fibrillation on Coumadin, diabetes mellitus, hypertension who is a transfer from [facility] for worsening shortness of breath and generalized fatigue. Patient was found to have left lower lobe pneumonia treated with Zosyn, he has been evaluated also by pulmonary and cardiology service for his A-fib. Patient is already on warfarin and his INR therapeutic at 2.3. Patient states he has Coumadin at home and he is going to follow-up with his PCP in 3 days to check his INR where he usually does. Patient showed interval improvement in his symptoms significantly improved on the day of discharge his dyspnea and chest pain improved No other new complaint Patient is eager to go home today. Patient was cleared for discharge by all consultants including pulmonary, cardiology and infectious disease team Patient will be discharged on short course of oral antibiotics as per ID team Problems and management plan were discussed with the patient and he verbalized understanding and acceptance Patient was found stable and can be discharged home in guarded prognosis however he needs follow-up as an outpatient. Patient was instructed to follow up with PCP within one week and patient agrees Patient was instructed to follow-up with adult school counselor Dr. Dahl in 1 week and applications engineering manager Dr. Ledesma in 1 to 2 weeks and he agrees Physical exam Gen: patient is a AAOx3, no distress CVS: S1-S2, RRR, no murmur Lungs: B/L CTA, no wheezing Abdomen: soft, no distention, no tenderness, positive bowel sounds Extremity: no leg edema or induration Time spent more than 35 minutes Patient Condition at Discharge: Good Plan - Discharge Summary Discharge Rx Participant: No New Discharge Prescriptions: New Verapamil [Isoptin] 40 mg PO BID #30 tab cefUROXime axetiL [Ceftin] 500 mg PO BID 7 Days #14 tab Continue traMADol HCL 50 mg PO TID PRN PRN Reason: Pain Omalizumab [Xolair] 300 mg SQ Q30D Cyclobenzaprine [Flexeril] 10 mg PO HS Niacin 1,000 mg PO DAILY DULoxetine HCL [Cymbalta] 60 mg PO DAILY Cyanocobalamin [Vitamin B-12] 500 mcg PO HS Ipratropium-Albuterol Nebulize [Duoneb 0.5 mg-3 mg/3 ml Soln] 3 ml INHALATION RT-Q4H PRN PRN Reason: Shortness Of Breath Magnesium Oxide [Magox 400] 800 mg PO DAILY Warfarin [Coumadin] 7.5 mg PO TUSA@2100 Dapagliflozin Propanediol [Farxiga] 10 mg PO DAILY Albuterol Inhaler [Ventolin Hfa Inhaler] 1 - 2 puff INHALATION RT-Q6H PRN PRN Reason: Shortness Of Breath Beclomethasone Dipropionate [Qvar 80mcg Redihaler] 1 puff INHALATION RT-BID PRN PRN Reason: Shortness Of Breath Omeprazole [PriLOSEC] 20 mg PO DAILY Montelukast [Singulair] 10 mg PO DAILY Ergocalciferol [Vitamin D2 (1250 Mcg = 86703 Iu)] 1,250 mcg PO Q14D calcitrioL 0.25 mcg PO HS Pravastatin Sodium [Pravachol] 40 mg PO HS Warfarin [Coumadin] 5 mg PO SUMOWETHFR@2100 allopurinoL 100 mg PO HS traZODone HCL 100 mg PO HS Pyridoxine HCl (Vitamin B6) [Vitamin B-6] 100 mg PO DAILY EPINEPHrine (Auto Inject) [Epipen] 0.3 mg IM ONCE PRN PRN Reason: Anaphylaxis Tirzepatide [Mounjaro] 10 mg SQ WE Pregabalin [Lyrica] 50 mg PO HS Metoprolol Tartrate [Lopressor] 100 mg PO BID Discharge Medication List Cyanocobalamin [Vitamin B-12] 500 mcg PO HS 02/23/23 [History] Cyclobenzaprine [Flexeril] 10 mg PO HS 02/23/23 [History] DULoxetine HCL [Cymbalta] 60 mg PO DAILY 02/23/23 [History] Ergocalciferol [Vitamin D2 (1250 Mcg = 63698 Iu)] 1,250 mcg PO Q14D 02/23/23 [History] Montelukast [Singulair] 10 mg PO DAILY 02/23/23 [History] Niacin 1,000 mg PO DAILY 02/23/23 [History] Omalizumab [Xolair] 300 mg SQ Q30D 02/23/23 [History] Omeprazole [PriLOSEC] 20 mg PO DAILY 02/23/23 [History] Pravastatin Sodium [Pravachol] 40 mg PO HS 02/23/23 [History] Pyridoxine HCl (Vitamin B6) [Vitamin B-6] 100 mg PO DAILY 02/23/23 [History] Warfarin [Coumadin] 5 mg PO SUMOWETHFR@2100 02/23/23 [History] allopurinoL 100 mg PO HS 02/23/23 [History] calcitrioL 0.25 mcg PO HS 02/23/23 [History] traMADol HCL 50 mg PO TID PRN 02/23/23 [History] traZODone HCL 100 mg PO HS 02/23/23 [History] Albuterol Inhaler [Ventolin Hfa Inhaler] 1 - 2 puff INHALATION RT-Q6H PRN 06/04/23 [History] Beclomethasone Dipropionate [Qvar 80mcg Redihaler] 1 puff INHALATION RT-BID PRN 06/04/23 [History] Dapagliflozin Propanediol [Farxiga] 10 mg PO DAILY 06/04/23 [History] EPINEPHrine (Auto Inject) [Epipen] 0.3 mg IM ONCE PRN 06/04/23 [History] Ipratropium-Albuterol Nebulize [Duoneb 0.5 mg-3 mg/3 ml Soln] 3 ml INHALATION RT-Q4H PRN 06/04/23 [History] Magnesium Oxide [Magox 400] 800 mg PO DAILY 06/04/23 [History] Pregabalin [Lyrica] 50 mg PO HS 06/04/23 [History] Tirzepatide [Mounjaro] 10 mg SQ WE 06/04/23 [History] Warfarin [Coumadin] 7.5 mg PO TUSA@2100 06/04/23 [History] Metoprolol Tartrate [Lopressor] 100 mg PO BID 07/09/23 [History] Verapamil [Isoptin] 40 mg PO BID #30 tab 07/14/23 [Rx] cefUROXime axetiL [Ceftin] 500 mg PO BID 7 Days #14 tab 07/14/23 [Rx] Follow up Appointment(s)/Referral(s): Bebo Bahena MD [STAFF PHYSICIAN] - 07/30/23 3:45 pm (heart doctor) Ronan Frazier MD [Primary Care Provider] - 07/16/23 1:00 pm Svitlana Fuentes MD [STAFF PHYSICIAN] - 08/06/23 9:30 am (lung doctor ) Patient Instructions/Handouts: Viral Pneumonia (DC) Activity/Diet/Wound Care/Special Instructions: heart healthy diet activity is restricted till you see your doctor Discharge Disposition: HOME WITH HOME HEALTH SERVICES
[2023-07-15] MEDS ORDERED: ERGOCALCIFEROL 1,250 MCG (50,000 IU) CAPSULE PO SCH (09:00)
== END 2023-07-14 17:19 | disposition home health service (06) | DRG 193 ==
LOC: EC 17:14 → 3SCARD 19:44
PROVIDERS: ADMIT Hospitalist; ATTEND Hospitalist
PROC: B24BZZ4 Ultrasonography of Heart with Aorta, Transesophageal (ICD-10-PCS; principal; 2023-07-13 07:30)
DX: J15.9 Unspecified bacterial pneumonia (principal); J96.01 Acute respiratory failure with hypoxia; I48.21 Permanent atrial fibrillation; Z68.41 Body mass index [BMI] 40.0-44.9, adult; I31.39 Other pericardial effusion (noninflammatory); I48.92 Unspecified atrial flutter; E89.6 Postprocedural adrenocortical (-medullary) hypofunction; E87.20 Acidosis, unspecified; I12.9 Hypertensive chronic kidney disease with stage 1 through stage 4 chronic kidney disease, or unspecified chronic kidney disease; G47.30 Sleep apnea, unspecified; E11.22 Type 2 diabetes mellitus with diabetic chronic kidney disease; E11.65 Type 2 diabetes mellitus with hyperglycemia; N18.2 Chronic kidney disease, stage 2 (mild); Z79.01 Long term (current) use of anticoagulants; I10 Essential (primary) hypertension; E11.51 Type 2 diabetes mellitus with diabetic peripheral angiopathy without gangrene; K22.70 Barrett's esophagus without dysplasia; E66.01 Morbid (severe) obesity due to excess calories; E78.5 Hyperlipidemia, unspecified; F32.A Depression, unspecified; F41.9 Anxiety disorder, unspecified; M10.9 Gout, unspecified; K21.9 Gastro-esophageal reflux disease without esophagitis; Z86.73 Personal history of transient ischemic attack (TIA), and cerebral infarction without residual deficits; Z79.84 Long term (current) use of oral hypoglycemic drugs; Z79.899 Other long term (current) drug therapy; Z87.01 Personal history of pneumonia (recurrent); Z86.718 Personal history of other venous thrombosis and embolism
CPT/HCPCS: 71045; 76604; 80053; 84145; 85025; 85610; 86355; 86357; 86359; 86360; 87040; 87070; 87449; 92960; 93005; 93312; 93320; 93325; 94760; 96361; 96365; 96366; 96368; 99285

== ENCOUNTER 2024-04-01 05:38 | Day surgery (SDC) | payer OTHER ==
[2024-04-01] MEDS: IV FLUID CONTINUATION 1,000 ML IV ONE ×2 (06:48→13:02)
[2024-04-01 06:57] LABS: Glucose,Whole Blood 133 mg/dL (70-110)
[2024-04-01] MEDS: LACTATED RINGERS 1,000 ML IV SCH ×2 (07:01→13:02)
[2024-04-01] MEDS: ACETAMINOPHEN TAB 500 MG TAB PO PRN (07:02)
[2024-04-01] MEDS: fentaNYL (PF) 50 MCG/ML 2 ML AMP IVP STA (07:05)
[2024-04-01] MEDS: MIDAZOLAM 2 MG/2 ML VIAL IV PRN (07:05)
[2024-04-01 07:19] LABS: INR 1.2 (<1.2); Prothrombin Time 12.7 sec (10.0-12.5)
[2024-04-01] MEDS: HEPARIN SODIUM,PORCINE 5,000 UNIT/ML 1 ML VIAL SQ PRN (07:19)
[2024-04-01] MEDS: DEXAMETHASONE SOD PHOSPHATE 4 MG/ML 1 ML VIAL IV ONE (07:19)
[2024-04-01] MEDS: ONDANSETRON 4 MG/2 ML VIAL IVP ONE (07:19)
[2024-04-01] MEDS ORDERED: MIDAZOLAM 2 MG/2 ML VIAL ONE (07:42)
[2024-04-01] MEDS ORDERED: GLYCOPYRROLATE 0.2 MG/ML 2 ML VIAL ONE (07:42)
[2024-04-01] MEDS ORDERED: ROCURONIUM 10 MG/ML (5 ML VIAL) IV ONE (07:42)
[2024-04-01] MEDS ORDERED: LIDOCAINE 1% INJ 10MG/ML (20 ML MDV) ONE (07:42)
[2024-04-01] MEDS ORDERED: PROPOFOL 10 MG/ML 20 ML VIAL IV ONE (07:42)
[2024-04-01] MEDS ORDERED: ROPIVACAINE 5 MG/ML 30 ML VIAL ONE (07:42)
[2024-04-01] MEDS ORDERED: fentaNYL (PF) 50 MCG/ML 2 ML AMP ONE (07:42)
[2024-04-01] MEDS ORDERED: SUCCINYLCHOLINE CHLORIDE 200 MG/10 ML VIAL IV ONE (07:42)
[2024-04-01] MEDS ORDERED: NEOSTIGMINE 1 MG/ML 10 ML VIAL ONE (07:42)
[2024-04-01] MEDS ORDERED: SODIUM CHLORIDE 0.9% (PF) 10 ML VIAL ONE (07:42)
--- NOTE | 2024-04-01 07:43 | P.GSHP ---
History of Present Illness H&P Date: 04/01/24 Chief Complaint: Incisional hernia This a 63-year-old male who is developed incisional hernia after exploratory laparotomy. Patient is developed incisional hernia on his midline scar. Patient is morbid obese BMI 45. Past Medical History Past Medical History: Atrial Fibrillation, Asthma, CVA/TIA, Diabetes Mellitus, Deep Vein Thrombosis (DVT), GERD/Reflux, Renal Disease, Sleep Apnea/CPAP/BIPAP Additional Past Medical History / Comment(s): MARTINEZ'S ESOPHAGUS, GOUT, MULT. TIA'S, STAGE 2 KIDNEY DISEASE, CONN DISEASE, uses CPAP History of Any Multi-Drug Resistant Organisms: None Reported Past Surgical History: Cholecystectomy, Heart Catheterization, Hernia Repair Additional Past Surgical History / Comment(s): ADRENAL GLAND REMOVAL (CONN DISEASE), STAN FUNDOPLICATION, MULT. HERNIA REPAIRS, carpal tunnel Past Anesthesia/Blood Transfusion Reactions: No Reported Reaction Additional Past Anesthesia/Blood Transfusion Reaction / Comment(s): states one performance improvement manager at [employer] had trouble intubating him but no one else has had difficulty Smoking Status: Never smoker - Past Family History Father Family Medical History: Cancer Additional Family Medical History / Comment(s): skin & lung cancer, heart disease Medications and Allergies Home Medications Medication Instructions Recorded Confirmed Type Cyanocobalamin [Vitamin B-12] 500 mcg PO HS 02/23/23 04/01/24 History Cyclobenzaprine [Flexeril] 10 mg PO HS 02/23/23 04/01/24 History DULoxetine HCL [Cymbalta] 60 mg PO HS 02/23/23 04/01/24 History Montelukast [Singulair] 10 mg PO HS 02/23/23 04/01/24 History Niacin 1,000 mg PO DAILY 02/23/23 04/01/24 History Omeprazole [PriLOSEC] 20 mg PO HS 02/23/23 04/01/24 History Pravastatin Sodium [Pravachol] 40 mg PO HS 02/23/23 04/01/24 History Pyridoxine HCl (Vitamin B6) 100 mg PO DAILY 02/23/23 04/01/24 History [Vitamin B-6] Warfarin [Coumadin] 5 mg PO SUMOWETHFR@2100 02/23/23 04/01/24 History calcitrioL 0.25 mcg PO HS 02/23/23 04/01/24 History traMADol HCL 50 mg PO TID PRN 02/23/23 04/01/24 History traZODone HCL 100 mg PO HS 02/23/23 04/01/24 History Albuterol Inhaler [Ventolin Hfa 1 - 2 puff INHALATION RT-Q6H PRN 06/04/23 04/01/24 History Inhaler] Dapagliflozin Propanediol [Farxiga] 10 mg PO DAILY 06/04/23 04/01/24 History Ipratropium-Albuterol Nebulize 3 ml INHALATION RT-Q4H PRN 06/04/23 04/01/24 History [Duoneb 0.5 mg-3 mg/3 ml Soln] Magnesium Oxide [Magox 400] 800 mg PO DAILY 06/04/23 04/01/24 History Pregabalin [Lyrica] 50 mg PO HS PRN 06/04/23 04/01/24 History Tirzepatide [Mounjaro] 10 mg SQ WE 06/04/23 04/01/24 History Warfarin [Coumadin] 7.5 mg PO TUSA@2100 06/04/23 04/01/24 History Metoprolol Tartrate [Lopressor] 100 mg PO BID 07/09/23 04/01/24 History Verapamil [Isoptin] 40 mg PO BID #30 tab 07/14/23 04/01/24 Rx Ergocalciferol [Vitamin D2 (1250 1,250 mcg PO Q14D 03/30/24 04/01/24 History Mcg = 31696 Iu)] Furosemide [Lasix] 80 mg PO BID PRN 03/30/24 04/01/24 History metFORMIN HCL ER [Glucophage XR] 1,500 mg PO HS 03/30/24 04/01/24 History Allergies Allergy/AdvReac Type Severity Reaction Status Date / Time surgical tape Allergy Rash/Hives Uncoded 04/01/24 06:20 Surgical - Exam Vital Signs Temp Pulse Resp BP Pulse Ox 97.2 F L 59 L 18 121/57 100 04/01/24 06:20 04/01/24 06:20 04/01/24 06:20 04/01/24 06:20 04/01/24 06:20 - General well developed, well nourished, no distress - Eyes PERRL - ENT normal pinna - Neck no masses - Respiratory normal expansion - Cardiovascular Rhythm: regular - Abdomen Abdomen: soft, non tender Hernia: incisional (5 Centimeter incisional hernia) Results - Labs Abnormal Lab Results - Last 24 Hours (Table) 04/01/24 04/01/24 Range/Units 06:48 06:55 PT 12.7 H (10.0-12.5) sec INR 1.2 H (<1.2) POC Glucose (mg/dL) 133 H (70-110) mg/dL
[2024-04-01] MEDS: ceFAZolin 3 GM in SODIUM CHLORIDE 0.9% 100 ML IVPB PRN (07:45)
[2024-04-01] MEDS: LACTATED RINGERS 1,000 ML IV ONE (08:49)
[2024-04-01] MEDS ORDERED: NALOXONE 0.4 MG/ML 1 ML VIAL IV PRN (09:03)
[2024-04-01] MEDS ORDERED: ACETAMINOPHEN TAB 325 MG TAB PO PRN (09:03)
--- NOTE | 2024-04-01 09:03 | P.OP ---
Date of Procedure: 04/01/24 Preoperative Diagnosis: Incisional hernia recurrent Postoperative Diagnosis: Current incisional incarcerated hernia Procedure(s) Performed: Open repair of recurrent incisional hernia Partial omentectomy Anesthesia: MAC Surgeon: Mickey Ulloa Pathology: other (Omentum) Condition: stable Disposition: PACU Description of Procedure: The patient was placed on the operative table in the supine position. He received general endotracheal tube anesthesia. His abdomen was prepped draped you sterile fashion. The patient appears midline laparotomy scar. The scar was incised with a 15 blade. Then use electrocautery subcu tissue divided. The patient had an incisional hernia located in the midportion of the scar. There was a portion of incarcerated mentum. This was divided with electrocautery and sent to pathology. The fascia was then repaired using [id number] 0 Ethibond suture. After the fascia repair was performed. A piece of Prolene mesh was placed over top of the fascia. Secured with secure strap tacker. The hernia defect measured approximately 4 x 10 cm. A SUBHA drain is placed over top of the mesh and brought through a separate stab incision. Lidya's fascia closed with 2-0 Vicryl. Skin was closed angel. Patient Toller procedure well. Sent to recovery in stable condition.
[2024-04-01] MEDS: HYDROmorphone 0.5 MG/0.5 ML SYRINGE IVP PRN (09:12)
[2024-04-01] MEDS: ONDANSETRON 4 MG/2 ML VIAL IVP PRN (09:23)
[2024-04-01 09:37] LABS: Glucose,Whole Blood 111 mg/dL (70-110)
[2024-04-01] MEDS: droPERidol 5 MG/2 ML VIAL IVP ONE (09:43)
[2024-04-01] MEDS: KETOROLAC 15 MG/ML 1 ML VIAL IVP SCH (09:57)
--- NOTE | 2024-04-01 10:32 | P.ANPRN ---
Procedure Note - Anesthesia - Nerve Block Performed Bilateral Erector Spinae Single Time Out Performed: Yes (0705) Date of Procedure: 04/01/24 Procedure Start Time: 07:06 Procedure Stop Time: 07:11 Location of Patient: PreOp Indication: Acute Post-Operative Pain, Requested by Surgeon Specifically requested for management of pain by DrJuice: Mickey Ulloa Sedation Type: Sedate with meaningful contact maintained Preparation: Sterile Prep Position: Sitting Catheter: None Needle Types: Pajunk Needle Gauge: 21 Ultrasound used to visualize needle placement: Yes Ultrasound used to observe medication spread: Yes Injectate: 0.5% Ropivacaine (see comment for volume) (15cc+10cc nacl pf each side) Blood Aspirated: No Pain Paresthesia on Injection Noted: No Resistance on Injection: Normal Image Stored and Saved: Yes Events: Uneventful and Well Tolerated
[2024-04-01] MEDS: SCOPOLAMINE 1 MG/72 HR PATCH TRANSDERM ONE (13:05)
[2024-04-01 17:10] LABS: Glucose,Whole Blood 190 mg/dL (70-110)
[2024-04-01] MEDS: HYDROcodone/APAP 5-325MG 1 EACH TAB PO PRN (18:11)
[2024-04-01] MEDS ORDERED: IPRATROPIUM-ALBUTEROL 3 ML NEB INHALATION PRN (19:38)
[2024-04-01] MEDS ORDERED: ALBUTEROL NEBULIZED 2.5 MG/3 ML INHALATION PRN (19:38)
[2024-04-01] MEDS ORDERED: CYCLOBENZAPRINE 10 MG TAB PO PRN (19:38)
[2024-04-01] MEDS ORDERED: PREGABALIN 50 MG CAP PO PRN (19:38)
[2024-04-01] MEDS: MONTELUKAST 10 MG TAB PO SCH (20:16)
[2024-04-01] MEDS: PRAVASTATIN SODIUM 40 MG TAB PO SCH (20:16)
[2024-04-01] MEDS: DOCUSATE 100 MG CAP PO SCH (20:16)
[2024-04-01] MEDS: DULoxetine HCL 60 MG CAPSULE.DR PO SCH (20:16)
[2024-04-01] MEDS: traZODone HCL 100 MG TAB PO SCH (20:16)
[2024-04-01 21:29] LABS: Glucose,Whole Blood 353 mg/dL (70-110)
[2024-04-01] MEDS: INSULIN ASPART (NovoLOG) 100 UNIT/ML VIAL SQ SCH (22:03)
[2024-04-02 06:23] LABS: Glucose,Whole Blood 112 mg/dL (70-110)
[2024-04-02] MEDS: PANTOPRAZOLE 40 MG TABLET PO SCH (06:34)
[2024-04-02] MEDS: ENOXAPARIN 40 MG/0.4 ML SYRINGE SQ SCH (09:27)
--- NOTE | 2024-04-02 10:20 | P.PN ---
Subjective Progress Note Date: 04/02/24 NAEON. No N/V. No F/C. No SOB or CP. Abdominal pain controlled on current regimen. Ambulatory and voiding. Objective - Vital Signs Vital signs: Vital Signs Temp 98 F 04/02/24 06:55 Pulse 58 L 04/02/24 06:55 Resp 18 04/02/24 06:55 BP 151/71 04/02/24 06:55 Pulse Ox 95 04/02/24 06:55 FiO2 Intake & Output 04/01/24 04/02/24 04/02/24 18:59 06:59 18:59 Intake Total 1900 360 Output Total 60 40 Balance 1840 360 -40 Weight 127.4 kg Intake: IV 1900 Oral 360 Output: Drainage 40 Right Abdomen 40 Estimated Blood Loss 60 Other: Voiding Method Toilet # Voids 2 - Exam Gen: AxO, NAD Pulm: non-labored respirations Abd: soft, non-tender, non-distended Incisions; C/D/I, no strikethrough or erythema seen SUBHA: C/D/I; serosang output seen Extrem: no edema seen - Labs Labs: Abnormal Lab Results - Last 24 Hours (Table) 04/01/24 04/01/24 04/02/24 Range/Units 17:09 21:28 06:22 POC Glucose (mg/dL) 190 H 353 H 112 H (70-110) mg/dL Assessment and Plan Assessment: Patient is a 63 year old male who is S/P incisional hernia repair Plan: -Diet as tolerated -PRN pain and nausea control -Encourage ambulation -DVT/GI PPx Dl Eastman M.D. General Surgery
[2024-04-02 11:41] LABS: Glucose,Whole Blood 113 mg/dL (70-110)
[2024-04-02] MEDS: ERGOCALCIFEROL 1,250 MCG (50,000 IU) CAPSULE PO SCH (12:25)
--- NOTE | 2024-04-02 13:27 | P.CONS ---
History of Present Illness - Reason for Consult Consult date: 04/02/24 Medical management - History of Present Illness History of present illness; patient is a 63-year-old gentleman with past medical history significant for hyperlipidemia, COPD, who presented the hospital for elective hernia repair. Patient had history of exploratory laparotomy and following that developed incisional hernia for which he presented to the hospital. Patient underwent open repair of recurrent incisional hernia. Postoperatively internal medicine team were consulted for medical management REVIEW OF SYSTEMS: CONSTITUTIONAL: No fever, no malaise, no fatigue. HEENT: No recent visual problems or hearing problems. Denied any sore throat. CARDIOVASCULAR: No chest pain, orthopnea, PND, no palpitations, no syncope. PULMONARY: No shortness of breath, no cough, no hemoptysis. GASTROINTESTINAL: No diarrhea, no nausea, no vomiting, no abdominal pain. NEUROLOGICAL: No headaches, no weakness, no numbness. HEMATOLOGICAL: Denies any bleeding or petechiae. GENITOURINARY: Denies any burning micturition, frequency, or urgency. MUSCULOSKELETAL/RHEUMATOLOGICAL: Denies any joint pain, swelling, or any muscle pain. ENDOCRINE: Denies any polyuria or polydipsia. The rest of the 14-point review of systems is negative. PHYSICAL EXAMINATION: GENERAL: The patient is alert and oriented x3, not in any acute distress. Well developed, well nourished. HEENT: Pupils are round and equally reacting to light. EOMI. No scleral icterus. No conjunctival pallor. Normocephalic, atraumatic. No pharyngeal erythema. No thyromegaly. CARDIOVASCULAR: S1 and S2 present. No murmurs, rubs, or gallops. PULMONARY: Chest is clear to auscultation, no wheezing or crackles. ABDOMEN: Soft, surgical incision seen. MUSCULOSKELETAL: No joint swelling or deformity. EXTREMITIES: No cyanosis, clubbing, or pedal edema. NEUROLOGICAL: Gross neurological examination did not reveal any focal deficits. SKIN: No rashes. Assessment and plan Recurrent incisional hernia status post open repair. Persistent atrial fibrillation Hypertension Diabetes mellitus Hyperlipidemia GERD Monitor vital signs Monitor CBC Monitor CMP Continue pain management per surgery Resume anticoagulation once okay with surgery Blood pressure medications are not resumed as patient is currently normotensive Resume Lipitor Resume breathing treatments and montelukast Labs and medication were reviewed.. Continue same treatment. Continue with sym ptomatic treatment. Resume home medication. Monitor labs and vitals. DVT and GI prophylaxis. Further recommendations as per clinical course of the patient Dictation was produced using [employer] dictation software. please excuse any grammatical, word or spelling errors. Past Medical History Past Medical History: Atrial Fibrillation, Asthma, CVA/TIA, Diabetes Mellitus, Deep Vein Thrombosis (DVT), GERD/Reflux, Renal Disease, Sleep Apnea/CPAP/BIPAP Additional Past Medical History / Comment(s): MARTINEZ'S ESOPHAGUS, GOUT, MULT. TIA'S, STAGE 2 KIDNEY DISEASE, uses CPAP History of Any Multi-Drug Resistant Organisms: None Reported Past Surgical History: Cholecystectomy, Heart Catheterization, Hernia Repair, Tonsillectomy Additional Past Surgical History / Comment(s): ADRENAL GLAND REMOVAL (CONN DISEASE), STAN FUNDOPLICATION, MULT. HERNIA REPAIRS, carpal tunnel, several benign tumors removed, Past Anesthesia/Blood Transfusion Reactions: No Reported Reaction Additional Past Anesthesia/Blood Transfusion Reaction / Comm: states one seo team lead at [facility] had trouble intubating him but no one else has had difficulty Past Psychological History: Anxiety, Depression Smoking Status: Never smoker Past Alcohol Use History: None Reported Past Drug Use History: None Reported - Past Family History Father Family Medical History: Cancer Additional Family Medical History / Comment(s): skin & lung cancer, heart disease Medications and Allergies Home Medications Medication Instructions Recorded Confirmed Type Cyanocobalamin [Vitamin B-12] 500 mcg PO HS 02/23/23 04/01/24 History Cyclobenzaprine [Flexeril] 10 mg PO HS 02/23/23 04/01/24 History DULoxetine HCL [Cymbalta] 60 mg PO HS 02/23/23 04/01/24 History Montelukast [Singulair] 10 mg PO HS 02/23/23 04/01/24 History Niacin 1,000 mg PO DAILY 02/23/23 04/01/24 History Omeprazole [PriLOSEC] 20 mg PO HS 02/23/23 04/01/24 History Pravastatin Sodium [Pravachol] 40 mg PO HS 02/23/23 04/01/24 History Pyridoxine HCl (Vitamin B6) 100 mg PO DAILY 02/23/23 04/01/24 History [Vitamin B-6] Warfarin [Coumadin] 5 mg PO SUMOWETHFR@2100 02/23/23 04/01/24 History calcitrioL 0.25 mcg PO HS 02/23/23 04/01/24 History traMADol HCL 50 mg PO TID PRN 02/23/23 04/01/24 History traZODone HCL 100 mg PO HS 02/23/23 04/01/24 History Albuterol Inhaler [Ventolin Hfa 1 - 2 puff INHALATION RT-Q6H PRN 06/04/23 History Inhaler] Dapagliflozin Propanediol [Farxiga] 10 mg PO DAILY 06/04/23 04/01/24 History Ipratropium-Albuterol Nebulize 3 ml INHALATION RT-Q4H PRN 06/04/23 04/01/24 History [Duoneb 0.5 mg-3 mg/3 ml Soln] Magnesium Oxide [Magox 400] 800 mg PO DAILY 06/04/23 04/01/24 History Pregabalin [Lyrica] 50 mg PO HS PRN 06/04/23 04/01/24 History Tirzepatide [Mounjaro] 10 mg SQ WE 06/04/23 04/01/24 History Warfarin [Coumadin] 7.5 mg PO TUSA@209906/04/23 04/01/24 History Metoprolol Tartrate [Lopressor] 100 mg PO BID 07/09/23 04/01/24 History Verapamil [Isoptin] 40 mg PO BID #30 tab 07/14/23 04/01/24 Rx Ergocalciferol [Vitamin D2 (1250 1,250 mcg PO Q14D 03/30/24 04/01/24 History Mcg = 39511 Iu)] Furosemide [Lasix] 80 mg PO BID PRN 03/30/24 04/01/24 History metFORMIN HCL ER [Glucophage XR] 1,500 mg PO HS 03/30/24 04/01/24 History Acetaminophen Tab [Tylenol] 650 mg PO Q6H #30 tab 04/01/24 Rx Docusate [Colace] 100 mg PO BID #20 capsule 04/01/24 Rx Ibuprofen [Motrin] 600 mg PO Q6HR PRN #40 tab 04/01/24 Rx oxyCODONE HCL [OxyIR] 5 mg PO Q6H PRN 3 Days #10 tab 04/01/24 Rx Allergies Allergy/AdvReac Type Severity Reaction Status Date / Time surgical tape Allergy Rash/Hives Uncoded 04/01/24 06:20 Physical Exam Vitals: Vital Signs Temp Pulse Pulse Resp BP BP Pulse Ox 04/02/24 06:55 98 F 58 L 18 151/71 95 04/02/24 00:47 97.8 F 82 22 108/57 94 L 04/01/24 19:42 97.6 F 87 22 115/76 92 L 04/01/24 15:00 74 110/72 04/01/24 14:45 75 106/71 04/01/24 14:30 78 97/61 04/01/24 14:16 68 108/57 04/01/24 14:01 54 L 108/53 04/01/24 13:58 97.6 F 56 L 18 97/59 97 04/01/24 13:00 51 L 16 108/53 97 04/01/24 12:45 47 L 16 106/53 97 04/01/24 12:30 51 L 16 89/65 97 04/01/24 12:15 60 16 99/58 97 04/01/24 12:00 60 16 92/51 97 04/01/24 11:45 55 L 16 88/53 98 04/01/24 11:30 51 L 16 88/52 98 04/01/24 11:15 58 L 16 91/54 96 04/01/24 11:00 70 16 92/56 98 04/01/24 10:45 52 L 16 91/56 98 04/01/24 10:30 50 L 16 96/52 99 04/01/24 10:15 51 L 16 97/51 99 Intake and Output 04/01/24 04/02/24 04/02/24 22:59 06:59 14:59 Intake Total 360 Output Total 40 Balance 360 -40 Intake: Oral 360 Output: Drainage 40 Right Abdomen 40 Other: Voiding Method Toilet # Voids 2 Results Labs: Abnormal Lab Results - Last 24 Hours (Table) 04/01/24 04/01/24 04/02/24 Range/Units 17:09 21:28 06:22 POC Glucose (mg/dL) 190 H 353 H 112 H (70-110) mg/dL
[2024-04-02] MEDS: HYDROmorphone 1 MG/ML 1 ML SYRINGE IVP PRN (14:58)
[2024-04-02 16:40] LABS: Glucose,Whole Blood 116 mg/dL (70-110)
[2024-04-02 19:50] LABS: Glucose,Whole Blood 129 mg/dL (70-110)
[2024-04-02] MEDS: CYANOCOBALAMIN 500 MCG TAB PO SCH (20:34)
[2024-04-02] MEDS: METOPROLOL TARTRATE 50 MG TAB PO SCH (20:34)
[2024-04-02] MEDS: VERAPAMIL 40 MG TAB PO SCH (21:23)
[2024-04-03 06:15] LABS: Glucose,Whole Blood 114 mg/dL (70-110)
[2024-04-03] MEDS: DAPAGLIFLOZIN PROPANEDIOL 10 MG TABLET PO SCH (08:15)
[2024-04-03] MEDS: PYRIDOXINE 50 MG TAB PO SCH (08:16)
[2024-04-03] MEDS: NIACIN TR 500 MG CAPLET PO SCH (08:16)
[2024-04-03 09:25] LABS: HCT 47.8 % (39.6-50.0); HGB 14.8 g/dL (13.0-17.0); MCH 30.8 pg (27.0-32.0); MCV 99.4 FL (80.0-97.0); Mean Platelet Volume 10.8 FL (9.5-12.2); NRBC Per 100 WBC 0 X 10*3/uL (0.00-0.01); Platelet Count 236 X 10*3/uL (140-440); RBC 4.81 X 10*6/uL (4.40-5.60); RDW 14.8 % (11.5-14.5); WBC 8.42 X 10*3/uL (4.50-10.00)
[2024-04-03 09:26] LABS: Basophils # (A) 0.09 X 10*3/uL (0.00-0.10); Basophils % (A) 1.1 %; Eosinophils % (A) 3.6 %; Lymphocytes # (A) 1.87 X 10*3/uL (0.90-5.00); Lymphocytes % (A) 22.2 %; Monocytes # (A) 0.66 X 10*3/uL (0.20-1.00); Monocytes % (A) 7.8 %; Neutrophils # (A) 5.48 X 10*3/uL (1.80-7.70); Neutrophils % (A) 65.1 %
[2024-04-03 09:43] VITALS: RESP 17
[2024-04-03 11:04] LABS: ALT 16 U/L (10-49); AST 42 U/L (14-35); Albumin 3.3 g/dL (3.8-4.9); Albumin/Globulin Ratio 1.27 Ratio (1.60-3.17); Alkaline Phosphatase 88 U/L (41-126); BUN/Creat Ratio 17.25 Ratio (12.00-20.00); Blood Urea Nitrogen 20.7 mg/dL (9.0-27.0); Calcium 8.7 mg/dL (8.7-10.3); Carbon Dioxide 27.3 mmol/L (21.6-31.8); Chloride 105 mmol/L (96-109); Globulin 2.6 g/dL (1.6-3.3); Glucose 108 mg/dL (70-110); Potassium 4.5 mmol/L (3.5-5.5); Sodium 141 mmol/L (135-145); Total Bilirubin 0.6 mg/dL (0.3-1.2); Total Protein 5.9 g/dL (6.2-8.2)
[2024-04-03 11:41] LABS: Glucose,Whole Blood 92 mg/dL (70-110)
--- NOTE | 2024-04-03 13:06 | P.PN ---
Subjective Progress Note Date: 04/03/24 patient is a 63-year-old gentleman with past medical history significant for hyperlipidemia, COPD, who presented the hospital for elective hernia repair. Patient had history of exploratory laparotomy and following that developed incisional hernia for which he presented to the hospital. Patient underwent open repair of recurrent incisional hernia. Postoperatively internal medicine team were consulted for medical management 04/03. Patient seen and examined. Denies abdominal pain. Denies nausea or vomiting. Tolerating diet. Vital signs stable REVIEW OF SYSTEMS: CONSTITUTIONAL: No fever, no malaise,. CARDIOVASCULAR: No chest pain, no palpitations, no syncope. PULMONARY: No shortness of breath, no cough, GASTROINTESTINAL: No diarrhea, no nausea, no vomiting, no abdominal pain. NEUROLOGICAL: No headaches, no weakness, PHYSICAL EXAMINATION: GENERAL: The patient is alert and oriented x3, not in any acute distress. Well developed, well nourished. HEENT: Pupils are round and equally reacting to light. EOMI. No scleral icterus. No conjunctival pallor. Normocephalic, atraumatic. No pharyngeal erythema. No thyromegaly. CARDIOVASCULAR: S1 and S2 present. No murmurs, rubs, or gallops. PULMONARY: Chest is clear to auscultation, no wheezing or crackles. ABDOMEN: Soft, surgical incision seen. MUSCULOSKELETAL: No joint swelling or deformity. EXTREMITIES: No cyanosis, clubbing, or pedal edema. NEUROLOGICAL: Gross neurological examination did not reveal any focal deficits. SKIN: No rashes. Assessment and plan Recurrent incisional hernia status post open repair. Persistent atrial fibrillation Hypertension Diabetes mellitus Hyperlipidemia GERD Monitor vital signs Monitor CBC Monitor CMP Continue pain management per surgery Resume anticoagulation once okay with surgery Continue Lopressor, verapamil Continue pravastatin Continue montelukast General Surgery following Labs and medication were reviewed.. Continue same treatment. Continue with symptomatic treatment. Resume home medication. Monitor labs and vitals. DVT and GI prophylaxis. Further recommendations as per clinical course of the patient Dictation was produced using [employer] dictation software. please excuse any grammatical, word or spelling errors. Objective - Vital Signs Vital signs: Vital Signs Temp 98.2 F 04/03/24 07:13 Pulse 53 L 04/03/24 07:13 Resp 17 04/03/24 07:13 BP 110/72 04/03/24 07:13 Pulse Ox 97 12/22/24 07:13 FiO2 Intake & Output 04/02/24 04/03/24 04/03/24 18:59 06:59 18:59 Intake Total 240 200 Output Total 70 40 Balance -70 240 160 Intake: Oral 240 200 Output: Drainage 70 40 Right Abdomen 70 40 Other: Voiding Method Toilet # Voids 2 1 - Labs CBC & Chem 7: 04/03/24 06:18 04/03/24 06:18 Labs: Abnormal Lab Results - Last 24 Hours (Table) 04/02/24 04/02/24 04/02/24 Range/Units 11:39 16:39 19:49 MCV (80.0-97.0) FL MCHC (32.0-37.0) g/dL RDW (11.5-14.5) % POC Glucose (mg/dL) 113 H 116 H 129 H (70-110) mg/dL 04/03/24 04/03/24 Range/Units 06:14 06:18 MCV 99.4 H (80.0-97.0) FL MCHC 31.0 L (32.0-37.0) g/dL RDW 14.8 H (11.5-14.5) % POC Glucose (mg/dL) 114 H (70-110) mg/dL
--- NOTE | 2024-04-03 14:36 | P.DS ---
Providers Expected date of discharge: 04/03/24 Attending physician: Mickey Ulloa Consults: 04/01/24 09:03 Consult Physician Routine Consulting Provider: Eve Bowden Consult Reason/Comments: med manage Do you want consulting provider notified?: Yes Primary care physician: Nguyen Jimenez, [facility] Hospital Course: CHIEF COMPLAINT: Incisional hernia HISTORY OF PRESENT ILLNESS: The patient is a 63-year-old male status post open incisional hernia repair. Family is at bedside. Patient reports feeling better today compared to yesterday. Pain is more well-controlled. ROS: No reports of nausea and vomiting. No fevers or chills. No new chest pain. No productive sputum. Morbid obesity, BMI 45.3. Obstructive sleep apnea PHYSICAL EXAM: VITAL SIGNS: Reviewed CONSTITUTIONAL: Well developed and in no acute distress. EYES: Conjuctivae without sclera icterus. Extraocular movements grossly intact. HEAD, EARS, NOSE, THROAT: Moist buccal mucosa. Head is atraumatic, normocephalic. Hears conversational speech. No nasal drainage. RESPIRATORY: Non-labored respirations and equal bilateral excursions. CARDIOVASCULAR: Palpable 2+ radial pulses. ABDOMEN: Dressing intact. SUBHA serosanguineous. MUSCULOSKELETAL: No gross deformity of the lower extremities noted. No clubbing. No cyanosis. SKIN: Good skin turgor. Well perfused. NEUROLOGIC: Cranial nerves II through XII grossly intact. No focal or lateralizing signs. PSYCH: Appropriate affect. Alert and oriented to person, place and time. CLINICAL LABS: Reviewed. WBC and hemoglobin within normal. ASSESSMENT: 1. Incisional hernia 2. Morbid obesity excess calories, BMI 45.3 3. Obstructive sleep apnea PLAN: 1. Patient is clinically doing well may be discharged home 2. Follow-up with index surgeon within a week. 3. SUBHA drain teaching upon discharge Patient Condition at Discharge: Stable Plan - Discharge Summary Discharge Rx Participant: No New Discharge Prescriptions: New Docusate [Colace] 100 mg PO BID #20 capsule Ibuprofen [Motrin] 600 mg PO Q6HR PRN #40 tab PRN Reason: Pain oxyCODONE HCL [OxyIR] 5 mg PO Q6H PRN 3 Days #10 tab PRN Reason: Pain Acetaminophen Tab [Tylenol] 650 mg PO Q6H #30 tab Continue traMADol HCL 50 mg PO TID PRN PRN Reason: Pain Cyclobenzaprine [Flexeril] 10 mg PO HS Niacin 1,000 mg PO DAILY DULoxetine HCL [Cymbalta] 60 mg PO HS Cyanocobalamin [Vitamin B-12] 500 mcg PO HS Ipratropium-Albuterol Nebulize [Duoneb 0.5 mg-3 mg/3 ml Soln] 3 ml INHALATION RT-Q4H PRN PRN Reason: Shortness Of Breath Magnesium Oxide [Magox 400] 800 mg PO DAILY Warfarin [Coumadin] 7.5 mg PO TUSA@2100 Dapagliflozin Propanediol [Farxiga] 10 mg PO DAILY Albuterol Inhaler [Ventolin Hfa Inhaler] 1 - 2 puff INHALATION RT-Q6H PRN PRN Reason: Shortness Of Breath Verapamil [Isoptin] 40 mg PO BID #30 tab metFORMIN HCL ER [Glucophage XR] 1,500 mg PO HS Furosemide [Lasix] 80 mg PO BID PRN PRN Reason: fluid retention Ergocalciferol [Vitamin D2 (1250 Mcg = 17968 Iu)] 1,250 mcg PO Q14D Omeprazole [PriLOSEC] 20 mg PO HS Montelukast [Singulair] 10 mg PO HS calcitrioL 0.25 mcg PO HS Pravastatin Sodium [Pravachol] 40 mg PO HS Warfarin [Coumadin] 5 mg PO SUMOWETHFR@2100 traZODone HCL 100 mg PO HS Pyridoxine HCl (Vitamin B6) [Vitamin B-6] 100 mg PO DAILY Tirzepatide [Mounjaro] 10 mg SQ WE Pregabalin [Lyrica] 50 mg PO HS PRN PRN Reason: Pain Metoprolol Tartrate [Lopressor] 100 mg PO BID Discharge Medication List Cyanocobalamin [Vitamin B-12] 500 mcg PO HS 02/23/23 [History] Cyclobenzaprine [Flexeril] 10 mg PO HS 02/23/23 [History] DULoxetine HCL [Cymbalta] 60 mg PO HS 02/23/23 [History] Montelukast [Singulair] 10 mg PO HS 02/23/23 [History] Niacin 1,000 mg PO DAILY 02/23/23 [History] Omeprazole [PriLOSEC] 20 mg PO HS 02/23/23 [History] Pravastatin Sodium [Pravachol] 40 mg PO HS 02/23/23 [History] Pyridoxine HCl (Vitamin B6) [Vitamin B-6] 100 mg PO DAILY 02/23/23 [History] Warfarin [Coumadin] 5 mg PO SUMOWETHFR@209902/23/23 [History] calcitrioL 0.25 mcg PO HS 02/23/23 [History] traMADol HCL 50 mg PO TID PRN 02/23/23 [History] traZODone HCL 100 mg PO HS 02/23/23 [History] Albuterol Inhaler [Ventolin Hfa Inhaler] 1 - 2 puff INHALATION RT-Q6H PRN 06/04/23 [History] Dapagliflozin Propanediol [Farxiga] 10 mg PO DAILY 06/04/23 [History] Ipratropium-Albuterol Nebulize [Duoneb 0.5 mg-3 mg/3 ml Soln] 3 ml INHALATION RT-Q4H PRN 06/04/23 [History] Magnesium Oxide [Magox 400] 800 mg PO DAILY 06/04/23 [History] Pregabalin [Lyrica] 50 mg PO HS PRN 06/04/23 [History] Tirzepatide [Mounjaro] 10 mg SQ WE 06/04/23 [History] Warfarin [Coumadin] 7.5 mg PO TUSA@209906/04/23 [History] Metoprolol Tartrate [Lopressor] 100 mg PO BID 07/09/23 [History] Verapamil [Isoptin] 40 mg PO BID #30 tab 07/14/23 [Rx] Ergocalciferol [Vitamin D2 (1250 Mcg = 89140 Iu)] 1,250 mcg PO Q14D 03/30/24 [History] Furosemide [Lasix] 80 mg PO BID PRN 03/30/24 [History] metFORMIN HCL ER [Glucophage XR] 1,500 mg PO HS 03/30/24 [History] Acetaminophen Tab [Tylenol] 650 mg PO Q6H #30 tab 04/01/24 [Rx] Docusate [Colace] 100 mg PO BID #20 capsule 04/01/24 [Rx] Ibuprofen [Motrin] 600 mg PO Q6HR PRN #40 tab 04/01/24 [Rx] oxyCODONE HCL [OxyIR] 5 mg PO Q6H PRN 3 Days #10 tab 04/01/24 [Rx] Follow up Appointment(s)/Referral(s): Mickey Ulloa MD [STAFF PHYSICIAN] - 1 Week Patient Instructions/Handouts: Ventral Hernia Repair (GEN) Discharge Disposition: HOME SELF-CARE
[2024-04-03 14:56] VITALS: BP 103/66; PULSE 56; TEMP 98.4
== END 2024-04-03 15:36 | disposition home or self-care (01) ==
LOC: OR 05:38 → 4SSUR 12:51 → OR 04-03 15:36
PROVIDERS: ATTEND Surgery
DX: K43.0 Incisional hernia with obstruction, without gangrene (principal); E11.9 Type 2 diabetes mellitus without complications; E66.01 Morbid (severe) obesity due to excess calories; E78.5 Hyperlipidemia, unspecified; F32.A Depression, unspecified; F41.9 Anxiety disorder, unspecified; G47.33 Obstructive sleep apnea (adult) (pediatric); G89.18 Other acute postprocedural pain; I10 Essential (primary) hypertension; I48.19 Other persistent atrial fibrillation; J44.89 Other specified chronic obstructive pulmonary disease; K21.9 Gastro-esophageal reflux disease without esophagitis; M10.9 Gout, unspecified; Z68.42 Body mass index [BMI] 45.0-49.9, adult; Z79.01 Long term (current) use of anticoagulants; Z79.84 Long term (current) use of oral hypoglycemic drugs; Z80.1 Family history of malignant neoplasm of trachea, bronchus and lung; Z86.718 Personal history of other venous thrombosis and embolism; Z86.73 Personal history of transient ischemic attack (TIA), and cerebral infarction without residual deficits; Z87.19 Personal history of other diseases of the digestive system; Z90.49 Acquired absence of other specified parts of digestive tract; Z90.89 Acquired absence of other organs; Z98.890 Other specified postprocedural states
CPT/HCPCS: 49614; 64999; 88305; 80053; 85025; 85610; C1781; J2250; J0330; J1644; J1100; J2710; J0690; J2405 ×2; J2003; J1650 ×2; J3010; J1171 ×2; J2795; J1885 ×3; J2704; J1790; J1596

== ENCOUNTER → 2024-10-19 | Outpatient (CLI) | payer OTHER ==
[2024-10-19 10:14] LABS: INR 1.1 (<1.2); Prothrombin Time 12.1 sec (10.0-12.5)
== END | disposition home or self-care (01) ==
LOC: LABWHC1 09:12
PROVIDERS: ATTEND Dentist Oral and Maxillofacial Surgery
DX: D68.32 Hemorrhagic disorder due to extrinsic circulating anticoagulants (principal)
CPT/HCPCS: 36415; 85610